=== PATIENT | female | born 1960 | race Caucasian/White ===

== ENCOUNTER 2016-06-18 11:49 | Outpatient (CLI) ==
[2015-09-13 19:44] VITALS: BMI 40.2
[2016-06-18 13:38] LABS: BASOPHILS # (AUTO) 0.1 K/uL (0-0.2); BASOPHILS % (AUTO) 0.7 % (0.0-3.0); EOSINOPHILS # (AUTO) 0.3 K/ul (0.0-0.7); EOSINOPHILS % (AUTO) 2.9 % (0.0-7.0); HEMATOCRIT 47.4 % (37.0-47.0); HEMOGLOBIN 15.3 g/dl (12.0-16.0); IMMATURE GRANULOCYTE % (AUTO) 0.6 % (0.0-5.0); LYMPHOCYTES # (AUTO) 5.2 K/uL (0.60-3.4); LYMPHOCYTES % (AUTO) 48.3 (10.0-50.0); MEAN CORPUSCULAR HEMOGLOBIN 30.5 pg (27.0-31.0); MEAN CORPUSCULAR HGB CONC 32.3 (31.8-35.4); MEAN CORPUSCULAR VOLUME 94.4 fl (81.0-99.0); MONOCYTES # (AUTO) 0.7 K/uL (0.4-2.0); MONOCYTES % (AUTO) 6.3 (0-10); NEUTROPHILS # (AUTO) 4.4 K/ul (2.0-6.9); NEUTROPHILS % (AUTO) 41.2; PLATELET COUNT 190 10^3/uL (140-440); RED BLOOD COUNT 5.02 10^6/ul (4.20-5.40)
[2016-06-18 13:55] LABS: ALBUMIN 3.4 g/dL (3.4-5.0); ANION GAP 15.3; BILIRUBIN,TOTAL 0.5 mg/dL (0.00-1.20); BUN/CREATININE RATIO 31.16; CALCIUM 9.6 mg/dL (8.2-10.2); CHOL/HDL RATIO 2.7 (4.5-5.5); CREATININE 0.77 mg/dL (0.60-1.30); POTASSIUM 3.3 mmol/L (3.5-5.10); TOTAL PROTEIN 6.8 g/dL (6.4-8.2)
== END 2016-06-18 11:50 | disposition home or self-care (01) ==
LOC: LAB 11:49
PROVIDERS: ATTEND General Practice
DX: R30.0 Dysuria (principal); R35.0 Frequency of micturition; E11.8 Type 2 diabetes mellitus with unspecified complications; D64.9 Anemia, unspecified; E03.9 Hypothyroidism, unspecified; I10 Essential (primary) hypertension; J44.9 Chronic obstructive pulmonary disease, unspecified; Z79.899 Other long term (current) drug therapy
CPT/HCPCS: 36415; 80053; 80061; 83036; 85025

== ENCOUNTER 2016-07-10 15:44 | Outpatient (CLI) ==
[2015-09-13 19:44] VITALS: BMI 40.2
[2016-07-11 07:38] LABS: BILIRUBIN,URINE Negative (NEGATIVE); KETONES,URINE Negative (NEGATIVE); LEUKOCYTE ESTERASE ,URINE Negative (NEGATIVE); NITRITE,URINE Negative (NEGATIVE); PROTEIN,URINE Negative (NEGATIVE); URINE, BLOOD Negative (NEGATIVE)
[2016-07-11 07:40] LABS: ADD URINE MICROSCOPIC NO
== END 2016-07-10 15:45 | disposition home or self-care (01) ==
LOC: LAB 15:44
PROVIDERS: ATTEND General Practice
DX: Z79.899 Other long term (current) drug therapy (principal)
CPT/HCPCS: 81001

== ENCOUNTER 2016-08-13 16:20 | Outpatient (CLI) ==
[2015-09-13 19:44] VITALS: BMI 40.2
[2016-08-13 17:20] LABS: ALBUMIN 3.9 g/dL (3.4-5.0); ANION GAP 19.9; BUN/CREATININE RATIO 19.67; CALCIUM 10.2 mg/dL (8.2-10.2); CREATININE 1.22 mg/dL (0.60-1.30); PHOSPHORUS 4.2 mg/dL (2.5-4.9); POTASSIUM 3.9 mmol/L (3.5-5.10)
== END 2016-08-13 16:21 | disposition home or self-care (01) ==
LOC: LAB 16:20
PROVIDERS: ATTEND General Practice
DX: E11.8 Type 2 diabetes mellitus with unspecified complications (principal); I10 Essential (primary) hypertension; E03.9 Hypothyroidism, unspecified; D64.9 Anemia, unspecified; Z79.899 Other long term (current) drug therapy
CPT/HCPCS: 36415; 80069; 83036

== ENCOUNTER 2016-09-04 12:26 | Outpatient (CLI) ==
[2015-09-13 19:44] VITALS: BMI 40.2
--- NOTE | 2016-09-04 13:50 | US ---
EXAM: Thyroid ultrasound HISTORY: Hypothyroidism. COMPARISON: None TECHNIQUE: Sonographic evaluation of the thyroid was performed with limited doppler. FINDINGS: The right thyroid measures 8.5 x 3.7 x 3.1 cm. There is heterogeneous echogenicity and no rmal color Doppler flow. There is a hyperechoic nodule in the right thyroid measuring 0.6 cm in mitch meter with no internal color Doppler flow. The isthmus measures 1.3 cm in thickness and heterogeneity echogenicity. The left thyroid measures 6.4 x 3.8 x 2.3 cm. There is heterogeneous echogenicity and normal color Doppler flow. There is a hypoechoic 1.4 x 1.3 x 1.2 cm nodule with minimal internal echogenicity wi th no internal color Doppler flow. IMPRESSION: Nonspecific heterogeneous echogenicity of the thyroid with hyperechoic nodule on the right less than 1 cm. There is a complex hypoechoic nodule in the left thyroid measuring 1.4 x 1.3 x 1.2 cm. These findings may represent a multinodular goiter, but follow-up ultrasound is recommended. If further e valuation is clinically indicated, nuclear medicine study may be obtained versus soft tissue samplin g.
== END 2016-09-04 12:27 | disposition home or self-care (01) ==
LOC: RAD 12:26
PROVIDERS: ATTEND General Practice
DX: E03.9 Hypothyroidism, unspecified (principal); E11.8 Type 2 diabetes mellitus with unspecified complications

== ENCOUNTER 2016-09-19 15:57 | Outpatient (CLI) ==
[2015-09-13 19:44] VITALS: BMI 40.2
== END 2016-09-19 15:58 | disposition home or self-care (01) ==
LOC: LAB 15:57
PROVIDERS: ATTEND General Practice
DX: E03.9 Hypothyroidism, unspecified (principal); E11.8 Type 2 diabetes mellitus with unspecified complications; I10 Essential (primary) hypertension
CPT/HCPCS: 36415; 84443

== ENCOUNTER 2016-11-11 10:49 | Outpatient (CLI) ==
[2015-09-13 19:44] VITALS: BMI 40.2
[2016-11-11 13:13] LABS: BASOPHILS # (AUTO) 0.1 K/uL (0-0.2); BASOPHILS % (AUTO) 0.6 % (0.0-3.0); EOSINOPHILS # (AUTO) 0.3 K/ul (0.0-0.7); HEMATOCRIT 44.9 % (37.0-47.0); HEMOGLOBIN 15.8 g/dl (12.0-16.0); IMMATURE GRANULOCYTE % (AUTO) 0.2 % (0.0-5.0); LYMPHOCYTES # (AUTO) 2.9 K/uL (0.60-3.4); LYMPHOCYTES % (AUTO) 34.8 (10.0-50.0); MEAN CORPUSCULAR HEMOGLOBIN 32.1 pg (27.0-31.0); MEAN CORPUSCULAR HGB CONC 35.2 (31.8-35.4); MEAN CORPUSCULAR VOLUME 91.3 fl (81.0-99.0); MONOCYTES # (AUTO) 0.8 K/uL (0.4-2.0); MONOCYTES % (AUTO) 9.5 (0-10); NEUTROPHILS # (AUTO) 4.3 K/ul (2.0-6.9); NEUTROPHILS % (AUTO) 51.9; PLATELET COUNT 173 10^3/uL (140-440); RED BLOOD COUNT 4.92 10^6/ul (4.20-5.40); WHITE BLOOD COUNT 8.31 K/ul (4.6-10.2)
[2016-11-11 13:31] LABS: ALBUMIN 3.5 g/dL (3.4-5.0); ALBUMIN/GLOBULIN RATIO 1.03; ANION GAP 13.8; BILIRUBIN,TOTAL 0.64 mg/dL (0.00-1.20); BUN/CREATININE RATIO 16.86; CALCIUM 9.8 mg/dL (8.2-10.2); CHOL/HDL RATIO 4.8 (4.5-5.5); CREATININE 0.83 mg/dL (0.60-1.30); POTASSIUM 3.8 mmol/L (3.5-5.10); TOTAL PROTEIN 6.9 g/dL (6.4-8.2)
== END 2016-11-11 10:50 | disposition home or self-care (01) ==
LOC: LAB 10:49
PROVIDERS: ATTEND General Practice
DX: E11.8 Type 2 diabetes mellitus with unspecified complications (principal); I10 Essential (primary) hypertension; J44.9 Chronic obstructive pulmonary disease, unspecified; E03.9 Hypothyroidism, unspecified; D64.9 Anemia, unspecified; L12.0 Bullous pemphigoid; Z68.43 Body mass index [BMI] 50.0-59.9, adult; Z79.899 Other long term (current) drug therapy
CPT/HCPCS: 36415; 80053; 80061; 83036; 85025

== ENCOUNTER 2016-11-12 16:17 | Outpatient (CLI) ==
[2015-09-13 19:44] VITALS: BMI 40.2
[2016-11-12 16:47] LABS: BILIRUBIN,URINE Negative (NEGATIVE); KETONES,URINE Trace (NEGATIVE); LEUKOCYTE ESTERASE ,URINE Trace (NEGATIVE); NITRITE,URINE Negative (NEGATIVE); PH,URINE 6.5 (5-9); PROTEIN,URINE Negative (NEGATIVE); URINE, BLOOD Negative (NEGATIVE)
[2016-11-12 16:51] LABS: ADD URINE MICROSCOPIC YES
== END 2016-11-12 16:18 | disposition home or self-care (01) ==
LOC: LAB 16:17
PROVIDERS: ATTEND General Practice
DX: E11.8 Type 2 diabetes mellitus with unspecified complications (principal); I10 Essential (primary) hypertension; J44.9 Chronic obstructive pulmonary disease, unspecified; E03.9 Hypothyroidism, unspecified; D64.9 Anemia, unspecified; L12.0 Bullous pemphigoid; Z68.43 Body mass index [BMI] 50.0-59.9, adult; Z79.899 Other long term (current) drug therapy
CPT/HCPCS: 81001

== ENCOUNTER 2016-11-25 16:18 | Outpatient (CLI) ==
[2015-09-13 19:44] VITALS: BMI 40.2
[2016-11-25 16:32] LABS: BASOPHILS % (AUTO) 0.4 % (0.0-3.0); EOSINOPHILS # (AUTO) 0.2 K/ul (0.0-0.7); EOSINOPHILS % (AUTO) 2.1 % (0.0-7.0); HEMATOCRIT 45.5 % (37.0-47.0); IMMATURE GRANULOCYTE % (AUTO) 0.4 % (0.0-5.0); LYMPHOCYTES # (AUTO) 3.1 K/uL (0.60-3.4); LYMPHOCYTES % (AUTO) 34.6 (10.0-50.0); MEAN CORPUSCULAR HGB CONC 35.2 (31.8-35.4); MONOCYTES # (AUTO) 0.7 K/uL (0.4-2.0); MONOCYTES % (AUTO) 7.6 (0-10); NEUTROPHILS % (AUTO) 54.9; PLATELET COUNT 171 10^3/uL (140-440); WHITE BLOOD COUNT 9.08 K/ul (4.6-10.2)
[2016-11-25 16:49] LABS: ALBUMIN 3.5 g/dL (3.4-5.0); ALBUMIN/GLOBULIN RATIO 0.97; ANION GAP 16.6; BILIRUBIN,TOTAL 0.48 mg/dL (0.00-1.20); BUN/CREATININE RATIO 13.86; CALCIUM 9.5 mg/dL (8.2-10.2); CREATININE 1.01 mg/dL (0.60-1.30); POTASSIUM 3.6 mmol/L (3.5-5.10); TOTAL PROTEIN 7.1 g/dL (6.4-8.2)
[2016-11-25 16:50] LABS: BILIRUBIN,URINE Negative (NEGATIVE); KETONES,URINE Trace (NEGATIVE); LEUKOCYTE ESTERASE ,URINE Negative (NEGATIVE); NITRITE,URINE Negative (NEGATIVE); PROTEIN,URINE Negative (NEGATIVE); URINE, BLOOD Negative (NEGATIVE)
[2016-11-25 16:53] LABS: ADD URINE MICROSCOPIC NO
== END 2016-11-25 16:19 | disposition home or self-care (01) ==
LOC: LAB 16:18
PROVIDERS: ATTEND General Practice
DX: E11.8 Type 2 diabetes mellitus with unspecified complications (principal); I10 Essential (primary) hypertension; E03.9 Hypothyroidism, unspecified; Z79.899 Other long term (current) drug therapy
CPT/HCPCS: 36415; 80053; 80061; 81001; 83036; 85025

== ENCOUNTER 2016-11-26 16:13 | Outpatient (CLI) ==
[2015-09-13 19:44] VITALS: BMI 40.2
== END 2016-11-26 16:14 | disposition home or self-care (01) ==
LOC: LAB 16:13
PROVIDERS: ATTEND General Practice
DX: R74.8 Abnormal levels of other serum enzymes (principal)
CPT/HCPCS: 36415; 84075; 84080

== ENCOUNTER 2016-12-30 16:25 | Outpatient (CLI) ==
[2015-09-13 19:44] VITALS: BMI 40.2
== END 2016-12-30 16:26 | disposition home or self-care (01) ==
LOC: LAB 16:25
PROVIDERS: ATTEND General Practice
DX: R74.8 Abnormal levels of other serum enzymes (principal)
CPT/HCPCS: 36415; 84075; 84080

== ENCOUNTER 2017-03-04 12:43 | Outpatient (CLI) ==
[2015-09-13 19:44] VITALS: BMI 40.2
[2017-03-04 13:04] LABS: BASOPHILS # (AUTO) 0.1 K/uL (0-0.2); BASOPHILS % (AUTO) 0.7 % (0.0-3.0); EOSINOPHILS # (AUTO) 0.3 K/ul (0.0-0.7); EOSINOPHILS % (AUTO) 3.7 % (0.0-7.0); HEMATOCRIT 43.8 % (37.0-47.0); HEMOGLOBIN 15.2 g/dl (12.0-16.0); IMMATURE GRANULOCYTE % (AUTO) 0.4 % (0.0-5.0); LYMPHOCYTES # (AUTO) 2.2 K/uL (0.60-3.4); LYMPHOCYTES % (AUTO) 30.9 (10.0-50.0); MEAN CORPUSCULAR HGB CONC 34.7 (31.8-35.4); MEAN CORPUSCULAR VOLUME 89.4 fl (81.0-99.0); MONOCYTES # (AUTO) 0.5 K/uL (0.4-2.0); MONOCYTES % (AUTO) 7.3 (0-10); NEUTROPHILS # (AUTO) 4.1 K/ul (2.0-6.9); PLATELET COUNT 204 10^3/uL (140-440); WHITE BLOOD COUNT 7.22 K/ul (4.6-10.2)
[2017-03-04 13:24] LABS: ALBUMIN/GLOBULIN RATIO 0.73; ANION GAP 13.7; BILIRUBIN,TOTAL 0.38 mg/dL (0.00-1.20); BUN/CREATININE RATIO 27.63; CALCIUM 9.5 mg/dL (8.2-10.2); CHOL/HDL RATIO 6.5 (4.5-5.5); CREATININE 0.76 mg/dL (0.60-1.30); POTASSIUM 3.7 mmol/L (3.5-5.10); TOTAL PROTEIN 7.1 g/dL (6.4-8.2)
[2017-03-05 15:18] LABS: ALKALINE PHOSPHATASE, S 156 IU/L (39-117); INTESTINAL FRAC.: 49 % (0-18)
== END 2017-03-04 12:44 | disposition home or self-care (01) ==
LOC: LAB 12:43
PROVIDERS: ATTEND General Practice
DX: E11.8 Type 2 diabetes mellitus with unspecified complications (principal); R74.8 Abnormal levels of other serum enzymes; I10 Essential (primary) hypertension; Z79.899 Other long term (current) drug therapy
CPT/HCPCS: 36415; 80053; 80061; 83036; 84075; 84080; 85025

== ENCOUNTER 2017-03-24 08:23 | Outpatient (CLI) ==
[2015-09-13 19:44] VITALS: BMI 40.2
--- NOTE | 2017-03-24 09:33 | CT ---
EXAM: CT abdomen pelvis without contrast HISTORY: Abnormal levels of other serum enzymes COMPARISON: None TECHNIQUE: CT abdomen pelvis performed with and without intravenous contrast. Coronal and sagittal reformatted images obtained. FINDINGS: Granulomatous calcification lower chest. No free air. No acute abnormalities of the bone s. Degenerative change in the spine. Heart normal in size. There is enlargement of the caudate lob e of the liver. Patient status post cholecystectomy. Pancreas unremarkable. Granulomatous calcific ation in the spleen. Spleen otherwise unremarkable. Adrenals unremarkable. Kidneys unremarkable. Aorta normal in caliber with mild atherosclerosis. Bladder unremarkable. Patient status post hyster ectomy. Several prominent casper hepatic/portacaval lymph nodes present. No ascites. Small fat-cont aining umbilical hernia. Stomach appears normal. No dilated loops small bowel. Small bowel fecaliza tion, suggesting dysmotility. Appendix not definitively identified. Mild to moderate fecal retention in the colon. IMPRESSION: 1. No acute inflammatory process identified in the abdomen or pelvis. 2. Enlargement of the caudate lobe of the liver, a finding that can be seen in cirrhotic or fibrotic configuration. 3. Several prominent casper hepatic/portacaval lymph nodes, nonspecific, though can be seen in right parenchymal disease. 4. Mild to moderate fecal retention in the colon. Small bowel fecalization, suggesting dysmotility.
== END 2017-03-24 08:24 | disposition home or self-care (01) ==
LOC: RAD 08:23
PROVIDERS: ATTEND General Practice
DX: R74.8 Abnormal levels of other serum enzymes (principal)

== ENCOUNTER 2017-04-30 12:50 | Inpatient (IN) ==
[2017-04-30] MEDS ORDERED: SODIUM CHLORIDE 1,000 ML IV STA (14:07)
[2017-04-30 14:26] LABS: BASOPHILS % (AUTO) 0.2 % (0.0-3.0); HEMATOCRIT 47.4 % (37.0-47.0); HEMOGLOBIN 16.6 g/dl (12.0-16.0); IMMATURE GRANULOCYTE % (AUTO) 0.7 % (0.0-5.0); LYMPHOCYTES # (AUTO) 1.8 K/uL (0.60-3.4); MEAN CORPUSCULAR HEMOGLOBIN 31.7 pg (27.0-31.0); MEAN CORPUSCULAR VOLUME 90.5 fl (81.0-99.0); MONOCYTES # (AUTO) 1.8 K/uL (0.4-2.0); MONOCYTES % (AUTO) 10.1 (0-10); NEUTROPHILS # (AUTO) 14.2 K/ul (2.0-6.9); PLATELET COUNT 185 10^3/uL (140-440); RED BLOOD COUNT 5.24 10^6/ul (4.20-5.40); WHITE BLOOD COUNT 17.98 K/ul (4.6-10.2)
[2017-04-30 15:06] LABS: BILIRUBIN,URINE Negative (NEGATIVE); KETONES,URINE 1+ (NEGATIVE); LEUKOCYTE ESTERASE ,URINE Negative (NEGATIVE); NITRITE,URINE Negative (NEGATIVE); PH,URINE 5.5 (5-9); PROTEIN,URINE Negative (NEGATIVE); URINE, BLOOD 1+ (NEGATIVE)
[2017-04-30 15:10] LABS: ADD URINE MICROSCOPIC YES
--- NOTE | 2017-04-30 15:14 | CT ---
EXAM: CT of the chest without contrast History: Cough. Comparison: Chest radiograph 06/14/2015, chest CT 01/27/2009 Technique: Multiplanar CT images through the thorax were obtained without the administration of IV c ontrast Findings: Heart size is normal. Trace pericardial fluid. No pathologically enlarged thoracic lymph nodes. Thyroid is again diffusely enlarged. Calcified granulomas again seen within the thorax. No consolidated pneumonia. Incidental azygos fissure. No pleural fluid and no pneumothorax. No suspi cious lung masses or lung nodules. Within the visualized upper abdomen, status post cholecystectomy. The liver is probably fatty. No a cute osseous abnormalities. Impression: 1. No acute intrathoracic process. 2. No change in the diffuse thyroid enlargement. 3. Hepatic steatosis
[2017-04-30 15:39] LABS: ALBUMIN 3.1 g/dL (3.4-5.0); ALBUMIN/GLOBULIN RATIO 0.62; BILIRUBIN,TOTAL 1.05 mg/dL (0.00-1.20); BUN/CREATININE RATIO 12.74; CREATININE 1.02 mg/dL (0.60-1.30); TOTAL PROTEIN 8.1 g/dL (6.4-8.2); TROPONIN I 0.052 ng/ml (0.0000-0.4000)
[2017-04-30] MEDS ORDERED: ZOFRAN 4 MG/2 ML IVP STA (16:08)
[2017-04-30] MEDS ORDERED: MORPHINE 10 MG/ML SYRINGE IVP STA (16:08)
--- NOTE | 2017-04-30 16:11 | ED.PDOC ---
General ED Provider: Dr. LOAN GAMBOA Chief Complaint: Nausea/Vomiting Stated Complaint: RASH RIGHT BREAST WITH BREAST PAIN RIGHTSIDED Time Seen by Physician: 13:00 (SEE PHOTOS NURSE PRESENT AT ALL TIMES) Mode of Arrival: Walk-In Information Source: Patient Exam Limitations: No limitations Primary Care Provider[facility] Nursing and Triage Documentation Reviewed and Agree: Yes (SEE PHOTOS) Skin Complaint Exam - Skin/Soft Tissue Complaint/Exam Onset/Duration: 1 DAY BREAST TENDERNESS , FEVER , RIGHT BREAST RASH Symptoms Are: Still present Timing: Constant Initial Severity: Moderate Current Severity: Moderate Location: RIGHT BREAST PHOTOS ATTACHED Character: Reports: Redness, Swelling, Painful. Denies: Raised Aggravating: Reports: Touch Alleviating: Reports: None Associated Signs and Symptoms: Reports: Fever, Tenderness, Red streaks. Denies : Itching, Drainage, Bruising, Joint swelling Related History: Reports: Immunocompromised (D.M.). Denies: Similar episode, Recent trauma, Foreign body, Insect bite/sting, Recent travel Related Surgical History: Reports: None Recent Exposure to Others w/Similar Symptoms: No Skin Findings: Present: Erythema, Other (CELLULITIS ). Absent: Wet ulceration, Dry ulceration, Pustules Joint Tenderness Present: No Differential Diagnoses: Cellulitis Review of Systems - Review Of Systems Constitutional: Reports: No symptoms Eyes: Reports: No symptoms Ears, Nose, Mouth, Throat: Reports: No symptoms Respiratory: Reports: No symptoms Cardiac: Reports: No symptoms GI: Reports: No symptoms : Reports: No symptoms Musculoskeletal: Reports: No symptoms Skin: Reports: Rash (RIGHT BREAST) Neurological: Reports: No symptoms Endocrine: Reports: No symptoms Hematologic/Lymphatic: Reports: No symptoms All Other Systems: Reviewed and Negative Past Medical History - Past Medical History Endocrine: Reports: DM 2, Hypothyroid Cardiovascular: Reports: Hypertension Respiratory: Reports: COPD Hematological: Reports: Anemia Gastrointestinal: Reports: None Genitourinary: Reports: None Neuro/Psych: Reports: None Musculoskeletal: Reports: None Cancer: Reports: None Last Menstrual Period: NA - Surgical History General Surgical History: Reports: Hysterectomy, Cholecystectomy - Family History Family History: Reports: None - Social History Smoking Status: Former smoker Hx Substance Use: No Alcohol Screening: None Physical Exam - Physical Exam Appearance: Well-appearing, No pain distress, Well-nourished Eyes: YURI, EOMI, Conjunctiva clear ENT: Ears normal, Nose normal, Oropharynx normal Respiratory: Airway patent, Breath sounds clear, Breath sounds equal, Respirations nonlabored Cardiovascular: RRR, Pulses normal, No rub, No murmur GI/: Soft, Nontender, No masses, Bowel sounds normal, No Organomegaly Musculoskeletal: Normal strength, ROM intact, No edema, No calf tenderness Skin: Warm, Dry (RIGHT BREAST RASH PAIN SEE PHOTOS) Neurological: Sensation intact, Motor intact, Reflexes intact, Cranial nerves intact, Alert, Oriented Psychiatric: Affect appropriate, Mood appropriate Re-Evaluation - Re-Evaluation Time of Re-Evaluation: 16:14 (ADMITTED) Status: Unchanged Vital Signs Stable: Yes Pain Level: 6 Appearance: NAD Lungs: Clear Skin: Warm and Dry Neuro: Alert and Oriented X3 CV: RRR Physician Notification - Case Discussed Physician Notified: ESPINAL Time of Notification: 16:14 Admit To: Inpatient Critical Care Note - Critical Care Note Total Time (mins): 0 Course - Course Hematology/Chemistry: 04/30/17 14:18 04/30/17 14:18 Orders, Labs, Meds: Lab Review 04/30/17 04/30/17 04/30/17 14:18 14:18 14:18 WBC 17.98 H RBC 5.24 Hgb 16.6 H Hct 47.4 H MCV 90.5 MCH 31.7 H MCHC 35.0 RDW Coeff of Brianne 12.6 Plt Count 185 Immature Gran % (Auto) 0.7 Neut % (Auto) 79.0 Lymph % (Auto) 10.0 [place] % (Auto) 10.1 H Eos % (Auto) 0.0 Baso % (Auto) 0.2 Immature Gran # (Auto) 0.1 Neut # 14.2 H Lymph # 1.8 [place] # 1.8 Eos # 0.0 Baso # 0.0 Sodium 135 L Potassium 4.0 Chloride 98 Carbon Dioxide 23 Anion Gap 18.0 BUN 13 Creatinine 1.02 Estimated GFR (MDRD) 56.00 BUN/Creatinine Ratio 12.74 Glucose 490 H Lactic Acid 31.5 H Calcium 10.0 Total Bilirubin 1.05 AST 14 L ALT 35 Alkaline Phosphatase 115 H Total Creatine Kinase 44 Troponin I 0.0520 Total Protein 8.1 Albumin 3.1 L Globulin 5.0 Albumin/Globulin Ratio 0.62 Procalcitonin Urine Color Urine Clarity Urine pH Ur Specific [place] Urine Protein Urine Glucose (UA) Urine Ketones Urine Blood Urine Nitrite Urine Bilirubin Urine Urobilinogen Ur Leukocyte Esterase Urine Microscopic RBC Ur Squamous Epith Cells Urine Yeast 04/30/17 04/30/17 14:18 14:31 WBC RBC Hgb Hct MCV MCH MCHC RDW Coeff of Brianne Plt Count Immature Gran % (Auto) Neut % (Auto) Lymph % (Auto) [place] % (Auto) Eos % (Auto) Baso % (Auto) Immature Gran # (Auto) Neut # Lymph # [place] # Eos # Baso # Sodium Potassium Chloride Carbon Dioxide Anion Gap BUN Creatinine Estimated GFR (MDRD) BUN/Creatinine Ratio Glucose Lactic Acid Calcium Total Bilirubin AST ALT Alkaline Phosphatase Total Creatine Kinase Troponin I Total Protein Albumin Globulin Albumin/Globulin Ratio Procalcitonin 3.36 Urine Color Yellow Urine Clarity Clear Urine pH 5.5 Ur Specific [place] <=1.005 Urine Protein Negative Urine Glucose (UA) 2+ Urine Ketones 1+ Urine Blood 1+ Urine Nitrite Negative Urine Bilirubin Negative Urine Urobilinogen 0.2 Ur Leukocyte Esterase Negative Urine Microscopic RBC 0-2 Ur Squamous Epith Cells 0-2 Urine Yeast Trace Orders Category Date Time Status EKG-(ED ONLY) Stat CARDIO 04/30/17 14:07 Ordered ED IV/MEDIPORT/POWERPORT .ONCE EMERGENCY 04/30/17 14:07 Active BLOOD CULTURE (ED ONLY) Stat LAB 04/30/17 14:18 Received CBC W/ AUTO DIFF Stat LAB 04/30/17 14:18 Completed COMPREHENSIVE METABOLIC PANEL Stat LAB 04/30/17 14:18 Received CREATINE KINASE Stat LAB 04/30/17 14:18 Received LACTIC ACID Stat LAB 04/30/17 14:18 Completed MOLECULAR GROUP A STREP Stat LAB 04/30/17 14:40 Results PROCALCITONIN Stat LAB 04/30/17 14:18 Completed STREP SCREEN Stat LAB 04/30/17 14:40 Results TROPONIN I Stat LAB 04/30/17 14:18 Received URINALYSIS C & S IF INDICATED Stat LAB 04/30/17 14:31 Completed 0.9 % Sodium Chloride [Saline Flush] MEDS 04/30/17 14:07 Active 1 syr IVF PRN PRN Morphine Sulfate [Morphine 10 mg/ml Syringe] MEDS 04/30/17 16:08 Stat 4 mg IVP ONCE STA Ondansetron HCl/Pf [Zofran 4 mg/2 ml] MEDS 04/30/17 16:08 Stat 4 mg IVP ONCE STA Sodium Chloride 0.9% [Sodium Chloride] 1,000 ml MEDS 04/30/17 14:[address] ABDOMEN/PELVIS WO CONTRAST Stat RADS 04/30/17 15:[address] CHEST W/O CONTRAST Stat RADS 04/30/17 14:08 Completed Medications Generic Name Dose Route Start Last Admin Trade Name Freq PRN Reason Stop Dose Admin Morphine Sulfate 4 mg 04/30/17 16:08 Morphine 10 Mg/Ml Syringe IVP 04/30/17 16:09 ONCE STA Ondansetron HCl 4 mg 04/30/17 16:08 Zofran 4 Mg/2 Ml IVP 04/30/17 16:09 ONCE STA Sodium Chloride 1 syr 04/30/17 14:07 Saline Flush IVF PRN PRN To flush IV Discontinued Medications Generic Name Dose Route Start Last Admin Trade Name Freq PRN Reason Stop Dose Admin Sodium Chloride 1,000 mls @ 1,000 mls/hr 04/30/17 14:07 04/30/17 14:43 Sodium Chloride IV 04/30/17 15:06 1,000 mls/hr BOLUS STA Administration Vital Signs: Temp Pulse Resp BP Pulse Ox 04/30/17 13:04 102.2 F H 118 H 20 134/67 95 Departure - Departure Time of Disposition: 16:13 (ADMITTED AFTER DISCUSSION WITH DOCTOR KYLIE ) Disposition: HOME SELF-CARE Discharge Problem: Nausea, Vomiting, Cellulitis of right breast, Diabetes mellitus type 2 Instructions: Cellulitis (ED) Condition: Good Pt referred to PMD for follow-up: Yes Additional Instructions: Please call your Family Physician as soon as possible to schedule a follow-up appointment. Allergies/Adverse Reactions: Allergies latex Adverse Reaction (Unverified 04/08/17 13:54) Home Medications: Ambulatory Orders Hydrochlorothiazide 12.5 mg PO DAILY 02/15/13 Disposition Discussed With: Patient
[2017-04-30] MEDS ORDERED: MORPHINE 2 MG/ML SYRINGE IM STA (16:15)
[2017-04-30] MEDS ORDERED: ZOFRAN 4 MG/2 ML IVP PRN (16:19)
[2017-04-30] MEDS ORDERED: HUMULIN R SUBCUT STA (16:21)
--- NOTE | 2017-04-30 16:21 | CT ---
EXAM: CT Abdomen without contrast. CT Pelvis without contrast. HISTORY: Right-sided abdominal pain. Nausea and vomiting. Fever. COMPARISON: 03/24/2017. TECHNIQUE: Multiple axial images of the abdomen and pelvis were obtained without intravenous contras t. Images were reformatted in the coronal plane. FINDINGS: Please note that evaluation of the abdominal and pelvic structures is limited due to lack of intravenous contrast. No acute abnormality identified in the lung bases. Degenerative changes present in the spine. The liver is enlarged and demonstrates a nodular surface contour. Port hepatic lymph nodes again not ed. Gallbladder is absent. Pancreas, spleen, adrenal glands demonstrate normal contour. No calcifi ed renal stones or hydronephrosis detected. No ureteral or bladder calculi are seen. Bladder is unr emarkable. Uterus is absent. The bowel is normal in course and caliber without evidence for obstruction or inflammatory process. The appendix is not seen. Fat-containing umbilical hernia noted. No free fluid or free air identifi ed. Atherosclerotic calcifications are present. IMPRESSION: 1. No acute abnormality within the abdomen or pelvis. 2. Cirrhosis.
[2017-04-30] MEDS ORDERED: ROCEPHIN ONE (16:50)
[2017-04-30] MEDS: ROCEPHIN 1 GM in SODIUM CHLORIDE 50 ML IV SCH (16:57)
[2017-04-30] MEDS: SODIUM CHLORIDE 1,000 ML IV SCH (16:57)
[2017-04-30] MEDS ORDERED: VANCOMYCIN 1 GM in SODIUM CHLORIDE 250 ML IV ONE (17:00)
[2017-04-30] MEDS ORDERED: MORPHINE 4 MG/ML VIAL IVP SCH (18:00)
[2017-04-30 18:07] VITALS: BMI 46.7
[2017-04-30] MEDS ORDERED: NON-FORMULARY MEDICATION (Ferrous Sulfate [Ferrous Sulfate] 1 TAB) PO SCH (21:00)
[2017-04-30] MEDS ORDERED: MORPHINE 4 MG/ML VIAL IVP PRN (21:37)
[2017-04-30] MEDS: HUMULIN R SUBCUT PRN (22:26)
[2017-05-01] MEDS: TYLENOL PO PRN ×2 (02:59→12:09)
[2017-05-01 05:40] LABS: BASOPHILS # (AUTO) 0.1 K/uL (0-0.2); BASOPHILS % (AUTO) 0.2 % (0.0-3.0); HEMATOCRIT 39.1 % (37.0-47.0); HEMOGLOBIN 13.5 g/dl (12.0-16.0); IMMATURE GRANULOCYTE % (AUTO) 1.3 % (0.0-5.0); LYMPHOCYTES # (AUTO) 2.6 K/uL (0.60-3.4); LYMPHOCYTES % (AUTO) 12.5 (10.0-50.0); MEAN CORPUSCULAR HEMOGLOBIN 31.8 pg (27.0-31.0); MEAN CORPUSCULAR HGB CONC 34.5 (31.8-35.4); MEAN CORPUSCULAR VOLUME 92.2 fl (81.0-99.0); MONOCYTES # (AUTO) 2.5 K/uL (0.4-2.0); MONOCYTES % (AUTO) 12.3 (0-10); NEUTROPHILS # (AUTO) 15.2 K/ul (2.0-6.9); NEUTROPHILS % (AUTO) 73.7; PLATELET COUNT 162 10^3/uL (140-440); RED BLOOD COUNT 4.24 10^6/ul (4.20-5.40); WHITE BLOOD COUNT 20.59 K/ul (4.6-10.2)
[2017-05-01 05:59] LABS: ALBUMIN 2.3 g/dL (3.4-5.0); ALBUMIN/GLOBULIN RATIO 0.58; ANION GAP 14.6; BILIRUBIN,TOTAL 0.84 mg/dL (0.00-1.20); BUN/CREATININE RATIO 18.82; CALCIUM 8.5 mg/dL (8.2-10.2); CREATININE 0.85 mg/dL (0.60-1.30); POTASSIUM 3.6 mmol/L (3.5-5.10); TOTAL PROTEIN 6.3 g/dL (6.4-8.2)
[2017-05-01] MEDS: HUMULIN R SUBCUT PRN ×4 (06:14→21:16)
[2017-05-01] MEDS ORDERED: SYNTHROID PO SCH (06:30)
[2017-05-01] MEDS ORDERED: NON-FORMULARY MEDICATION (Hydrochlorothiazide [Hydrochlorothiazide] 12.5 MG) PO SCH ×22 (09:00)
[2017-05-01] MEDS ORDERED: ESTRADIOL 1 MG PO SCH ×22 (09:00)
[2017-05-01] MEDS ORDERED: INSULN ASP SQ SCH (09:00)
[2017-05-01] MEDS ORDERED: LEVOTHYROXINE SODIUM PO SCH (09:00)
[2017-05-01] MEDS ORDERED: [UNRECOGNIZED DRUG - OTHER] SQ SCH (09:00)
[2017-05-01] MEDS ORDERED: BENAZEPRIL HCL PO SCH (09:00)
[2017-05-01] MEDS ORDERED: LOVASTATIN PO SCH (09:00)
[2017-05-01] MEDS ORDERED: VANCOMYCIN 750 MG in SODIUM CHLORIDE 250 ML IV SCH (09:00)
[2017-05-01] MEDS ORDERED: INSULIN ASPART PROT SQ SCH (09:00)
[2017-05-01] MEDS: ESTRADIOL PO SCH (09:36)
[2017-05-01] MEDS: MEVACOR PO SCH (09:36)
[2017-05-01] MEDS: SYNTHROID PO SCH (09:36)
[2017-05-01] MEDS: FERROUS SULFATE PO SCH ×2 (09:37→20:33)
[2017-05-01] MEDS: NORVASC PO SCH (09:37)
[2017-05-01] MEDS: LOTENSIN PO SCH (09:37)
[2017-05-01] MEDS: HYDROCHLOROTHIAZIDE PO SCH (09:37)
[2017-05-01] MEDS: SODIUM CHLORIDE 1,000 ML IV SCH (09:41)
--- NOTE | 2017-05-01 11:51 | PCM.PROG ---
Attending Provider: ATTENDING PROVIDER: Dr. ROMA ESPINAL This patient is seen with Temi Nye, Nurse Practitioner. DATE OF SERVICE: 05/01/17 SUBJECTIVE: This 56 year old WHITE/ F was hospitalized 04/30/17. The patient is lying in bed, alert. She states she had fever last night but none this morning , _Pain is slightly better. REVIEW OF SYSTEMS: CONSTITUTIONAL: No night sweats. No fatigue, malaise, lethargy. No fever or chills. HEENT: Eyes: No visual changes. No eye pain. No eye discharge. ENT: No runny nose. No epistaxis. No sinus pain. No odynophagia. No congestion. RESPIRATORY: No cough, no congestion. No hemoptysis. No shortness of breath. CARDIOVASCULAR: No angina symptoms. No CHF symptoms. No atypical chest pain for CAD. No palpitations. No orthopnea.. GASTROINTESTINAL: No abdominal pain. No nausea or vomiting. No diarrhea or constipation. No hematemesis. No hematochezia. GENITOURINARY: No urgency. No frequency. No dysuria. No hematuria. No obstructive symptoms. No discharge. No pain. No significant abnormal bleeding. MUSCULOSKELETAL: Right breast pain and redness. NEUROLOGICAL: Awake, alert, oriented to time, place and person. No headache. No neck pain. No syncope. No seizures. No dizziness. PSYCHIATRIC: Not anxious. No depression. No suicidal thoughts. No homicidal thoughts. SKIN: Redness and erythema right breast. ENDOCRINE: No unexplained weight loss. No weight gain. HEMATOLOGIC/LYMPHATIC: No anemia. No purpura. No petechiae. No prolonged or excessive bleeding. No palpable lymph nodes. PHYSICAL EXAMINATION: GENERAL: The patient is awake, alert and oriented, lying in bed in no distress. VITAL SIGNS: Temperature 98.4 F, Pulse 107, Respiratory Rate 19, BP 103/63, Pulse Ox 92% HEENT: Head normocephalic, atraumatic. Eyes: Extraocular muscles are intact. Pupils are equal, round and reactive to light and accommodation. Ears: No lesions. Nose appeared normal. Throat: No exudate or erythema. NECK: Supple. No JVD, no carotid bruit. No lymphadenopathy or thyromegaly. LUNGS: Clear to auscultation. Percussion note normal. Chest symmetrical. BREASTS: Right breast erythema right and left lower quadrant with slight tenderness right lower quadrant. No nipple discharge. HEART: S1, S2, no S3. No murmurs. No cyanosis or clubbing. No ascites. Pulses: Dorsalis pedis and posterior tibial pulses +1 to +2 both sides. ABDOMEN: Soft. Non-tender. Bowel sounds active. No CVA tenderness. No mass felt. EXTREMITIES: No edema. Full range of motion of all extremities, equal. NEUROLOGIC: No focal deficit. Cranial nerves II through XII are grossly intact. No headache, no double vision or headache. SKIN: Not dry. Intact. Turgor-normal. LYMPHATIC: No palpable lymph nodes/no lymphedema. MUSCULOSKELETAL: Normal joints with no swelling. Muscle tone is normal. LAB REVIEW: 05/01/17 05:37 05/01/17 05:37 05/01/17 05:37: Sodium 134 L, Potassium 3.6, Chloride 102, Carbon Dioxide 21, Anion Gap 14.6, BUN 16, Creatinine 0.85, Estimated GFR (MDRD) 69.00, BUN/ Creatinine Ratio 18.82, Glucose 439 H D, Calcium 8.5, Total Bilirubin 0.84, AST 13 L, ALT 26, Alkaline Phosphatase 92, Total Protein 6.3 L, Albumin 2.3 L, Globulin 4.0, Albumin/Globulin Ratio 0.58 05/01/17 05:37: WBC 20.59 H, RBC 4.24, Hgb 13.5 D, Hct 39.1 D, MCV 92.2, MCH 31.8 H, MCHC 34.5, RDW Coeff of Brianne 12.7, Plt Count 162, Immature Gran % (Auto) 1.3, Neut % (Auto) 73.7, Lymph % (Auto) 12.5, [place] % (Auto) 12.3 H, Eos % (Auto ) 0.0, Baso % (Auto) 0.2, Immature Gran # (Auto) 0.3, Neut # 15.2 H, Lymph # 2.6 , [place] # 2.5 H, Eos # 0.0, Baso # 0.1 04/30/17 21:48: Glucose 568 H* D ASSESSMENT: 1. Right breast cellulitis 2. Uncontrolled Diabetes Mellitus Type 2 3. Obesity PLAN: 1. US breast, right 2. Toradol 30 mg q.8 JODY 3. A1C 4. Thyroid labs 5. CBC, CMP daily 6. Start Lantus 20 units if Basaglar unavailable Plan and coordination of the patient's care discussed in the presence of Pay Station Department Manager and nurse. CONDITION: Stable SCRIBED BY: Romain JASSOist scribed while in presence of service performed by Dr. Espinal/Temi Nye APRN on 05/01/17 ([id number])
[2017-05-01] MEDS: ROCEPHIN 1 GM in SODIUM CHLORIDE 50 ML IV SCH (12:34)
[2017-05-01] MEDS: HUMALOG MIX 75-25 SUBCUT SCH (12:48)
[2017-05-01] MEDS: TORADOL IVP SCH ×2 (14:39→20:34)
[2017-05-01] MEDS ORDERED: MORPHINE 4 MG/ML SYRINGE IVP PRN (16:00)
[2017-05-01] MEDS ORDERED: DECADRON 4 MG/ML SDV IM STA (16:30)
[2017-05-01] MEDS ORDERED: LANTUS SUBCUT SCH (21:00)
[2017-05-01] MEDS: VANCOMYCIN 750 MG in SODIUM CHLORIDE 250 ML IV SCH (22:54)
[2017-05-02] MEDS: SODIUM CHLORIDE 1,000 ML IV SCH (04:30)
[2017-05-02] MEDS: TORADOL IVP SCH ×3 (05:37→20:16)
[2017-05-02] MEDS: SYNTHROID PO SCH (05:38)
[2017-05-02 05:57] LABS: BASOPHILS # (AUTO) 0.1 K/uL (0-0.2); BASOPHILS % (AUTO) 0.3 % (0.0-3.0); HEMATOCRIT 42.6 % (37.0-47.0); HEMOGLOBIN 14.1 g/dl (12.0-16.0); IMMATURE GRANULOCYTE % (AUTO) 1.2 % (0.0-5.0); LYMPHOCYTES # (AUTO) 1.2 K/uL (0.60-3.4); LYMPHOCYTES % (AUTO) 8.3 (10.0-50.0); MEAN CORPUSCULAR HEMOGLOBIN 30.5 pg (27.0-31.0); MEAN CORPUSCULAR HGB CONC 33.1 (31.8-35.4); MEAN CORPUSCULAR VOLUME 92.2 fl (81.0-99.0); MONOCYTES % (AUTO) 6.5 (0-10); NEUTROPHILS # (AUTO) 12.3 K/ul (2.0-6.9); NEUTROPHILS % (AUTO) 83.7; PLATELET COUNT 166 10^3/uL (140-440); RED BLOOD COUNT 4.62 10^6/ul (4.20-5.40); WHITE BLOOD COUNT 14.67 K/ul (4.6-10.2)
[2017-05-02 06:22] LABS: ALBUMIN 2.2 g/dL (3.4-5.0); ALBUMIN/GLOBULIN RATIO 0.48; ANION GAP 12.5; BILIRUBIN,TOTAL 0.38 mg/dL (0.00-1.20); BUN/CREATININE RATIO 24.46; CALCIUM 8.4 mg/dL (8.2-10.2); CREATININE 0.94 mg/dL (0.60-1.30); POTASSIUM 4.5 mmol/L (3.5-5.10); TOTAL PROTEIN 6.8 g/dL (6.4-8.2)
[2017-05-02] MEDS: HUMULIN R SUBCUT PRN ×4 (06:36→20:17)
[2017-05-02] MEDS: HUMALOG MIX 75-25 SUBCUT SCH (08:18)
[2017-05-02] MEDS: ESTRADIOL PO SCH (08:20)
[2017-05-02] MEDS: HYDROCHLOROTHIAZIDE PO SCH (08:20)
[2017-05-02] MEDS: FERROUS SULFATE PO SCH ×2 (08:21→20:16)
[2017-05-02] MEDS: ROCEPHIN 1 GM in SODIUM CHLORIDE 50 ML IV SCH (08:21)
[2017-05-02] MEDS: NORVASC PO SCH (08:30)
[2017-05-02] MEDS: MEVACOR PO SCH (08:32)
[2017-05-02] MEDS ORDERED: SODIUM CHLORIDE 500 ML IV SCH ×2 (09:00)
--- NOTE | 2017-05-02 09:42 | US ---
EXAM: Right breast ultrasound. History: Red and swollen right breast. Technique: Multiple sonographic images through the right breast were obtained. Color duplex Doppler was used to interrogate vascular flow. Findings: Multifocal ill-defined hypoattenuating areas seen within the right breast and diffuse right breast edema with skin thickening. No drainable fluid collections. Impression: Findings in the right breast could be due to mastitis or underlying inflammatory breast cancer. Recommend followup ultrasound in 1-2 weeks after antibiotic treatment. If this does not reso lve, then an diagnostic mammogram will be necessary.
--- NOTE | 2017-05-02 09:42 | PCM.PROG ---
Attending Provider: ATTENDING PROVIDER: Dr. ROMA ESPINAL This patient is seen with Temi Nye, Nurse Practitioner. DATE OF SERVICE: 05/02/17 SUBJECTIVE: This 56 year old WHITE/ F was hospitalized 04/30/17. The patient is sitting up in bed, alert. Redness slightly improved. Fevers have been lower. REVIEW OF SYSTEMS: CONSTITUTIONAL: No night sweats. No fatigue, malaise, lethargy. No fever or chills. HEENT: Eyes: No visual changes. No eye pain. No eye discharge. ENT: No runny nose. No epistaxis. No sinus pain. No odynophagia. No congestion. RESPIRATORY: No cough, no congestion. No hemoptysis. No shortness of breath. BREASTS: Right breast pain and redness. CARDIOVASCULAR: No angina symptoms. No CHF symptoms. No atypical chest pain for CAD. No palpitations. No orthopnea.. GASTROINTESTINAL: No abdominal pain. No nausea or vomiting. No diarrhea or constipation. No hematemesis. No hematochezia. GENITOURINARY: No urgency. No frequency. No dysuria. No hematuria. No obstructive symptoms. No discharge. No pain. No significant abnormal bleeding. MUSCULOSKELETAL: No musculoskeletal pain; no joint swelling. NEUROLOGICAL: Awake, alert, oriented to time, place and person. No headache. No neck pain. No syncope. No seizures. No dizziness. PSYCHIATRIC: Not anxious. No depression. No suicidal thoughts. No homicidal thoughts. SKIN: Redness right breast. ENDOCRINE: No unexplained weight loss. No weight gain. HEMATOLOGIC/LYMPHATIC: No anemia. No purpura. No petechiae. No prolonged or excessive bleeding. No palpable lymph nodes. PHYSICAL EXAMINATION: GENERAL: The patient is awake, alert and oriented, sitting on the side of the bed in no distress. VITAL SIGNS: Temperature 98.0 F, Pulse 79, Respiratory Rate 18, BP 121/71, Pulse Ox 91% HEENT: Head normocephalic, atraumatic. Eyes: Extraocular muscles are intact. Pupils are equal, round and reactive to light and accommodation. Ears: No lesions. Nose appeared normal. Throat: No exudate or erythema. NECK: Supple. No JVD, no carotid bruit. No lymphadenopathy or thyromegaly. LUNGS: Clear to auscultation. Percussion note normal. Chest symmetrical. HEART: S1, S2, no S3. No murmurs. No cyanosis or clubbing. No ascites. Pulses: Dorsalis pedis and posterior tibial pulses +1 to +2 both sides. ABDOMEN: Soft. Non-tender. Bowel sounds active. No CVA tenderness. No mass felt. EXTREMITIES: No edema. Full range of motion of all extremities, equal. NEUROLOGIC: No focal deficit. Cranial nerves II through XII are grossly intact. No headache, no double vision or headache. SKIN: Warm, dry and intact. Turgor-normal. Breast right erythema top of breast improved, still with firmness, tenderness and redness right underside of breast. no nipple discharge. LYMPHATIC: No palpable lymph nodes/no lymphedema. MUSCULOSKELETAL: Normal joints with no swelling. Muscle tone is normal. LAB REVIEW: 05/02/17 05:21 05/02/17 05:21 05/02/17 05:21: Sodium 134 L, Potassium 4.5, Chloride 101, Carbon Dioxide 25, Anion Gap 12.5, BUN 23 H, Creatinine 0.94, Estimated GFR (MDRD) 61.00, BUN/ Creatinine Ratio 24.46, Glucose 517 H* D, Calcium 8.4, Total Bilirubin 0.38, AST 19, ALT 27, Alkaline Phosphatase 108 H, Total Protein 6.8, Albumin 2.2 L, Globulin 4.6, Albumin/Globulin Ratio 0.48 05/02/17 05:21: WBC 14.67 H D, RBC 4.62, Hgb 14.1, Hct 42.6, MCV 92.2, MCH 30.5 , MCHC 33.1, RDW Coeff of Brianne 12.5, Plt Count 166, Immature Gran % (Auto) 1.2, Neut % (Auto) 83.7, Lymph % (Auto) 8.3 L, [place] % (Auto) 6.5, Eos % (Auto) 0.0, Baso % (Auto) 0.3, Immature Gran # (Auto) 0.2, Neut # 12.3 H, Lymph # 1.2, [place] # 1.0, Eos # 0.0, Baso # 0.1 05/01/17 05:15: TSH 1.679, Free T4 0.67 05/01/17 05:15: Hemoglobin A1c 13.1 H ASSESSMENT: 1. Right breast cellulitis 2. Uncontrolled Diabetes Mellitus Type 2 3. Obesity PLAN: 1. Increase Lantus to 30 2. US right breast today Plan and coordination of the patient's care discussed in the presence of Tree [employer] Nut Crops Farmer and nurse. CONDITION: Stable SCRIBED BY: BRI MULLEN [employer] Application Consultant scribed while in presence of service performed by Dr. Espinal/Temi Nye APRN on 05/02/17 ([id number])
[2017-05-02] MEDS: VANCOMYCIN 750 MG in SODIUM CHLORIDE 250 ML IV SCH ×2 (10:02→20:16)
[2017-05-02] MEDS ORDERED: DECADRON 4 MG/ML SDV IM STA (13:56)
[2017-05-02] MEDS: LOTENSIN PO SCH (14:31)
[2017-05-02] MEDS: LANTUS SUBCUT SCH (20:16)
[2017-05-03] MEDS: SODIUM CHLORIDE 1,000 ML IV SCH ×2 (00:19→18:09)
[2017-05-03] MEDS: SYNTHROID PO SCH (05:40)
[2017-05-03] MEDS: TORADOL IVP SCH ×3 (05:40→20:15)
[2017-05-03 06:16] LABS: BASOPHILS % (AUTO) 0.2 % (0.0-3.0); EOSINOPHILS % (AUTO) 0.1 % (0.0-7.0); HEMOGLOBIN 14.3 g/dl (12.0-16.0); IMMATURE GRANULOCYTE % (AUTO) 0.4 % (0.0-5.0); LYMPHOCYTES # (AUTO) 1.4 K/uL (0.60-3.4); LYMPHOCYTES % (AUTO) 12.2 (10.0-50.0); MEAN CORPUSCULAR HEMOGLOBIN 30.4 pg (27.0-31.0); MEAN CORPUSCULAR HGB CONC 33.3 (31.8-35.4); MEAN CORPUSCULAR VOLUME 91.3 fl (81.0-99.0); MONOCYTES # (AUTO) 0.6 K/uL (0.4-2.0); MONOCYTES % (AUTO) 5.3 (0-10); NEUTROPHILS # (AUTO) 9.5 K/ul (2.0-6.9); NEUTROPHILS % (AUTO) 81.8; PLATELET COUNT 211 10^3/uL (140-440); RED BLOOD COUNT 4.71 10^6/ul (4.20-5.40)
[2017-05-03 06:36] LABS: ALBUMIN 2.3 g/dL (3.4-5.0); ALBUMIN/GLOBULIN RATIO 0.52; ANION GAP 12.1; BILIRUBIN,TOTAL 0.32 mg/dL (0.00-1.20); BUN/CREATININE RATIO 29.76; CALCIUM 9.3 mg/dL (8.2-10.2); CREATININE 0.84 mg/dL (0.60-1.30); POTASSIUM 4.1 mmol/L (3.5-5.10); TOTAL PROTEIN 6.7 g/dL (6.4-8.2)
[2017-05-03] MEDS: HUMULIN R SUBCUT PRN ×4 (08:00→20:48)
[2017-05-03] MEDS: ROCEPHIN 1 GM in SODIUM CHLORIDE 50 ML IV SCH (08:23)
[2017-05-03] MEDS: NORVASC PO SCH (08:29)
[2017-05-03] MEDS: MEVACOR PO SCH (08:29)
[2017-05-03] MEDS: ESTRADIOL PO SCH (08:29)
[2017-05-03] MEDS: HYDROCHLOROTHIAZIDE PO SCH (08:30)
[2017-05-03] MEDS: FERROUS SULFATE PO SCH ×2 (08:30→20:15)
[2017-05-03] MEDS: HUMALOG MIX 75-25 SUBCUT SCH (08:44)
[2017-05-03] MEDS: LOTENSIN PO SCH (08:49)
[2017-05-03] MEDS: VANCOMYCIN 750 MG in SODIUM CHLORIDE 250 ML IV SCH (10:20)
[2017-05-03] MEDS: VANCOMYCIN 1 GM in SODIUM CHLORIDE 250 ML IV SCH ×2 (10:54→20:15)
[2017-05-03] MEDS: LANTUS SUBCUT SCH (20:15)
[2017-05-04 05:20] LABS: BASOPHILS # (AUTO) 0.1 K/uL (0-0.2); BASOPHILS % (AUTO) 0.6 % (0.0-3.0); EOSINOPHILS # (AUTO) 0.4 K/ul (0.0-0.7); EOSINOPHILS % (AUTO) 4.1 % (0.0-7.0); HEMATOCRIT 40.3 % (37.0-47.0); HEMOGLOBIN 13.5 g/dl (12.0-16.0); IMMATURE GRANULOCYTE % (AUTO) 1.1 % (0.0-5.0); LYMPHOCYTES # (AUTO) 2.7 K/uL (0.60-3.4); LYMPHOCYTES % (AUTO) 28.8 (10.0-50.0); MEAN CORPUSCULAR HEMOGLOBIN 30.7 pg (27.0-31.0); MEAN CORPUSCULAR HGB CONC 33.5 (31.8-35.4); MEAN CORPUSCULAR VOLUME 91.6 fl (81.0-99.0); MONOCYTES # (AUTO) 0.9 K/uL (0.4-2.0); NEUTROPHILS # (AUTO) 5.3 K/ul (2.0-6.9); NEUTROPHILS % (AUTO) 56.4; PLATELET COUNT 232 10^3/uL (140-440); WHITE BLOOD COUNT 9.42 K/ul (4.6-10.2)
[2017-05-04 05:44] LABS: ALBUMIN/GLOBULIN RATIO 0.54; ANION GAP 11.7; BILIRUBIN,TOTAL 0.28 mg/dL (0.00-1.20); CALCIUM 8.8 mg/dL (8.2-10.2); CREATININE 0.76 mg/dL (0.60-1.30); POTASSIUM 3.7 mmol/L (3.5-5.10); TOTAL PROTEIN 5.7 g/dL (6.4-8.2)
[2017-05-04] MEDS: SYNTHROID PO SCH (05:52)
[2017-05-04] MEDS: SODIUM CHLORIDE 1,000 ML IV SCH ×2 (05:52→09:19)
[2017-05-04] MEDS: TORADOL IVP SCH ×3 (05:53→21:10)
[2017-05-04] MEDS: HUMULIN R SUBCUT PRN ×4 (06:38→20:52)
[2017-05-04] MEDS: HUMALOG MIX 75-25 SUBCUT SCH (08:24)
[2017-05-04] MEDS: LOTENSIN PO SCH (08:30)
[2017-05-04] MEDS: HYDROCHLOROTHIAZIDE PO SCH (08:32)
[2017-05-04] MEDS: FERROUS SULFATE PO SCH ×2 (08:33→21:10)
[2017-05-04] MEDS: ESTRADIOL PO SCH (08:33)
[2017-05-04] MEDS: MEVACOR PO SCH (08:34)
[2017-05-04] MEDS: NORVASC PO SCH (08:34)
[2017-05-04] MEDS: ROCEPHIN 1 GM in SODIUM CHLORIDE 50 ML IV SCH (08:35)
[2017-05-04] MEDS: VANCOMYCIN 1 GM in SODIUM CHLORIDE 250 ML IV SCH ×2 (09:25→21:10)
[2017-05-04] MEDS: LANTUS SUBCUT SCH (20:52)
[2017-05-04] MEDS: TYLENOL PO PRN (21:31)
[2017-05-05] MEDS: SODIUM CHLORIDE 1,000 ML IV SCH ×3 (04:25→20:01)
[2017-05-05] MEDS: TORADOL IVP SCH ×3 (04:26→20:02)
[2017-05-05] MEDS: SYNTHROID PO SCH (06:33)
[2017-05-05] MEDS: HUMULIN R SUBCUT PRN ×4 (06:33→20:02)
[2017-05-05] MEDS: HUMALOG MIX 75-25 SUBCUT SCH (08:06)
[2017-05-05] MEDS: NORVASC PO SCH (08:37)
[2017-05-05] MEDS: MEVACOR PO SCH (08:37)
[2017-05-05] MEDS: ESTRADIOL PO SCH (08:37)
[2017-05-05] MEDS: LOTENSIN PO SCH (08:37)
[2017-05-05] MEDS: HYDROCHLOROTHIAZIDE PO SCH (08:38)
[2017-05-05] MEDS: FERROUS SULFATE PO SCH ×2 (08:38→20:02)
--- NOTE | 2017-05-05 08:39 | PN ---
DATE OF SERVICE: 05/01/17 SUBJECTIVE: 56 year old white female hospitalized with cellulitis of the right breast. The patient's WBC count is 20,000. She is on double antibiotics. Ultrasound has been ordered. PHYSICAL EXAMINATION: HEENT: Head normocephalic, atraumatic. Eyes: Extraocular muscles are intact. Pupils are equal, round and reactive to light and accommodation. Ears: No lesions. Nose appeared normal. Throat: No exudate or erythema. NECK: Supple. No JVD, no carotid bruit. No lymphadenopathy or thyromegaly. LUNGS: Clear to auscultation. Percussion note normal. Chest symmetrical. HEART: S1, S2, no S3. No murmurs. No cyanosis or clubbing. No ascites. Pulses: Dorsalis pedis and posterior tibial pulses +1 to +2 both sides. ABDOMEN: Soft. Nontender. Bowel sounds active. No CVA tenderness. No mass felt. EXTREMITIES: No edema. Full range of motion of all extremities, equal. BREAST: Right breast has redness with induration. Ultrasound will be done. NEUROLOGIC: No focal deficit. Cranial nerves II through XII are grossly intact. No headache, no double vision or headache. SKIN: Not dry. Intact. Turgor - normal. LYMPHATIC: No palpable lymph nodes/no lymphedema. MUSCULOSKELETAL: Normal joints with no swelling. Muscle tone is normal. PLAN: 1. Blood sugar is out of control, will be followed with sliding scale. The patient was seen and examined with Nurse Practitioner. TIME SPENT: More than 30 minutes. Plan and coordination of the patient's care discussed in the presence of nurse. HOLDEN
[2017-05-05] MEDS: ROCEPHIN 1 GM in SODIUM CHLORIDE 50 ML IV SCH (08:40)
--- NOTE | 2017-05-05 08:47 | PN ---
/DATE OF SERVICE: 04/30/17 ADMIT NOTE SUBJECTIVE: 56 year old white female seen in the emergency room on 04/30/17. Dr. Burns was commission auditor. I checked out the patient and the patient had cellulitis of the right breast. We discussed the medications. The patient will be put on Rocephin and Vancomycin. The patient has diabetes mellitus which will be controlled with sliding scale. The patient was explained about the diagnosis. The patient condition is stable. The patient will be given Toradol 30mg Q 8 hours with pain medications. CONDITION: Stable. TIME SPENT: More than 30 minutes. Plan and coordination of the patient's care discussed in the presence of nurse. HOLDEN
--- NOTE | 2017-05-05 09:15 | PCM.PROG ---
Attending Provider: ATTENDING PROVIDER: Dr. ROMA ESPINAL This patient is seen with Temi Nye, Nurse Practitioner. DATE OF SERVICE: 05/05/17 SUBJECTIVE: This 56 year old WHITE/ F was hospitalized 04/30/17. The patient is sitting on the side of the bed. The patient's tenderness is better, redness is better although fever of 101 last night. REVIEW OF SYSTEMS: CONSTITUTIONAL: No night sweats. No fatigue, malaise, lethargy. No fever or chills. HEENT: Eyes: No visual changes. No eye pain. No eye discharge. ENT: No runny nose. No epistaxis. No sinus pain. No odynophagia. No congestion. RESPIRATORY: No cough, no congestion. No hemoptysis. No shortness of breath. BREASTS: Right breast pain and improved redness. CARDIOVASCULAR: No angina symptoms. No CHF symptoms. No atypical chest pain for CAD. No palpitations. No orthopnea.. GASTROINTESTINAL: No abdominal pain. No nausea or vomiting. No diarrhea or constipation. No hematemesis. No hematochezia. GENITOURINARY: No urgency. No frequency. No dysuria. No hematuria. No obstructive symptoms. No discharge. No pain. No significant abnormal bleeding. MUSCULOSKELETAL: No musculoskeletal pain; no joint swelling. NEUROLOGICAL: Awake, alert, oriented to time, place and person. No headache. No neck pain. No syncope. No seizures. No dizziness. PSYCHIATRIC: Not anxious. No depression. No suicidal thoughts. No homicidal thoughts. SKIN: [place] erythema of the right breast. ENDOCRINE: No unexplained weight loss. No weight gain. HEMATOLOGIC/LYMPHATIC: No anemia. No purpura. No petechiae. No prolonged or excessive bleeding. No palpable lymph nodes. PHYSICAL EXAMINATION: GENERAL: The patient is awake, alert and oriented, sitting on side of bed in no distress. VITAL SIGNS: Temperature 98.6 F, Pulse 77, Respiratory Rate 20, BP 135/81, Pulse Ox 94% HEENT: Head normocephalic, atraumatic. Eyes: Extraocular muscles are intact. Pupils are equal, round and reactive to light and accommodation. Ears: No lesions. Nose appeared normal. Throat: No exudate or erythema. NECK: Supple. No JVD, no carotid bruit. No lymphadenopathy or thyromegaly. LUNGS: Clear to auscultation. Percussion note normal. Chest symmetrical. HEART: S1, S2, no S3. No murmurs. No cyanosis or clubbing. No ascites. Pulses: Dorsalis pedis and posterior tibial pulses +1 to +2 both sides. ABDOMEN: Soft. Non-tender. Bowel sounds active. No CVA tenderness. No mass felt. EXTREMITIES: No edema. Full range of motion of all extremities, equal. NEUROLOGIC: No focal deficit. Cranial nerves II through XII are grossly intact. No headache, no double vision or headache. SKIN: Warm, dry and intact. Turgor-normal. Pale pink erythema of right breast , lower half with tenderness right lower quadrant right breast. LYMPHATIC: No palpable lymph nodes/no lymphedema. MUSCULOSKELETAL: Normal joints with no swelling. Muscle tone is normal. LAB REVIEW: 05/04/17 04:30 05/04/17 04:30 ASSESSMENT: 1. Right breast cellulitis 2. Uncontrolled Diabetes Mellitus Type 2 3. Obesity PLAN: 1. Continue IV antibiotics 2. Cool compress to right breast Plan and coordination of the patient's care discussed in the presence of Physical Instructor and nurse. CONDITION: Stable SCRIBED BY: BRI MULLEN Health It Specialist scribed while in presence of service performed by Dr. Espinal/Temi Nye APRN on 05/05/17 ([id number])
[2017-05-05] MEDS: CLEOCIN PO SCH ×3 (09:43→20:02)
--- NOTE | 2017-05-05 10:32 | PN ---
DATE OF SERVICE: 05/02/17 SUBJECTIVE: The patient is hospitalized with right mastitits. The patient's condition seems to have improved. The redness is less, less induration. Ultrasound shows inflammation. i don't think the patient has infiltrating cancer. The patient had fever off and on coming down with it. She is feeling somewhat better. Condition improving. The patient was seen and examined with nurse practitioner. TIME SPENT: More than 30 minutes. Plan and coordination of the patient's care discussed in the presence of nurse. HOLDEN
[2017-05-05] MEDS: VANCOMYCIN 1 GM in SODIUM CHLORIDE 250 ML IV SCH ×2 (12:50→20:01)
[2017-05-05] MEDS: LANTUS SUBCUT SCH (20:01)
[2017-05-06 05:02] LABS: HEMATOCRIT 39.4 % (37.0-47.0); HEMOGLOBIN 13.4 g/dl (12.0-16.0); MEAN CORPUSCULAR VOLUME 91.2 fl (81.0-99.0); PLATELET COUNT 239 10^3/uL (140-440); RED BLOOD COUNT 4.32 10^6/ul (4.20-5.40); WHITE BLOOD COUNT 8.38 K/ul (4.6-10.2)
[2017-05-06 05:22] LABS: ALBUMIN 2.1 g/dL (3.4-5.0); ALBUMIN/GLOBULIN RATIO 0.58; ANION GAP 10.4; BILIRUBIN,TOTAL 0.35 mg/dL (0.00-1.20); BUN/CREATININE RATIO 10.14; CALCIUM 8.8 mg/dL (8.2-10.2); CREATININE 0.69 mg/dL (0.60-1.30); POTASSIUM 3.4 mmol/L (3.5-5.10); TOTAL PROTEIN 5.7 g/dL (6.4-8.2)
[2017-05-06 05:41] LABS: ANISOCYTOSIS NOT PRESENT (NOT PRESENT)
[2017-05-06] MEDS: CLEOCIN PO SCH ×2 (06:06→13:06)
[2017-05-06] MEDS: SYNTHROID PO SCH (06:07)
[2017-05-06] MEDS: TORADOL IVP SCH ×3 (06:17→20:26)
[2017-05-06] MEDS: HUMULIN R SUBCUT PRN ×4 (06:17→21:29)
[2017-05-06] MEDS: HUMALOG MIX 75-25 SUBCUT SCH (07:42)
[2017-05-06] MEDS: ROCEPHIN 1 GM in SODIUM CHLORIDE 50 ML IV SCH (08:24)
[2017-05-06] MEDS: ESTRADIOL PO SCH (08:25)
[2017-05-06] MEDS: MEVACOR PO SCH (08:25)
[2017-05-06] MEDS: FERROUS SULFATE PO SCH ×2 (08:25→20:26)
[2017-05-06] MEDS: NORVASC PO SCH (08:25)
[2017-05-06] MEDS: HYDROCHLOROTHIAZIDE PO SCH (08:25)
[2017-05-06] MEDS: LOTENSIN PO SCH (08:26)
[2017-05-06] MEDS: VANCOMYCIN 1 GM in SODIUM CHLORIDE 250 ML IV SCH (10:04)
--- NOTE | 2017-05-06 10:23 | PN ---
DATE OF SERVICE: 05/03/17 SUBJECTIVE: 56 year old white female hospitalized with cellulitis of the right breast. The patient's condition has improved. She has been afebrile for past 24 hours. Her WBC was to 11,000 and she is feeling better. The soreness is much less. REVIEW OF SYSTEMS: CONSTITUTIONAL: No night sweats. No fatigue, malaise, lethargy. No fever or chills. is in the room. HEENT: Eyes: No visual changes. No eye pain. No eye discharge. ENT: No runny nose. No epistaxis. No sinus pain. No sore throat. No odynophagia. No congestion. RESPIRATORY: No cough, no congestion. No hemoptysis. No shortness of breath. CARDIOVASCULAR: No angina symptoms. No CHF symptoms. No atypical chest pain for CAD. No palpitations. No orthopnea. GASTROINTESTINAL: No abdominal pain. No nausea or vomiting. No diarrhea or constipation. No hematemesis. No hematochezia. Appetite has improved. She says that she is feeling better. GENITOURINARY: No urgency. No frequency. No dysuria. No hematuria. No obstructive symptoms. No discharge. No pain. No significant abnormal bleeding. MUSCULOSKELETAL: No musculoskeletal pain; no joint swelling. Sore right breast which is much less than before. NEUROLOGICAL: No headache. No neck pain. No syncope. No seizures. No dizziness. PSYCHIATRIC: Not anxious. No depression. No suicidal thoughts. No homicidal thoughts. SKIN: No rash. No lesions. No wounds. ENDOCRINE: No unexplained weight loss. No weight gain. HEMATOLOGIC/LYMPHATIC: No anemia. No purpura. No petechiae. No prolonged or excessive bleeding. No palpable lymph nodes. PHYSICAL EXAMINATION: GENERAL: The patient is VITAL SIGNS: Temperature 97.6, pulse 60, respiratory rate 18, blood pressure 127/68 and pulse ox 92%. HEENT: Head normocephalic, atraumatic. Eyes: Extraocular muscles are intact. Pupils are equal, round and reactive to light and accommodation. Ears: No lesions. Nose appeared normal. Throat: No exudate or erythema. NECK: Supple. No JVD, no carotid bruit. No lymphadenopathy or thyromegaly. LUNGS: Decreased breath sounds but clear to auscultation. Percussion note normal. Chest symmetrical. HEART: S1, S2, no S3. No murmurs. No cyanosis or clubbing. No ascites. Pulses: Dorsalis pedis and posterior tibial pulses +1 to +2 both sides. ABDOMEN: Soft. Nontender. Bowel sounds active. No CVA tenderness. No mass felt. EXTREMITIES: No edema. Full range of motion of all extremities, equal. NEUROLOGIC: No focal deficit. Cranial nerves II through XII are grossly intact. No headache, no double vision or headache. SKIN: Not dry. Intact. Turgor - normal. LYMPHATIC: No palpable lymph nodes/no lymphedema. MUSCULOSKELETAL: Normal joints with no swelling. Muscle tone is normal. LABS: Hgb 14, hct 43, WBC 11,600 normal differential, creatinine 0.8, BUN 25, potassium 4.1 ASSESSMENT: 1. Acute mastitis which seems to be resolving PLAN: 1. Continue antibiotics Rocephin and Vancomycin CONDITION: Stable TIME SPENT: More than 30 minutes. Plan and coordination of the patient's care discussed in the presence of nurse. HOLDEN
--- NOTE | 2017-05-06 11:08 | PCM.PROG ---
Attending Provider: ATTENDING PROVIDER: Dr. ROMA HUGHES This patient is seen with Temi Nye, Nurse Practitioner. DATE OF SERVICE: 05/06/17 SUBJECTIVE: This 56 year old WHITE/ F was hospitalized 04/30/17. The patient is lying in bed, alert. No fever the past 24 hours. Redness has significantly improved of breast however tenderness has not. REVIEW OF SYSTEMS: CONSTITUTIONAL: No night sweats. No fatigue, malaise, lethargy. No fever or chills. HEENT: Eyes: No visual changes. No eye pain. No eye discharge. ENT: No runny nose. No epistaxis. No sinus pain. No odynophagia. No congestion. RESPIRATORY: No cough, no congestion. No hemoptysis. No shortness of breath. CARDIOVASCULAR: No angina symptoms. No CHF symptoms. No atypical chest pain for CAD. No palpitations. No orthopnea.. GASTROINTESTINAL: No abdominal pain. No nausea or vomiting. No diarrhea or constipation. No hematemesis. No hematochezia. GENITOURINARY: No urgency. No frequency. No dysuria. No hematuria. No obstructive symptoms. No discharge. No pain. No significant abnormal bleeding. MUSCULOSKELETAL: Right breast pain. NEUROLOGICAL: Awake, alert, oriented to time, place and person. No headache. No neck pain. No syncope. No seizures. No dizziness. PSYCHIATRIC: Not anxious. No depression. No suicidal thoughts. No homicidal thoughts. SKIN: No rash. No lesions. No wounds. ENDOCRINE: No unexplained weight loss. No weight gain. HEMATOLOGIC/LYMPHATIC: No anemia. No purpura. No petechiae. No prolonged or excessive bleeding. No palpable lymph nodes. PHYSICAL EXAMINATION: GENERAL: The patient is awake, alert and oriented, lying in bed in no distress. VITAL SIGNS: Temperature 97.5 F, Pulse 61, Respiratory Rate 20, BP 122/72, Pulse Ox 98% HEENT: Head normocephalic, atraumatic. Eyes: Extraocular muscles are intact. Pupils are equal, round and reactive to light and accommodation. Ears: No lesions. Nose appeared normal. Throat: No exudate or erythema. NECK: Supple. No JVD, no carotid bruit. No lymphadenopathy or thyromegaly. LUNGS: Clear to auscultation. Percussion note normal. Chest symmetrical. BREASTS: Right breast with entire right lower quadrant induration approximately 2" x 3"; tender with minimal erythema that has improved. HEART: S1, S2, no S3. No murmurs. No cyanosis or clubbing. No ascites. Pulses: Dorsalis pedis and posterior tibial pulses +1 to +2 both sides. ABDOMEN: Soft. Non-tender. Bowel sounds active. No CVA tenderness. No mass felt. EXTREMITIES: No edema. Full range of motion of all extremities, equal. NEUROLOGIC: No focal deficit. Cranial nerves II through XII are grossly intact. No headache, no double vision or headache. SKIN: Not dry. Intact. Turgor-normal. LYMPHATIC: No palpable lymph nodes/no lymphedema. MUSCULOSKELETAL: Normal joints with no swelling. Muscle tone is normal. LAB REVIEW: 05/06/17 04:30 05/06/17 04:30 05/06/17 04:30: Sodium 141, Potassium 3.4 L, Chloride 103, Carbon Dioxide 31, Anion Gap 10.4, BUN 7, Creatinine 0.69, Estimated GFR (MDRD) 87.00, BUN/ Creatinine Ratio 10.14, Glucose 244 H, Calcium 8.8, Total Bilirubin 0.35, AST 25 , ALT 26, Alkaline Phosphatase 109 H, Total Protein 5.7 L, Albumin 2.1 L, Globulin 3.6, Albumin/Globulin Ratio 0.58 05/06/17 04:30: WBC 8.38, RBC 4.32, Hgb 13.4, Hct 39.4, MCV 91.2, MCH 31.0, MCHC 34.0, RDW Coeff of Brianne 12.6, Plt Count 239, Neutrophils % (Manual) 50.0, Band Neutrophils % 6.0 H, Lymphocytes % (Manual) 29.0, Monocytes % (Manual) 10.0 , Eosinophils % (Manual) 2.0, Basophils % (Manual) 2.0 H, Metamyelocytes % 1.0, Anisocytosis Not present 05/05/17 08:00: Vancomycin Trough 11.08 ASSESSMENT: 1. Right breast cellulitis with worsening induration 2. Uncontrolled Diabetes Mellitus Type 2 3. Obesity PLAN: 1. Dr. Ramires to see and consult 2. Warm compresses to right breast q.i.d. 3. Repeat ultrasound of breast Plan and coordination of the patient's care discussed in the presence of Stationary Engineer and nurse. CONDITION: Stable SCRIBED BY: BRI MULLEN In Flight Refueling Manager scribed while in presence of service performed by Dr. Hughes/Temi Nye APRN on 05/06/17 ([id number])
[2017-05-06] MEDS: SODIUM CHLORIDE 1,000 ML IV SCH ×2 (12:15→13:50)
--- NOTE | 2017-05-06 14:36 | PN ---
DATE OF SERVICE: 05/04/17 SUBJECTIVE: 56 year old white female hospitalized with acute mastitis. The patient's condition it improved and she feeling a lot better. The soreness on the right breast is much less. REVIEW OF SYSTEMS: CONSTITUTIONAL: No night sweats. No fatigue, malaise, lethargy. No fever or chills. HEENT: Eyes: No visual changes. No eye pain. No eye discharge. ENT: No runny nose. No epistaxis. No sinus pain. No sore throat. No odynophagia. No congestion. RESPIRATORY: No cough, no congestion. No hemoptysis. No shortness of breath. CARDIOVASCULAR: No angina symptoms. No CHF symptoms. No atypical chest pain for CAD. No palpitations. No orthopnea. No PND. GASTROINTESTINAL: No abdominal pain. No nausea or vomiting. No diarrhea or constipation. No hematemesis. No hematochezia. GENITOURINARY: No urgency. No frequency. No dysuria. No hematuria. No obstructive symptoms. No discharge. No pain. No significant abnormal bleeding. MUSCULOSKELETAL: No musculoskeletal pain; no joint swelling. Soreness of the right breast much less. NEUROLOGICAL: No headache. No neck pain. No syncope. No seizures. No dizziness. PSYCHIATRIC: Not anxious. No depression. No suicidal thoughts. No homicidal thoughts. SKIN: No rash. No lesions. No wounds. ENDOCRINE: No unexplained weight loss. No weight gain. HEMATOLOGIC/LYMPHATIC: No anemia. No purpura. No petechiae. No prolonged or excessive bleeding. No palpable lymph nodes. PHYSICAL EXAMINATION: GENERAL: The patient is oriented to time, place and person. VITAL SIGNS: Temperature 97.7, pulse 70, respiratory rate 18, blood pressure 133/70 and pulse ox 95%. HEENT: Head normocephalic, atraumatic. Eyes: Extraocular muscles are intact. Pupils are equal, round and reactive to light and accommodation. Ears: No lesions. Nose appeared normal. Throat: No exudate or erythema. NECK: Supple. No JVD, no carotid bruit. No lymphadenopathy or thyromegaly. LUNGS: Clear to auscultation. Percussion note normal. Chest symmetrical. HEART: S1, S2, no S3. No murmurs. No cyanosis or clubbing. No ascites. Pulses: Dorsalis pedis and posterior tibial pulses +1 to +2 both sides. ABDOMEN: Soft. Nontender. Bowel sounds active. No CVA tenderness. No mass felt. EXTREMITIES: No edema. Full range of motion of all extremities, equal. BREAST: Right breast seems to be practically free of redness except for the lower part out of quadrant small area which is somewhat indurated fluctuant mass noted. No puckering of the skin noted. NEUROLOGIC: No focal deficit. Cranial nerves II through XII are grossly intact. No headache, no double vision or headache. SKIN: Not dry. Intact. Turgor - normal. LYMPHATIC: No palpable lymph nodes/no lymphedema. MUSCULOSKELETAL: Normal joints with no swelling. Muscle tone is normal. LABS: Hgb 13.5, hct 40,WBC 9,400 normal differential, creatinine 0.7, BUN 19, glucose 249 ASSESSMENT: 1. Acute mastitis, seems to be resolving very well 2. Diabetes mellitus 3. Obesity, morbid 4. Hypertension 5. Dyslipidemia PLAN: 1. Discussed weight loss diet 2. A1c goal 6-7 discussed. 3. Complication of diabetes with retinal retinopathy and nephropathy discussed with the patient. 4. Continue IV antibiotic 5. The patient may eventually need mammogram following this 6. The patient has no evidence of inflammatory breast cancer TIME SPENT: More than 30 minutes. Plan and coordination of the patient's care discussed in the presence of nurse. HOLDEN
[2017-05-06] MEDS: SODIUM CHLORIDE IV SCH (20:01)
[2017-05-06] MEDS: GENTAMICIN SULFATE IV SCH (20:01)
[2017-05-06] MEDS ORDERED: VANCOMYCIN 1,000 MG in SODIUM CHLORIDE 200 ML IV SCH (21:00)
[2017-05-06] MEDS: ZYVOX 600 MG in PREMIX 300 ML WATER 1 BAG IV SCH (21:29)
[2017-05-06] MEDS: LANTUS SUBCUT SCH (21:31)
[2017-05-07] MEDS: TORADOL IVP SCH ×2 (04:12→12:52)
[2017-05-07] MEDS: GENTAMICIN SULFATE IV SCH ×2 (04:12→12:53)
[2017-05-07] MEDS: SODIUM CHLORIDE IV SCH ×2 (04:12→12:53)
[2017-05-07 05:13] LABS: HEMATOCRIT 39.1 % (37.0-47.0); HEMOGLOBIN 13.1 g/dl (12.0-16.0); MEAN CORPUSCULAR HEMOGLOBIN 30.6 pg (27.0-31.0); MEAN CORPUSCULAR HGB CONC 33.5 (31.8-35.4); MEAN CORPUSCULAR VOLUME 91.4 fl (81.0-99.0); PLATELET COUNT 276 10^3/uL (140-440); RED BLOOD COUNT 4.28 10^6/ul (4.20-5.40); WHITE BLOOD COUNT 9.09 K/ul (4.6-10.2)
[2017-05-07] MEDS: SODIUM CHLORIDE 1,000 ML IV SCH ×2 (05:27→12:53)
[2017-05-07] MEDS: HUMULIN R SUBCUT PRN ×4 (05:28→20:40)
[2017-05-07] MEDS: SYNTHROID PO SCH (05:29)
[2017-05-07 05:38] LABS: ALBUMIN 2.2 g/dL (3.4-5.0); ALBUMIN/GLOBULIN RATIO 0.59; ANION GAP 12.3; BILIRUBIN,TOTAL 0.35 mg/dL (0.00-1.20); CALCIUM 8.9 mg/dL (8.2-10.2); CREATININE 0.7 mg/dL (0.60-1.30); POTASSIUM 3.3 mmol/L (3.5-5.10); TOTAL PROTEIN 5.9 g/dL (6.4-8.2)
[2017-05-07 05:39] LABS: BUN/CREATININE RATIO 11.42
[2017-05-07 05:40] LABS: ANISOCYTOSIS NOT PRESENT (NOT PRESENT)
--- NOTE | 2017-05-07 08:32 | PN ---
DATE OF SERVICE: 05/05/17 SUBJECTIVE: 56 year old white female hospitalized with cellulitis right breast which seems to be improving to some extent, now it is stand still. She was running fever yesterday. The patient has indurated right lower part of the breast. The patient was seen and examined with the Nurse Practitioner. The patient is going to be referred to Dr. Ramires. PLAN: 1. Continue Antibiotics Rocephin and Vancomycin 2. May need an IND TIME SPENT: More than 30 minutes. Plan and coordination of the patient's care discussed in the presence of nurse. HOLDEN
[2017-05-07] MEDS: LEVEMIR SUBCUT SCH ×2 (08:58→20:41)
[2017-05-07] MEDS: ZYVOX 600 MG in PREMIX 300 ML WATER 1 BAG IV SCH ×2 (08:58→21:20)
[2017-05-07] MEDS: NORVASC PO SCH (08:59)
[2017-05-07] MEDS: LOTENSIN PO SCH (08:59)
[2017-05-07] MEDS: ESTRADIOL PO SCH (09:00)
[2017-05-07] MEDS: K-DUR PO SCH ×2 (09:00→17:12)
[2017-05-07] MEDS: HYDROCHLOROTHIAZIDE PO SCH (09:00)
[2017-05-07] MEDS: MEVACOR PO SCH (09:01)
[2017-05-07] MEDS: FERROUS SULFATE PO SCH ×2 (09:01→20:40)
--- NOTE | 2017-05-07 10:20 | PCM.PROG ---
Attending Provider: ATTENDING PROVIDER: Dr. ROMA ESPINAL DATE OF SERVICE: 05/07/17 SUBJECTIVE: This 56 year old WHITE/ F was hospitalized 04/30/17. The patient was admitted with right mastitis. The patient externally on PE has a lot of improvement with redness. Induration of the lower quadrant right breast persists. The patient was seen by Dr. Ramires and he changed the antibiotics to Linezolid and Gentamicin Sulfate. The patient this morning is afebrile. REVIEW OF SYSTEMS: CONSTITUTIONAL: No night sweats. No fatigue, malaise, lethargy. No fever or chills. HEENT: Eyes: No visual changes. No eye pain. No eye discharge. ENT: No runny nose. No epistaxis. No sinus pain. No odynophagia. No congestion. RESPIRATORY: No cough, no congestion. No hemoptysis. No shortness of breath. BREASTS: Right breast has induration of the lower quadrant. Redness is improved. CARDIOVASCULAR: No angina symptoms. No CHF symptoms. No atypical chest pain for CAD. No palpitations. No orthopnea.. GASTROINTESTINAL: No abdominal pain. No nausea or vomiting. No diarrhea or constipation. No hematemesis. No hematochezia. GENITOURINARY: No urgency. No frequency. No dysuria. No hematuria. No obstructive symptoms. No discharge. No pain. No significant abnormal bleeding. MUSCULOSKELETAL: No musculoskeletal pain; no joint swelling. NEUROLOGICAL: Awake, alert, oriented to time, place and person. No headache. No neck pain. No syncope. No seizures. No dizziness. PSYCHIATRIC: Not anxious. No depression. No suicidal thoughts. No homicidal thoughts. SKIN: No rash. No lesions. No wounds. ENDOCRINE: No unexplained weight loss. No weight gain. HEMATOLOGIC/LYMPHATIC: No anemia. No purpura. No petechiae. No prolonged or excessive bleeding. No palpable lymph nodes. PHYSICAL EXAMINATION: GENERAL: The patient is awake, alert and oriented, lying in bed in no distress. VITAL SIGNS: Temperature 97.7 F, Pulse 72, Respiratory Rate 16, BP 137/67, Pulse Ox 97% HEENT: Head normocephalic, atraumatic. Eyes: Extraocular muscles are intact. Pupils are equal, round and reactive to light and accommodation. Ears: No lesions. Nose appeared normal. Throat: No exudate or erythema. NECK: Supple. No JVD, no carotid bruit. No lymphadenopathy or thyromegaly. LUNGS: Clear to auscultation. Percussion note normal. Chest symmetrical. BREASTS: Induration of right breast as described above. HEART: S1, S2, no S3. No murmurs. No cyanosis or clubbing. No ascites. Pulses: Dorsalis pedis and posterior tibial pulses +1 to +2 both sides. ABDOMEN: Soft. Non-tender. Bowel sounds active. No CVA tenderness. No mass felt. EXTREMITIES: No edema. Full range of motion of all extremities, equal. NEUROLOGIC: No focal deficit. Cranial nerves II through XII are grossly intact. No headache, no double vision or headache. SKIN: Not dry. Intact. Turgor-normal. LYMPHATIC: No palpable lymph nodes/no lymphedema. MUSCULOSKELETAL: Normal joints with no swelling. Muscle tone is normal. LAB REVIEW: 05/07/17 04:30 05/07/17 04:30 05/07/17 04:30: Sodium 140, Potassium 3.3 L, Chloride 102, Carbon Dioxide 29, Anion Gap 12.3, BUN 8, Creatinine 0.70, Estimated GFR (MDRD) 86.00, BUN/ Creatinine Ratio 11.42, Glucose 273 H, Calcium 8.9, Total Bilirubin 0.35, AST 20 , ALT 26, Alkaline Phosphatase 102 H, Total Protein 5.9 L, Albumin 2.2 L, Globulin 3.7, Albumin/Globulin Ratio 0.59 05/07/17 04:30: WBC 9.09, RBC 4.28, Hgb 13.1, Hct 39.1, MCV 91.4, MCH 30.6, MCHC 33.5, RDW Coeff of Brianne 12.6, Plt Count 276, Neutrophils % (Manual) 45.0, Lymphocytes % (Manual) 36.0, Monocytes % (Manual) 10.0, Eosinophils % (Manual) 3.0, Basophils % (Manual) 2.0 H, Metamyelocytes % 4.0 H, Anisocytosis Not present ASSESSMENT: 1. RIGHT BREAST INDURATION; REDNESS HAS IMPROVED. 2. UNCONTROLLED DIABETES MELLITUS TYPE 2 3. OBESITY PLAN: 1. Sliding scale with coverage continued 2. D/C Humalog 3. Levemir 30 mg twice a day and sliding scale Plan and coordination of the patient's care discussed in the presence of Investment Executive and nurse. CONDITION: Stable SCRIBED BY: BRI MULLEN Street Sweeper Operator scribed while in presence of service performed by Dr. ROMA ESPINAL on 05/07/17 ([id number])
[2017-05-07] MEDS: HUMALOG MIX 75-25 SUBCUT SCH (12:37)
[2017-05-07] MEDS: GENTAMICIN SULFATE 70 MG in SODIUM CHLORIDE 50 ML IV SCH (20:40)
[2017-05-07] MEDS ORDERED: TORADOL IVP ONE (21:00)
[2017-05-08] MEDS: GENTAMICIN SULFATE 70 MG in SODIUM CHLORIDE 50 ML IV SCH ×2 (04:09→12:50)
[2017-05-08 04:54] LABS: BASOPHILS # (AUTO) 0.1 K/uL (0-0.2); BASOPHILS % (AUTO) 1.4 % (0.0-3.0); EOSINOPHILS # (AUTO) 0.5 K/ul (0.0-0.7); EOSINOPHILS % (AUTO) 5.5 % (0.0-7.0); HEMATOCRIT 39.7 % (37.0-47.0); HEMOGLOBIN 13.6 g/dl (12.0-16.0); IMMATURE GRANULOCYTE % (AUTO) 6.9 % (0.0-5.0); MEAN CORPUSCULAR HEMOGLOBIN 31.3 pg (27.0-31.0); MEAN CORPUSCULAR HGB CONC 34.3 (31.8-35.4); MEAN CORPUSCULAR VOLUME 91.3 fl (81.0-99.0); MONOCYTES % (AUTO) 11.3 (0-10); NEUTROPHILS # (AUTO) 3.6 K/ul (2.0-6.9); NEUTROPHILS % (AUTO) 40.9; PLATELET COUNT 253 10^3/uL (140-440); RED BLOOD COUNT 4.35 10^6/ul (4.20-5.40); WHITE BLOOD COUNT 8.68 K/ul (4.6-10.2)
[2017-05-08 05:13] LABS: ALBUMIN 2.3 g/dL (3.4-5.0); ALBUMIN/GLOBULIN RATIO 0.59; ANION GAP 14.1; BILIRUBIN,TOTAL 0.34 mg/dL (0.00-1.20); BUN/CREATININE RATIO 13.51; CALCIUM 9.3 mg/dL (8.2-10.2); CREATININE 0.74 mg/dL (0.60-1.30); POTASSIUM 4.1 mmol/L (3.5-5.10); TOTAL PROTEIN 6.2 g/dL (6.4-8.2)
[2017-05-08] MEDS: SYNTHROID PO SCH (05:32)
[2017-05-08] MEDS: HUMULIN R SUBCUT PRN ×3 (05:32→21:13)
[2017-05-08] MEDS ORDERED: DIFLUCAN PO STA (08:29)
[2017-05-08] MEDS: TORADOL IVP SCH ×3 (08:33→21:15)
[2017-05-08] MEDS: ZYVOX 600 MG in PREMIX 300 ML WATER 1 BAG IV SCH ×2 (08:34→22:35)
--- NOTE | 2017-05-08 10:27 | PCM.PROG ---
Attending Provider: ATTENDING PROVIDER: Dr. ROMA HUGHES This patient is seen with Temi Nye, Nurse Practitioner. DATE OF SERVICE: 05/08/17 SUBJECTIVE: This 56 year old WHITE/ F was hospitalized 04/30/17. The patient is alert, lying in bed. The patient was seen by Dr. Ramires yesterday. Antibiotics were changed to Gentamicin and Zyvox. The patient is still afebrile. REVIEW OF SYSTEMS: CONSTITUTIONAL: No night sweats. No fatigue, malaise, lethargy. No fever or chills. HEENT: Eyes: No visual changes. No eye pain. No eye discharge. ENT: No runny nose. No epistaxis. No sinus pain. No odynophagia. No congestion. RESPIRATORY: No cough, no congestion. No hemoptysis. No shortness of breath. BREASTS: Right breast pain and swelling. CARDIOVASCULAR: No angina symptoms. No CHF symptoms. No atypical chest pain for CAD. No palpitations. No orthopnea.. GASTROINTESTINAL: No abdominal pain. No nausea or vomiting. No diarrhea or constipation. No hematemesis. No hematochezia. GENITOURINARY: No urgency. No frequency. No dysuria. No hematuria. No obstructive symptoms. No discharge. No pain. No significant abnormal bleeding. MUSCULOSKELETAL: No musculoskeletal pain; no joint swelling. NEUROLOGICAL: Awake, alert, oriented to time, place and person. No headache. No neck pain. No syncope. No seizures. No dizziness. PSYCHIATRIC: Not anxious. No depression. No suicidal thoughts. No homicidal thoughts. SKIN: No lesions. No wounds. Erythematous area of right breast. ENDOCRINE: No unexplained weight loss. No weight gain. HEMATOLOGIC/LYMPHATIC: No anemia. No purpura. No petechiae. No prolonged or excessive bleeding. No palpable lymph nodes. PHYSICAL EXAMINATION: GENERAL: The patient is awake, alert and oriented, lying/sitting in bed in no distress. VITAL SIGNS: Temperature 97.9 F, Pulse 75, Respiratory Rate 16, BP 149/72, Pulse Ox 97% HEENT: Head normocephalic, atraumatic. Eyes: Extraocular muscles are intact. Pupils are equal, round and reactive to light and accommodation. Ears: No lesions. Nose appeared normal. Throat: No exudate or erythema. NECK: Supple. No JVD, no carotid bruit. No lymphadenopathy or thyromegaly. LUNGS: Clear to auscultation. Percussion note normal. Chest symmetrical. HEART: S1, S2, no S3. No murmurs. No cyanosis or clubbing. No ascites. Pulses: Dorsalis pedis and posterior tibial pulses +1 to +2 both sides. ABDOMEN: Soft. Non-tender. Bowel sounds active. No CVA tenderness. No mass felt. EXTREMITIES: No edema. Full range of motion of all extremities, equal. NEUROLOGIC: No focal deficit. Cranial nerves II through XII are grossly intact. No headache, no double vision or headache. SKIN: Right breast has pale erythema with area of inudration approximately the size of a baseball extending to past nipple line, tender and firm. LYMPHATIC: No palpable lymph nodes/no lymphedema. MUSCULOSKELETAL: Normal joints with no swelling. Muscle tone is normal. LAB REVIEW: 05/08/17 04:45 05/08/17 04:45 05/08/17 04:45: Sodium 140, Potassium 4.1, Chloride 104, Carbon Dioxide 26, Anion Gap 14.1, BUN 10, Creatinine 0.74, Estimated GFR (MDRD) 81.00, BUN/ Creatinine Ratio 13.51, Glucose 239 H, Calcium 9.3, Total Bilirubin 0.34, AST 21 , ALT 27, Alkaline Phosphatase 129 H D, Total Protein 6.2 L, Albumin 2.3 L, Globulin 3.9, Albumin/Globulin Ratio 0.59 05/08/17 04:45: WBC 8.68, RBC 4.35, Hgb 13.6, Hct 39.7, MCV 91.3, MCH 31.3 H, MCHC 34.3, RDW Coeff of Brianne 12.6, Plt Count 253, Immature Gran % (Auto) 6.9 H, Neut % (Auto) 40.9, Lymph % (Auto) 34.0, [place] % (Auto) 11.3 H, Eos % (Auto) 5.5 , Baso % (Auto) 1.4, Immature Gran # (Auto) 0.6, Neut # 3.6, Lymph # 3.0, [place] # 1.0, Eos # 0.5, Baso # 0.1 05/07/17 18:25: Procalcitonin 0.18 ASSESSMENT: 1. RIGHT BREAST INDURATION; REDNESS HAS IMPROVED. 2. UNCONTROLLED DIABETES MELLITUS TYPE 2 3. OBESITY PLAN: 1. Toradol 30 [address] q[address]hr 2. CT scan right breast with contrast 3. Increase Levemir 35 twice a day 4. Continue warm compresses to right breast Plan and coordination of the patient's care discussed in the presence of Engagement Executive and nurse. CONDITION: Stable SCRIBED BY: BRI MULLEN Car Customizer scribed while in presence of service performed by Dr. Hughes/Temi Nye APRN on 05/08/17 ([id number])
[2017-05-08] MEDS: ESTRADIOL PO SCH (11:27)
[2017-05-08] MEDS: LOTENSIN PO SCH (11:27)
[2017-05-08] MEDS: MEVACOR PO SCH (11:28)
[2017-05-08] MEDS: FERROUS SULFATE PO SCH ×2 (11:28→21:17)
[2017-05-08] MEDS: NORVASC PO SCH (11:28)
[2017-05-08] MEDS: K-DUR PO SCH ×2 (11:29→16:35)
[2017-05-08] MEDS: HYDROCHLOROTHIAZIDE PO SCH (11:29)
[2017-05-08] MEDS: LEVEMIR SUBCUT SCH ×3 (11:29→21:13)
--- NOTE | 2017-05-08 11:29 | CT ---
EXAM: CT chest with contrast HISTORY: Right breast cellulitis which has been painful for 1 week COMPARISON: CT chest 04/30/2017 and ultrasound 05/02/2017 TECHNIQUE: Serial axial images of the chest were obtained after 75 ml of Omnipaque IV contrast was a dministered. These were obtained from the lung apices to the upper abdomen. FINDINGS: The thyroid is unchanged. Visualized vessels are unremarkable. There is no dissection, a neurysm or stenosis. Trace pericardial fluid is unchanged. The heart is normal in size without perica rdial effusion. There are nonpathologically enlarged mediastinal and hilar lymph nodes. There is no pneumothorax or pleural effusion. Benign right azygos lobe is present. There is no acut e consolidation or mass. There is calcified granuloma in the left lower lobe. There is no abnormal ground-glass. The airways are patent. Soft tissues in the upper abdomen demonstrate prior cholecystectomy. Spleen is unremarkable. Right breast demonstrates skin thickening with no significant change and underlying parenchyma. Ther e is no focal fluid collection identified. IMPRESSION: 1. Mild skin thickening of the right breast with no underlying fluid collection. Findings may repres ent cellulitis versus underlying inflammatory breast cancer. No focal fluid collection is identified . Diagnostic mammogram is recommended. 2. No additional abnormality is identified with changes of prior cholecystectomy.
[2017-05-08] MEDS: SODIUM CHLORIDE IV SCH (21:17)
[2017-05-08] MEDS: GENTAMICIN SULFATE IV SCH (21:17)
[2017-05-09 05:02] LABS: BASOPHILS # (AUTO) 0.1 K/uL (0-0.2); BASOPHILS % (AUTO) 1.2 % (0.0-3.0); EOSINOPHILS # (AUTO) 0.5 K/ul (0.0-0.7); EOSINOPHILS % (AUTO) 5.3 % (0.0-7.0); HEMATOCRIT 41.6 % (37.0-47.0); IMMATURE GRANULOCYTE % (AUTO) 5.7 % (0.0-5.0); LYMPHOCYTES # (AUTO) 2.8 K/uL (0.60-3.4); LYMPHOCYTES % (AUTO) 31.3 (10.0-50.0); MEAN CORPUSCULAR HEMOGLOBIN 30.7 pg (27.0-31.0); MEAN CORPUSCULAR HGB CONC 33.7 (31.8-35.4); MEAN CORPUSCULAR VOLUME 91.2 fl (81.0-99.0); MONOCYTES % (AUTO) 10.7 (0-10); NEUTROPHILS # (AUTO) 4.1 K/ul (2.0-6.9); NEUTROPHILS % (AUTO) 45.8; PLATELET COUNT 286 10^3/uL (140-440); RED BLOOD COUNT 4.56 10^6/ul (4.20-5.40); WHITE BLOOD COUNT 9.05 K/ul (4.6-10.2)
[2017-05-09 05:20] LABS: ALBUMIN 2.3 g/dL (3.4-5.0); ALBUMIN/GLOBULIN RATIO 0.53; ANION GAP 12.1; BILIRUBIN,TOTAL 0.38 mg/dL (0.00-1.20); BUN/CREATININE RATIO 14.86; CALCIUM 9.5 mg/dL (8.2-10.2); CREATININE 0.74 mg/dL (0.60-1.30); POTASSIUM 4.1 mmol/L (3.5-5.10); TOTAL PROTEIN 6.6 g/dL (6.4-8.2)
[2017-05-09] MEDS: SYNTHROID PO SCH (05:51)
[2017-05-09] MEDS: TORADOL IVP SCH ×2 (05:52→14:08)
[2017-05-09] MEDS: HUMULIN R SUBCUT PRN ×2 (05:52→11:10)
[2017-05-09] MEDS: LEVEMIR SUBCUT SCH (08:31)
[2017-05-09] MEDS: K-DUR PO SCH (08:32)
[2017-05-09] MEDS: MEVACOR PO SCH (08:32)
[2017-05-09] MEDS: ESTRADIOL PO SCH (08:32)
[2017-05-09] MEDS: HYDROCHLOROTHIAZIDE PO SCH (08:32)
[2017-05-09] MEDS: LOTENSIN PO SCH (08:32)
[2017-05-09] MEDS: NORVASC PO SCH (08:33)
[2017-05-09] MEDS: ZYVOX 600 MG in PREMIX 300 ML WATER 1 BAG IV SCH (08:33)
[2017-05-09] MEDS: FERROUS SULFATE PO SCH (08:33)
--- NOTE | 2017-05-09 10:53 | PCM.PROG ---
Attending Provider: ATTENDING PROVIDER: Dr. ROMA HUGHES This patient is seen with Temi Nye, Nurse Practitioner. DATE OF SERVICE: 05/09/17 SUBJECTIVE: This 56 year old WHITE/ F was hospitalized 04/30/17. The patient is lying in bed, alert. Discussed results of CT scan with the patient. There doesn 't appear to be any abscess. She still has firmness and induration approximately the side of a baseball right breast which is tender. No nipple discharge. Red petechial type rash right breast. Discussed possibility of transferring today to Dr. Kendrick. REVIEW OF SYSTEMS: CONSTITUTIONAL: No night sweats. No fatigue, malaise, lethargy. No fever or chills. HEENT: Eyes: No visual changes. No eye pain. No eye discharge. ENT: No runny nose. No epistaxis. No sinus pain. No odynophagia. No congestion. RESPIRATORY: No cough, no congestion. No hemoptysis. No shortness of breath. BREASTS: Right breast pain and swelling. CARDIOVASCULAR: No angina symptoms. No CHF symptoms. No atypical chest pain for CAD. No palpitations. No orthopnea.. GASTROINTESTINAL: No abdominal pain. No nausea or vomiting. No diarrhea or constipation. No hematemesis. No hematochezia. GENITOURINARY: No urgency. No frequency. No dysuria. No hematuria. No obstructive symptoms. No discharge. No pain. No significant abnormal bleeding. MUSCULOSKELETAL: No musculoskeletal pain; no joint swelling. NEUROLOGICAL: Awake, alert, oriented to time, place and person. No headache. No neck pain. No syncope. No seizures. No dizziness. PSYCHIATRIC: Not anxious. No depression. No suicidal thoughts. No homicidal thoughts. SKIN: Red petechial type rash right breast. No lesions. No wounds. ENDOCRINE: No unexplained weight loss. No weight gain. HEMATOLOGIC/LYMPHATIC: No anemia. No purpura. No petechiae. No prolonged or excessive bleeding. No palpable lymph nodes. PHYSICAL EXAMINATION: GENERAL: The patient is awake, alert and oriented, lying in bed in no distress. VITAL SIGNS: Temperature 98.1 F, Pulse 71, Respiratory Rate 18, BP 129/77, Pulse Ox 96% HEENT: Head normocephalic, atraumatic. Eyes: Extraocular muscles are intact. Pupils are equal, round and reactive to light and accommodation. Ears: No lesions. Nose appeared normal. Throat: No exudate or erythema. NECK: Supple. No JVD, no carotid bruit. No lymphadenopathy or thyromegaly. LUNGS: Clear to auscultation. Percussion note normal. Chest symmetrical. HEART: S1, S2, no S3. No murmurs. No cyanosis or clubbing. No ascites. Pulses: Dorsalis pedis and posterior tibial pulses +1 to +2 both sides. ABDOMEN: Soft. Non-tender. Bowel sounds active. No CVA tenderness. No mass felt. EXTREMITIES: No edema. Full range of motion of all extremities, equal. NEUROLOGIC: No focal deficit. Cranial nerves II through XII are grossly intact. No headache, no double vision or headache. SKIN: Right breast swelling, baseball size area of induration extending upper nipple line, flat red rash right upper breast, tender and firm. Right breast pain. LYMPHATIC: No palpable lymph nodes/no lymphedema. MUSCULOSKELETAL: Normal joints with no swelling. Muscle tone is normal. LAB REVIEW: 05/09/17 04:50 05/09/17 04:50 05/09/17 04:50: Sodium 140, Potassium 4.1, Chloride 103, Carbon Dioxide 29, Anion Gap 12.1, BUN 11, Creatinine 0.74, Estimated GFR (MDRD) 81.00, BUN/ Creatinine Ratio 14.86, Glucose 187 H, Calcium 9.5, Total Bilirubin 0.38, AST 23 , ALT 29, Alkaline Phosphatase 108 H, Total Protein 6.6, Albumin 2.3 L, Globulin 4.3, Albumin/Globulin Ratio 0.53 05/09/17 04:50: WBC 9.05, RBC 4.56, Hgb 14.0, Hct 41.6, MCV 91.2, MCH 30.7, MCHC 33.7, RDW Coeff of Brianne 12.6, Plt Count 286, Immature Gran % (Auto) 5.7 H, Neut % (Auto) 45.8, Lymph % (Auto) 31.3, Walker % (Auto) 10.7 H, Eos % (Auto) 5.3 , Baso % (Auto) 1.2, Immature Gran # (Auto) 0.5, Neut # 4.1, Lymph # 2.8, Walker # 1.0, Eos # 0.5, Baso # 0.1 05/07/17 20:30: Gentamicin Trough 0.8 05/07/17 14:00: Gentamicin Peak 3.3 L ASSESSMENT: 1. RIGHT BREAST INDURATION; REDNESS HAS IMPROVED. 2. CT SCAN - CELLULITIS VS UNDERLYING INFLAMMATORY BREAST CANCER 3. UNCONTROLLED DIABETES MELLITUS TYPE 2 4. OBESITY PLAN: 1. Arrange for possible transfer and consult with Dr. Kendrick at [facility] for surgical consult 2. [id number] Plan and coordination of the patient's care discussed in the presence of Brake Tester and nurse. CONDITION: Stable SCRIBED BY: Hu JASSO scribed while in presence of service performed by Dr. Hughes/Temi Nye APRN on 05/09/17 ([id number])
[2017-05-09 11:04] VITALS: BP 140/80; TEMP 97.3
[2017-05-09] MEDS: SODIUM CHLORIDE IV SCH (11:07)
[2017-05-09] MEDS: GENTAMICIN SULFATE IV SCH (11:07)
--- NOTE | 2017-05-09 14:09 | PN ---
DATE OF SERVICE: 05/06/17 SUBJECTIVE: 56 year old white female hospitalized with possible abscess right breast. The patient is seen by Dr. Ramires, senior solutions consultant. Going to change antibiotics to Gentamicin. Vancomycin is another level so Linezolid will be used. The patient was afebrile today with respiratory rate 20 and blood pressure 122/72. CONDITION: Stable The patient was seen and examined with Nurse Practitioner. TIME SPENT: More than 30 minutes. Plan and coordination of the patient's care discussed in the presence of nurse. HOLDEN
--- NOTE | 2017-05-09 14:13 | CM.DICTOOL ---
ADMISSION: 04/30/17 16:14 DISCHARGE: 05/09/17 DATE OF SERVICE: 05/09/17 FINAL DIAGNOSIS CELLULITIS/MASTITIS RIGHT BREAST DM, TYPE 2 HYPOKALEMIA, RESOLVED HYPOTHYROIDISM UMBILICAL HERNIA HYPERTENSION DYSLIPIDEMIA COPD ANEMIA HYSTERECTOMY CHOLECYSTECTOMY FORMER SMOKER LAST VITALS Temp Pulse Resp BP Pulse Ox 97.3 F L 82 16 140/80 96 05/09/17 10:00 05/09/17 10:00 05/09/17 10:00 05/09/17 10:00 05/09/17 10:00 ACTIVE HOME MEDICATIONS Amlodipine Besylate (Norvasc) 5 mg PO DAILY [facility] Last Admin: 05/09/17 08:33 Dose: 5 mg Benazepril HCl (Lotensin) 80 mg PO DAILY [facility] Last Admin: 05/09/17 08:32 Dose: 80 mg Estradiol (Estradiol) 1 mg PO DAILY [facility] Last Admin: 05/09/17 08:32 Dose: 1 mg Ferrous Sulfate (Ferrous Sulfate) 324 mg PO BID [facility] Last Admin: 05/09/17 08:33 Dose: 324 mg Hydrochlorothiazide (Hydrochlorothiazide) 12.5 mg PO DAILY [facility] Last Admin: 05/09/17 08:32 Dose: 12.5 mg Levothyroxine Sodium (Synthroid) 200 mcg PO QDAC [facility] Last Admin: 05/09/17 05:51 Dose: 200 mcg Lovastatin (Mevacor) 40 mg PO DAILY [facility] Last Admin: 05/09/17 08:32 Dose: 40 mg ALLERGIES latex Adverse Reaction (Unverified 04/08/17 13:54) NEW PRESCRIPTIONS: DO NOT TAKE YOUR NOVOLOG MIX 70-30 INSULIN DO NOT TAKE YOUR GLARGINE (LANTUS) INSULIN NEW PRESCRIPTIONS LEVAQUIN 750 MG, TAKE ONE TABLET BY MOUTH DAILY FOR 3 DAYS LEVEMIR 35 UNITS SUBCUT TWICE DAILY NORCO 7.5-325 MG, TAKE ONE TABLET BY MOUTH EVERY 6-8 HOURS IF NEEDED (PRN) FOR PAIN DIFLUCAN 100 MG, TAKE ONE TABLET BY MOUTH DAILY FOR 3 DAYS SMOKING: FORMER SMOKER DISEASE SPECIFIC EDUCATION: MASTITIS HOME MEDICATIONS NEW PRESCRIPTIONS FOLLOW UP REFERRALS LAB REVIEW: 05/09/17 04:50 05/09/17 04:50 05/09/17 04:50: Sodium 140, Potassium 4.1, Chloride 103, Carbon Dioxide 29, Anion Gap 12.1, BUN 11, Creatinine 0.74, Estimated GFR (MDRD) 81.00, BUN/ Creatinine Ratio 14.86, Glucose 187 H, Calcium 9.5, Total Bilirubin 0.38, AST 23 , ALT 29, Alkaline Phosphatase 108 H, Total Protein 6.6, Albumin 2.3 L, Globulin 4.3, Albumin/Globulin Ratio 0.53 05/09/17 04:50: WBC 9.05, RBC 4.56, Hgb 14.0, Hct 41.6, MCV 91.2, MCH 30.7, MCHC 33.7, RDW Coeff of Brianne 12.6, Plt Count 286, Immature Gran % (Auto) 5.7 H, Neut % (Auto) 45.8, Lymph % (Auto) 31.3, [place] % (Auto) 10.7 H, Eos % (Auto) 5.3 , Baso % (Auto) 1.2, Immature Gran # (Auto) 0.5, Neut # 4.1, Lymph # 2.8, [place] # 1.0, Eos # 0.5, Baso # 0.1 05/07/17 20:30: Gentamicin Trough 0.8 PLAN: DISCHARGE HOME TODAY RETURN TO SEE DR. CULVER AT THE [facility] ON 05/15/17 AT 9:30 A.M. KEEP YOUR SCHEDULED APPOINTMENT WITH [facility] [address] [address] [place] [address]# [phone] 05/12/17 AT 10:45 RETURN TO [facility] OUTPATIENT REGISTRATION FOR LABS (CMP) ON 05/11/17 RESUME YOUR HOME MEDICATIONS PER LIST PROVIDED BY THE NURSING STAFF DO NOT TAKE YOUR NOVOLOG MIX 70-30 INSULIN DO NOT TAKE YOUR GLARGINE (LANTUS) INSULIN NEW PRESCRIPTIONS LEVAQUIN 750 MG, TAKE ONE TABLET BY MOUTH DAILY FOR 3 DAYS LEVEMIR 35 UNITS SUBCUT TWICE DAILY NORCO 7.5-325 MG, TAKE ONE TABLET BY MOUTH EVERY 6-8 HOURS IF NEEDED (PRN) FOR PAIN DIFLUCAN 100 MG, TAKE ONE TABLET BY MOUTH DAILY FOR 3 DAYS ACTIVITY NO WORK UNTIL RELEASED BY YOUR PRIMARY CARE PHYSICIAN CONTINUE TO MONITOR YOUR BLOOD SUGARS GET PLENTY OF REST AT HOME. GRADUALLY INCREASE YOUR ACTIVITY LEVEL ACCORDING TO YOUR TOLERATION DIET CONSISTENT CARBS EAT YOGURT SUMMARY THE PATIENT IS ALERT AND ORIENTED X3. SHE CURRENTLY RESIDES AT HOME WITH HER SPOUSE. SHE HAS BEEN INDEPENDENT WITH ADL'S AND HAS REQUIRED NO DME OR HOME SERVICES. SHE DESIRES TO RETURN HOME AT DISCHARGE. HER RIGHT BREAST CONTINUES TO BE INDURATED AND PINK AT THE RIGHT AND LOWER QUADRANTS OF HER BREAST. THE AREA CONTINUES TO BE VERY PAINFUL TO TOUCH. THE PATIENT SAYS SINCE ADMISSION THE AREA IS PERHAPS SLIGHTLY LESS FIRM AND TENDER. HER FEVER HAS SUBSIDED. WHITE COUNTS HAVE RETURNED TO NORMAL. MS. SOUZA IS AGREEABLE FOR THE REFERRAL TO DR. LEA SANCHEZ AND IS AGREEABLE TO FOLLOW UP WITH DR. CULVER. THE HYDRATION AND NUTRITIONAL STATUS IS GOOD. OTHER THAN THE RIGHT BREAST AREA , THE SKIN TURGOR IS INTACT AND WITHOUT DECUBITUS ULCERS. THE PATIENT IS AWARE AND AGREEABLE FOR DISCHARGE HOME TODAY. CURRENT CODE STATUS FULL CODE FRAN MILLER APRN ROMA ESPINAL M.D.
--- NOTE | 2017-05-09 14:49 | PN ---
DATE OF SERVICE: 05/09/17 SUBJECTIVE: Susan Villarreal was admitted with cellulitis of the right breast. The patient has localized induration with some fluid buildup with some evidence of cellulitis. She is afebrile. The patient is going to be referred to Dr. Kendrick as an outpatient. She will be discharged home with medications. She is going to follow up with Dr. Ramires who is her primary care M.D. The patient has already been seen by Dr. Ramires on consultation. The patient was seen and examined with nurse practitioner. TIME SPENT: More than 30 minutes. Plan and coordination of the patient's care discussed in the presence of nurse. HOLDEN
--- NOTE | 2017-05-09 14:58 | PN ---
DATE OF SERVICE: 05/08/17 SUBJECTIVE: 56-year-old white female hospitalized with cellulitis of right breast still indurated area. Will do CT scan. The patient is afebrile. The patient is on Zyvox and Garamycin. Kidney functions are stable. The patient is being followed by surgical consult, Dr. Ramires. The patient is seen and examined with nurse practitioner. CONDITION: Stable. TIME SPENT: More than 30 minutes. Plan and coordination of the patient's care discussed in the presence of nurse. HOLDEN
--- NOTE | 2017-05-12 14:22 | DS ---
DATE OF SERVICE: 05/09/17 FINAL DIAGNOSIS: 1. CELLULITIS/MASTITIS RIGHT BREAST 2. DIABETES MELLITUS TYPE 2 3. HYPOKALEMIA, RESOLVED 4. HYPOTHYROIDISM 5. UMBILICAL HERNIA 6. HYPERTENSION 7. DYSLIPIDEMIA 8. COPD 9. ANEMIA 10. HYSTERECTOMY 11. CHOLECYSTECTOMY 12. FORMER SMOKER DISCHARGE INSTRUCTIONS: Followup appointment: Return to see Dr. Ramires at the [facility] on 05/15/17 at 9:30 a.m. [facility] [address], [address] [place] [address]. #[phone] 05/12/17 at 10:45. Return to [facility] outpatient registration for labs ([facility]) on 05/11/17. MEDICATIONS AT DISCHARGE: Norvasc 5 mg p.o. daily JODY Lotensin 80 mg p.o. daily JODY Estradiol 1 mg p.o. daily JODY Ferrous Sulfate 324 mg p.o. b.i.d. JODY Hydrochlorothiazide 12.5 mg p.o. daily JODY Synthroid 200 mcg p.o. q.d a.c. JODY Mevacor 40 mg p.o. daily JODY DO NOT TAKE NOVOLOG MIX 70-30 INSULIN DO NOT TAKE GLARGINE (LANTUS) INSULIN NEW PRESCRIPTIONS: Levaquin 750 mg take one tablet by mouth daily for 3 days Levemir 35 units subcut twice daily [place] 7.5-325 mg take one tablet by mouth every 6-8 hours if needed (p.r.n.) for pain Diflucan 100 mg take one tablet by mouth daily for 3 days DIET INSTRUCTIONS: Consistent carbs; eat yogurt ACTIVITY: No work until released by your primary care physician Continue to monitor your blood sugars Get plenty of rest at home. Gradually increase your activity level according to your toleration. SMOKING: Former smoker DISEASE SPECIFIC EDUCATION: Mastitis Home medications New prescriptions Follow up Referrals HOSPITAL COURSE: Susan Villarreal was hospitalized with cellulitis of the right breast. The patient has been treated with Vancomycin and Rocephin. Later on, switched to Garamycin and Linezolid. The patient's condition has improved. She has indurated area in the dependent part of the right breast, some swelling, no redness noted. The patient is tender to touch. CT scan showed inflammation also suggested to rule out inflammatory cancer which I don't think the patient has as the patient has been febrile several days before getting this under control. The patient was discharged on Levaquin. The patient is going to be followed by the primary care doctor, Dr. Ramires and also by Dr. Mary Cardoza. The patient is instructed to come back to the emergency room in case of fever and chills. CONDITION AT TIME OF DISCHARGE: Stable TIME SPENT: More than 60 minutes. HANKD
--- NOTE | 2017-05-12 14:23 | PN ---
CODING FOR BILLING 04/30/17 LEVEL 5 05/01/17 INTERMEDIATE 05/02/17 INTERMEDIATE 05/03/17 INTERMEDIATE 05/04/17 INTERMEDIATE 05/05/17 INTERMEDIATE 05/06/17 INTERMEDIATE 05/07/17 INTERMEDIATE 05/08/17 BRIEF 05/09/17 DISCHARGE MTDD
== END 2017-05-09 15:25 | disposition home or self-care (01) | DRG 601 ==
LOC: ED 12:50 → MEDSURG B 16:14
PROVIDERS: ADMIT Internal Medicine; ATTEND Internal Medicine
DX: N61.0 Mastitis without abscess (principal); E11.65 Type 2 diabetes mellitus with hyperglycemia; E87.6 Hypokalemia; E03.9 Hypothyroidism, unspecified; K42.9 Umbilical hernia without obstruction or gangrene; I10 Essential (primary) hypertension; E78.5 Hyperlipidemia, unspecified; J44.9 Chronic obstructive pulmonary disease, unspecified; D64.9 Anemia, unspecified; E66.9 Obesity, unspecified; N64.51 Induration of breast; Z79.4 Long term (current) use of insulin; Z79.899 Other long term (current) drug therapy; Z90.710 Acquired absence of both cervix and uterus; Z90.49 Acquired absence of other specified parts of digestive tract; Z87.891 Personal history of nicotine dependence
CPT/HCPCS: 36415; 80053; 80170; 80202; 81001; 82550; 82947; 82962; 83036; 83605; 84145; 84439; 84443; 84484; 85007; 85025; 86300; 87040; 87651; 87880; 93005; 93010; 96365; 96375; 97802; 99284

== ENCOUNTER 2017-05-11 10:14 | Outpatient (CLI) ==
[2017-05-11 10:48] LABS: ALBUMIN 2.8 g/dL (3.4-5.0); ALBUMIN/GLOBULIN RATIO 0.61; ANION GAP 13.3; BILIRUBIN,TOTAL 0.33 mg/dL (0.00-1.20); BUN/CREATININE RATIO 21.51; CALCIUM 9.7 mg/dL (8.2-10.2); CREATININE 0.79 mg/dL (0.60-1.30); POTASSIUM 4.3 mmol/L (3.5-5.10); TOTAL PROTEIN 7.4 g/dL (6.4-8.2)
== END 2017-05-11 10:15 | disposition home or self-care (01) ==
LOC: LAB 10:14
PROVIDERS: ATTEND General Practice
DX: N61.1 Abscess of the breast and nipple (principal); Z79.2 Long term (current) use of antibiotics
CPT/HCPCS: 36415; 80053

== ENCOUNTER 2017-06-04 07:46 | Outpatient (CLI) | END 2017-06-04 07:47 | disposition home or self-care (01) | LOC: LAB 07:46 | PROVIDERS: ATTEND General Practice | DX: R74.8 Abnormal levels of other serum enzymes (principal); E11.8 Type 2 diabetes mellitus with unspecified complications; I10 Essential (primary) hypertension; J44.9 Chronic obstructive pulmonary disease, unspecified; E03.9 Hypothyroidism, unspecified; D64.9 Anemia, unspecified; K74.60 Unspecified cirrhosis of liver; Z79.899 Other long term (current) drug therapy | CPT/HCPCS: 36415; 80053; 80061; 81001; 83036; 85025 ==

== ENCOUNTER 2017-08-19 12:32 | Outpatient (CLI) | END 2017-08-19 12:33 | disposition home or self-care (01) | LOC: FCC-LAB 12:32 | PROVIDERS: ATTEND General Practice | DX: E11.8 Type 2 diabetes mellitus with unspecified complications (principal); R74.8 Abnormal levels of other serum enzymes; K74.60 Unspecified cirrhosis of liver | CPT/HCPCS: 36415; 80076; 82947; 83036 ==

== ENCOUNTER 2017-08-20 15:34 | Outpatient (CLI) | END 2017-08-20 15:35 | disposition home or self-care (01) | LOC: FCC-LAB 15:34 | PROVIDERS: ATTEND General Practice | DX: E11.8 Type 2 diabetes mellitus with unspecified complications (principal) | CPT/HCPCS: 36415; 83525; 84681 ==

== ENCOUNTER 2017-08-21 12:49 | Emergency (ER) ==
[2017-08-21 12:54] VITALS: BP 130/84; TEMP 98.6; BMI 43.9
--- NOTE | 2017-08-21 13:41 | ED.PDOC ---
General ED Provider: Dr. GLADYS TAMAYO Chief Complaint: Nausea/Vomiting Stated Complaint: Nausea and Vomiting. Onset yesterday afternoon after her visit to her PCP for evaluation of diabetes and adjustment of insulin. State has had multiple episode and could not sleep last night. State she has experienced lt shoulder pain with aching into lt upper chest radiating into mid substernal region. Denies associate diarrhea, dyspnea or diaphoresis. Also complains of cramps in hands, feet and legs. Time Seen by Physician: 13:30 Mode of Arrival: Walk-In Information Source: Patient Exam Limitations: No limitations [facility] and T[facility] Documentation Reviewed and Agree: Yes Reviewed sepsis parameters & appropriate labs ordered?: Yes System Inflammatory Response Syndrome: Not Applicable Sepsis Protocol: For patient's 13 years and over: Temp is 96.8 and below OR 101 and greater Pulse >90 BPM Resp >20/minute Acutely Altered Mental Status Are patient's symptoms suggestive of a new infection, such as: -Pneumonia -Skin, Soft Tissue -Endocarditis -UTI -Bone, Joint Infection -Implantable Device -Acute Abdominal Infection -Wound Infection -Meningitis -Blood Stream Catheter Infection -Unknown System Inflammatory Response Syndrome: Not Applicable GI Complaint Exam - Vomiting/Diarrhea Complaint/Exam Symptoms Are: Still present Initial Severity: Moderate Current Severity: Mild Character of Vomiting: Reports: Bilious Aggravating: Reports: None Alleviating: Reports: None Associated Signs and Symptoms: Reports: Dizziness. Denies: Light-headedness, Hematemesis, Fever, Abdominal pain Related History: Denies: Similar episode Non-GI Risk Factors: Reports: None Surgical Obstruction Risk Factors: Reports: None Related Surgical History: Reports: None Abdominal Findings: Present: None Rectal Exam: Absent: Normal Findings Kussmaul Respirations Present: No Differential Diagnoses: Viral Gastroenteritis, UTI Review of Systems - Review Of Systems Constitutional: Reports: Weakness Eyes: Reports: No symptoms Ears, Nose, Mouth, Throat: Reports: No symptoms Respiratory: Reports: No symptoms Cardiac: Reports: No symptoms GI: Reports: Nausea, Poor appetite, Poor fluid intake, Vomiting : Reports: No symptoms Musculoskeletal: Reports: Joint pain (lt shoulder and upper lt ant chest wall region ), Other Skin: Reports: No symptoms Neurological: Reports: No symptoms Endocrine: Reports: No symptoms, Other (positive for diabetes) Hematologic/Lymphatic: Reports: No symptoms All Other Systems: Reviewed and Negative Past Medical History - Past Medical History Endocrine: Reports: DM 2, Hypothyroid Cardiovascular: Reports: Hypertension Respiratory: Reports: COPD Hematological: Reports: Anemia Gastrointestinal: Reports: None Genitourinary: Reports: None Neuro/Psych: Reports: None Musculoskeletal: Reports: None Cancer: Reports: None Last Menstrual Period: n/a - Surgical History General Surgical History: Reports: Hysterectomy, Cholecystectomy - Family History Family History: Reports: None - Social History Smoking Status: Former smoker Hx Substance Use: No Alcohol Screening: None Physical Exam - Physical Exam Appearance: Ill-appearing Ill-appearing: Moderate Pain Distress: Mild Eyes: YURI, EOMI, Conjunctiva clear, Right pupil size ENT: Ears normal, Nose normal Neck: Supple Respiratory: Airway patent, Breath sounds clear, Breath sounds equal Cardiovascular: RRR, Pulses normal GI/: Soft, No masses, Tender, Bowel sounds hyperactive Musculoskeletal: Normal strength, ROM intact, No edema Skin: Warm, Dry Neurological: Sensation intact, Motor intact, Reflexes intact, Cranial nerves intact, Alert, Oriented Re-Evaluation - Re-Evaluation Time of Re-Evaluation: 16:30 Status: Improved Vital Signs Stable: Yes Pain Level: 0 Appearance: NAD Lungs: Clear Skin: Warm and Dry Neuro: Alert and Oriented X3 CV: RRR Additional Comments: Is currently improved and anxious for discharge Critical Care Note - Critical Care Note Total Time (mins): 0 Course - Course Hematology/Chemistry: 08/21/17 14:14 08/21/17 14:14 Orders, Labs, Meds: Lab Review 08/21/17 08/21/17 08/21/17 14:14 14:14 15:22 WBC 7.71 RBC 5.29 Hgb 16.1 H Hct 45.2 MCV 85.4 MCH 30.4 MCHC 35.6 H RDW Coeff of Brianne 12.7 Plt Count 187 Immature Gran % (Auto) 0.3 Neut % (Auto) 56.3 Lymph % (Auto) 35.0 [place] % (Auto) 6.6 Eos % (Auto) 1.4 Baso % (Auto) 0.4 Immature Gran # (Auto) 0.0 Neut # (Auto) 4.3 Lymph # (Auto) 2.7 [place] # (Auto) 0.5 Eos # (Auto) 0.1 Baso # (Auto) 0.0 Sodium 134 L Potassium 3.6 Chloride 100 Carbon Dioxide 26 Anion Gap 11.6 BUN 10 Creatinine 0.78 Estimated GFR (MDRD) 76.00 BUN/Creatinine Ratio 12.82 Glucose 311 H Calcium 9.5 Magnesium 1.9 Total Bilirubin 0.5 AST 35 ALT 45 Alkaline Phosphatase 102 H D Total Creatine Kinase 76 Troponin I < 0.0100 Total Protein 7.3 Albumin 3.1 L Globulin 4.2 Albumin/Globulin Ratio 0.74 Urine Color Urine Clarity Urine pH Ur Specific [place] Urine Protein Urine Glucose (UA) Urine Ketones Urine Blood Urine Nitrite Urine Bilirubin Urine Urobilinogen Ur Leukocyte Esterase Influ A Molecular Assay Negative by naat Influ B Molecular Assay Negative by naat 08/21/17 16:00 WBC RBC Hgb Hct MCV MCH MCHC RDW Coeff of Brianne Plt Count Immature Gran % (Auto) Neut % (Auto) Lymph % (Auto) [place] % (Auto) Eos % (Auto) Baso % (Auto) Immature Gran # (Auto) Neut # (Auto) Lymph # (Auto) [place] # (Auto) Eos # (Auto) Baso # (Auto) Sodium Potassium Chloride Carbon Dioxide Anion Gap BUN Creatinine Estimated GFR (MDRD) BUN/Creatinine Ratio Glucose Calcium Magnesium Total Bilirubin AST ALT Alkaline Phosphatase Total Creatine Kinase Troponin I Total Protein Albumin Globulin Albumin/Globulin Ratio Urine Color Yellow Urine Clarity Clear Urine pH 5.5 Ur Specific [place] <=1.005 Urine Protein Negative Urine Glucose (UA) 2+ Urine Ketones Negative Urine Blood Negative Urine Nitrite Negative Urine Bilirubin Negative Urine Urobilinogen 0.2 Ur Leukocyte Esterase Negative Influ A Molecular Assay Influ B Molecular Assay Orders Category Date Time Status EKG-(ED ONLY) Stat CARDIO 08/21/17 13:36 Completed CBC W/ AUTO DIFF Stat LAB 08/21/17 14:14 Completed CMP [COMPREHENSIVE METABOLIC PANEL] Stat LAB 08/21/17 14:14 Completed CPK [CREATINE KINASE] Stat LAB 08/21/17 14:14 Completed FLU A & B MOLECULAR [FLU A/B MOLECULAR] Stat LAB 08/21/17 15:22 Completed MAGNESIUM Stat LAB 08/21/17 14:14 Completed TROPONIN I Stat LAB 08/21/17 14:14 Completed UA [URINALYSIS C & S IF INDICATED] Stat LAB 08/21/17 16:00 Completed Ondansetron HCl/Pf [Zofran 4 mg/2 ml] MEDS 08/21/17 13:49 Discontinued 4 mg IVP ONCE STA Sodium Chloride 0.9% [Sodium Chloride] 1,000 ml MEDS 08/21/17 13:48 Discontinued IV BOLUS ABDOMEN, SERIES FLAT & UPRIGHT Stat RADS 08/21/17 13:46 Completed CHEST, 2 VIEWS PA & LAT Stat RADS 08/21/17 13:46 Completed Medications Discontinued Medications Generic Name Dose Route Start Last Admin Trade Name Freq PRN Reason Stop Dose Admin Sodium Chloride 1,000 mls @ 500 mls/hr 08/21/17 13:48 08/21/17 14:05 Sodium Chloride IV 08/21/17 15:47 500 mls/hr BOLUS STA Administration Ondansetron HCl 4 mg 08/21/17 13:49 08/21/17 14:05 Zofran 4 Mg/2 Ml IVP 08/21/17 13:50 4 mg ONCE STA Administration Vital Signs: Temp Pulse Resp BP Pulse Ox 08/21/17 12:50 98.6 F 89 20 130/84 97 Departure - Departure Time of Disposition: 17:00 Disposition: HOME SELF-CARE Discharge Problem: Gastroenteritis Instructions: Gastroenteritis (ED) Condition: Good Pt referred to PMD for follow-up: Yes IPMP verified?: No Prescriptions: Ondansetron [Zofran Odt] 4 mg PO Q8H PRN #10 tab.rapdis PRN Reason: Nausea and vomiting Allergies/Adverse Reactions: Allergies latex Adverse Reaction (Verified 08/21/17 12:55) Home Medications: Ambulatory Orders Hydrochlorothiazide 12.5 mg PO DAILY 02/15/13 Dulaglutide [Trulicity] 0.75 mg SQ WEEKLY 08/21/17 Metformin HCl 250 mg PO BID 08/21/17 Ondansetron [Zofran Odt] 4 mg PO Q8H PRN #10 tab.rapdis 08/21/17 Ondansetron [Zofran Odt] 4 mg PO Q8H PRN #7 tab.rapdis 08/21/17
[2017-08-21] MEDS ORDERED: SODIUM CHLORIDE 1,000 ML IV STA (13:48)
[2017-08-21] MEDS ORDERED: ZOFRAN 4 MG/2 ML IVP STA (13:49)
--- NOTE | 2017-08-21 14:15 | DI ---
EXAM: Two-view chest. HISTORY: Chest pain. COMPARISON: 09/13/2015 FINDINGS: PA and lateral views of the chest. LUNGS: The lung volumes are normal. There is no lobar consolidation or effusion. The pulmonary inte rstitium is normal. There are no suspicious nodules. MEDIASTINUM: The heart size and pulmonary vasculature are within normal limits. The aorta is tortu ous and calcified. OSSEOUS STRUCTURES: The osseous structures show mild degenerative changes consistent with age. The so ft tissues are unremarkable. There are clips in the right upper quadrant. IMPRESSION: No acute pulmonary disease.
--- NOTE | 2017-08-21 14:20 | DI ---
EXAM: Acute abdomen. HISTORY: Nausea vomiting. COMPARISON: CT dated 04/30/2017. FINDINGS: Supine and upright views of the abdomen pelvis on four images. The lung bases are clear. There are clips in the upper quadrant from prior cholecystectomy. There is a large amount of stool in the ascending colon. There are are no dilated loops of bowel to suggest small bowel obstruction. There are degenerative changes spine. IMPRESSION: Nonobstructive bowel gas pattern. Post cholecystectomy. Atherosclerotic disease of the aorta.
== END 2017-08-21 17:50 | disposition home or self-care (01) ==
LOC: ED 12:49
DX: K52.9 Noninfective gastroenteritis and colitis, unspecified (principal); M25.512 Pain in left shoulder; R07.89 Other chest pain; E11.9 Type 2 diabetes mellitus without complications; R42 Dizziness and giddiness; R53.1 Weakness; E03.9 Hypothyroidism, unspecified; I10 Essential (primary) hypertension; D64.9 Anemia, unspecified
CPT/HCPCS: 36415; 80053; 81001; 82550; 83735; 84484; 85025; 87502; 93005; 93010; 96361; 96374; 99283

== ENCOUNTER 2017-09-03 15:44 | Outpatient (CLI) | payer OTHER ==
--- NOTE | 2017-09-03 15:59 | DI ---
EXAM: Left clavicle two views HISTORY: Pain after fall FINDINGS: No fracture is identified. AC joint is intact without separation. No notable arthropathy . IMPRESSION: Within normal limits.
== END 2017-09-03 15:45 | disposition home or self-care (01) ==
LOC: RAD 15:44
PROVIDERS: ATTEND General Practice
DX: M25.512 Pain in left shoulder (principal); W19.XXXA Unspecified fall, initial encounter

== ENCOUNTER 2017-09-11 07:32 | Outpatient (CLI) | END 2017-09-11 07:33 | disposition home or self-care (01) | LOC: LAB 07:32 | PROVIDERS: ATTEND General Practice | DX: E11.8 Type 2 diabetes mellitus with unspecified complications (principal) | CPT/HCPCS: 36415; 82947; 83036 ==

== ENCOUNTER 2017-10-07 12:48 | Outpatient (CLI) | END 2017-10-07 12:49 | disposition home or self-care (01) | LOC: FCC-LAB 12:48 | PROVIDERS: ATTEND General Practice | DX: E11.8 Type 2 diabetes mellitus with unspecified complications (principal) | CPT/HCPCS: 36415; 80053; 83036 ==

== ENCOUNTER 2017-10-14 15:08 | Outpatient (CLI) | payer OTHER | END 2017-10-14 15:09 | disposition home or self-care (01) | LOC: FCC-LAB 15:08 | PROVIDERS: ATTEND General Practice | DX: E11.8 Type 2 diabetes mellitus with unspecified complications (principal); R63.1 Polydipsia | CPT/HCPCS: 36415; 80053; 85025 ==

== ENCOUNTER 2017-10-14 15:45 | Observation (INO) | payer OTHER ==
[2017-10-14 16:26] VITALS: BMI 43.1
[2017-10-14] MEDS ORDERED: NORVASC PO SCH (17:30)
[2017-10-14] MEDS ORDERED: FERROUS SULFATE PO SCH (17:30)
[2017-10-14] MEDS ORDERED: LOTENSIN PO SCH (17:30)
[2017-10-14] MEDS: MEVACOR PO SCH ×2 (17:56→21:43)
[2017-10-14] MEDS: LOVENOX SUBCUT SCH (18:11)
[2017-10-14] MEDS: JARDIANCE PO SCH (18:15)
[2017-10-15] MEDS ORDERED: SYNTHROID PO SCH (06:30)
[2017-10-15] MEDS: JARDIANCE PO SCH (08:54)
[2017-10-15] MEDS: LOVENOX SUBCUT SCH (08:57)
[2017-10-15] MEDS ORDERED: LOTENSIN PO SCH (09:00)
[2017-10-15] MEDS ORDERED: NORVASC PO SCH (09:00)
[2017-10-15 13:43] VITALS: BP 90/58; TEMP 98.2
--- NOTE | 2017-10-21 09:59 | SSS ---
DATE OF SERVICE: ADMISSION: 10/14/17 DISCHARGE: 10/15/17 CHIEF COMPLAINT: Polyuria, polydipsia and fatigue. SOURCE OF HISTORY: Patient. HISTORY OF PRESENT ILLNESS: The patient is known to have diabetes mellitus. Compliance with medication had been difficult on account drug availability. The patient was given a trial of Trulicity beginning with 0.75 mg and increased to 1.5. The patient noted that her blood sugar at home was high and that her glucometer had not been functional, so she could not determine, but she now is complaining of excessive thirst and frequent urination and some fatigue. The patient's blood sugar was 438. The patient was then advised admission to observation to see if the blood sugar could be monitored and maybe brought down to acceptable levels with an added medication. The patient denied any chest pain or any abdominal pain. The patient wa agreeable to the idea of being admitted to the hospital under observation admission. PAST PERSONAL HISTORY: The patient was a former smoker and was diagnosed to have COPD in 2006. She had a history of pneumonia, previous cholecystectomy in 1996, total abdominal hysterectomy and also had stress incontinence, hypothyroidism, hepatitis B 30 years ago, history of anemia, history of cardiac catheterization 2004 and negative or no remarkable coronary artery disease. I, Para I. FAMILY HISTORY: Brother had heart disease, all of the brothers had back pain. Father had lung carcinoma and from the disease. Mother had heart disease, as well as diabetes. SOCIAL HISTORY: The patient is and resides with her and works with [employer]. She stopped smoking several years ago. MEDICATIONS: Prior to this admission. Hydrochlorothiazide 12.5 mg daily Amlodipine 5 mg daily Lovastatin 40 mg daily Estradiol 1 mg daily Levothyroxine 200 mcg daily Trulicity 1.5 mg weekly Ferrous Sulfate 325 mg twice a day Benazepril 20 mg twice a day ALLERGIES: The patient is allergic to Latex. REVIEW OF SYSTEMS: CONSTITUTIONAL: The patient has no fever and no chills, somewhat fatigued because of frequent urination. 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 No syncopal episodes and no loss of consciousness. VISUAL: Denies any double vision or loss or vision. No blurred vision. AUDITORY: Hearing is adequate. Denies any pain or drainage in both ears. RESPIRATORY: Denies any cough or any shortness of breath with usual exertion. CARDIOVASCULAR: Denies any chest pain or chest tightness. GASTROINTESTINAL: Denies any dysphagia, abdominal pain, diarrhea. GENITOURINARY: The patient has frequency of urination. She is thirsty and drinking a whole lot of water. No pain on urination. ENDOCRINE: History of diabetes mellitus. This patient now has polyuria and polydipsia. INTEGUMENT: No rash or pruritus. HEMATOLOGIC: No history of prolonged bleeding. PSYCHIATRIC: Affect is normal. PHYSICAL EXAMINATION: GENERAL: We have a 56 year old female admitted to the hospital because of polyuria, polydipsia and markedly elevated blood sugar of 438 mg percent. VITAL SIGNS: Temperature 98.6, pulse 100, blood pressure left 111/73, right 126/ 81, respiratory rate 20, oxygen saturation 94 at room air. She is 5'2", 236 pounds, BMI 43.2. HEAD: Unremarkable. FACE: Symmetrical and equal with no facial weakness and no redness. There is no remarkable tenderness to palpation under pressure in the frontal or maxillary sinus areas. EYES: Pupils equal/reactive to light about 3 mm in size. Conjunctivae not pale. Sclerae not icteric. MOUTH: Unremarkable. THROAT: No inflammation, tumors or exudate. NECK: No masses. No bruit. No tenderness. No rigidity. CHEST: Essentially symmetrical and equal with good expansion. No remarkable tenderness in the chest wall to percussion. LUNGS: Breath sounds are heard in both sides. No rales or wheezing. The breath sounds are somewhat diminished. HEART: Audible and regular with good tones. No murmurs. ABDOMEN: Protuberant, soft with no remarkable tenderness. No guarding. Bowel sounds are active. No masses palpable. EXTERNAL GENITALIA: Not examined. PELVIC AND RECTAL: Not done. LOWER EXTREMITIES: Essentially symmetrical and equal with some ankle and leg edema. The anterior tibials are palpable. UPPER EXTREMITIES: Symmetrical and equal. ASSESSMENT: 1. DIABETES MELLITUS, UNCONTROLLED, PROBABLY TYPE II 2. HYPERTENSION CONTROLLED 3. MARKEDLY ELEVATED BMI 4. HYPOTHYROIDISM REPLACED 5. DYSLIPIDEMIA HOSPITAL COURSE: The patient had her last dose of Trulicity last and will not be due until this coming . The patient was given Jardiance 25 mg p.o. and will be done every day. The patient's accucheck was 364. The patient's appetite had been good. Eating 100% of her snacks. She also had 100 % of dinner. The patient still had frequency of urination and did void six times on 10/15/17. The accuchecks had been decreasing and her last accucheck prior to discharge was 197. The patient's lab on 10/15/17 showed essentially normal electrolytes. CO2 is 26 and iron gap 18.7. BUN 15, creatinine 0.89, E GFR 65, blood sugar 295, plasma insulin level 14.2, plasma C-Peptide is 6, calcium 10.1, serum transferrin 213 with normal 200-370. Serum Ferritin 1232.74 , TSH 0.761. Urinalysis with 2+ sugar and the rest are negative. Blood sugar of 10/14/2017 was 438. The patient claimed to be feeling better and the patient at discharge was alert , ambulatory with no chest pain or abdominal pain and no significant headaches. LUNGS: Clear to auscultation in both sides. HEART: Audible and regular with good tones. VITAL SIGNS: At 1:42 p.m. showed a temperature of 98.2, pulse 90, blood pressure 90/58, respiratory rate 20, oxygen saturation 95 at room air. The patient was instructed to reduce the Benazepril to 10 mg instead of 20 mg and Amlodipine to 2.5 mg instead of 5 mg. She was given samples of Jardiance from the office, 25 mg daily to be taken daily and also samples of Trulicity 1.5 mg times two doses. Continue the rest of the medications at the same doses. She is to see me in one week and before if there is any concerns. She is also given a note to stay off work on 10/16/17 and 10/17/17 respectively. The patient also was instructed to check her blood sugar before breakfast, before lunch and before supper for one week. FINAL DIAGNOSIS: 1. DIABETES MELLITUS, PROBABLY TYPE II, UNCONTROLLED, IMPROVED 2. HYPOTHYROIDISM, REPLACED 3. HYPERTENSION, CONTROLLED 4. MARKEDLY ELEVATED BMI 5. HISTORY OF HEPATITIS B MTDD
== END 2017-10-15 17:20 | disposition home or self-care (01) ==
LOC: INTOOBSV 15:45 → MEDSURG B 15:45
PROVIDERS: ADMIT General Practice; ATTEND General Practice
DX: E11.65 Type 2 diabetes mellitus with hyperglycemia (principal); I10 Essential (primary) hypertension; E66.9 Obesity, unspecified; E03.9 Hypothyroidism, unspecified; E78.5 Hyperlipidemia, unspecified; Z68.41 Body mass index [BMI] 40.0-44.9, adult; Z86.19 Personal history of other infectious and parasitic diseases; Z79.899 Other long term (current) drug therapy
CPT/HCPCS: 36415; 80048; 81001; 82728; 82962; 83519; 83525; 84443; 84466; 84681

== ENCOUNTER 2017-11-06 07:30 | Outpatient (CLI) | payer OTHER | END 2017-11-06 07:31 | disposition home or self-care (01) | LOC: LAB 07:30 | PROVIDERS: ATTEND General Practice | DX: E11.8 Type 2 diabetes mellitus with unspecified complications (principal) | CPT/HCPCS: 36415; 80061; 80069; 83036 ==

== ENCOUNTER 2018-01-08 07:27 | Outpatient (CLI) | END 2018-01-08 07:28 | LOC: LAB 07:27 | PROVIDERS: ATTEND General Practice | DX: E11.8 Type 2 diabetes mellitus with unspecified complications (principal) | CPT/HCPCS: 36415; 82947; 83036 ==

== ENCOUNTER 2018-02-18 07:36 | Outpatient (CLI) ==
[2018-02-02 18:56] VITALS: BMI 41.5
== END 2018-02-18 07:37 | disposition home or self-care (01) ==
LOC: LAB 07:36
PROVIDERS: ATTEND General Practice
DX: E11.8 Type 2 diabetes mellitus with unspecified complications (principal); D64.9 Anemia, unspecified; E78.5 Hyperlipidemia, unspecified
CPT/HCPCS: 36415; 80053; 80061; 81001; 83036; 85025

== ENCOUNTER 2018-08-05 09:25 | Outpatient (CLI) ==
[2018-04-28 18:21] VITALS: BMI 45.1
== END 2018-08-05 09:26 | disposition home or self-care (01) ==
LOC: LAB 09:25
PROVIDERS: ATTEND Internal Medicine Endocrinology, Diabetes & Metabolism
DX: E78.89 Other lipoprotein metabolism disorders (principal)
CPT/HCPCS: 36415; 80061

== ENCOUNTER 2018-10-12 14:30 | Emergency (ER) ==
[2018-10-12 14:33] VITALS: BP 164/91; TEMP 101.1; BMI 48.6
--- NOTE | 2018-10-12 18:17 | CT ---
EXAM: CT scan of the abdomen and pelvis without contrast HISTORY: Vomiting, fever, diarrhea TECHNIQUE: Helical imaging of the abdomen pelvis was performed without contrast. 3 mm thin axial im ages and coronal and sagittal reconstructions were provided for interpretation. Comparison CT scan of the abdomen pelvis dated 04/30/2017. FINDINGS: The patient has had previous cholecystectomy. Diffuse low density changes are seen throug hout the parenchyma of the liver. The small and large bowel loops are normal caliber. There is no f ree air. No retroperitoneal abnormalities are seen. The appendix was not seen. No definite inflamm atory changes are seen in the right lower quadrant. The helical images obtained through the pelvis demonstrate a normal appearance of the rectum, urinary bladder. There has been previous hysterectomy. Lung bases are clear. No lytic or blastic lesions are seen within the osseous structures. IMPRESSION: There is no bowel obstruction or acute inflammatory change seen within the abdomen and p jeffery. There is no ureteral obstruction. Previous cholecystectomy. Fatty infiltration of the liver.
--- NOTE | 2018-10-12 18:18 | CT ---
Exam: CT chest without intravenous contrast. Comparison: Chest x-ray performed 04/28/2018. Reason for exam: Cough. FINDINGS: The thyroid gland appears mildly prominent in size. Scarring. Parenchymal thickening in the right upper lobe measuring approximately 8 mm on axial image number 14. Old granulomas disease is seen within the lung parenchyma. Micronodules are seen in the lung bases m easuring 3 mm or less as seen on axial image number 28, 30, and 39. Operative changes are seen after gallbladder removal. The partially imaged upper abdomen appears grossly unremarkable. The aorta appears normal in course and caliber. The heart is not enlarged. Impression: 1. No pneumothorax, pleural effusion, or focal airspace consolidation. 2. 8 mm parenchymal thickening/scarring changes in the right upper lobe on axial image number 14. R ecommend 3-6-month follow-up imaging to document stability. 3. Micronodules are seen in the lung bases measuring 3 mm or less. Recommend attention in these loc ations on follow up images. 4. Mild prominence of the thyroid. If clinical concern exists, ultrasound of the thyroid could be p erformed for further characterization.
--- NOTE | 2018-10-12 18:32 | ED.PDOC ---
General ED Provider: Dr. LOAN GAMBOA Chief Complaint: Nausea/Vomiting Stated Complaint: n/v/d and abdominal pain Time Seen by Physician: 14:30 ( seen with denzel from resp) Mode of Arrival: Walk-In Information Source: Patient Exam Limitations: No limitations Primary Care Provider: VERONICA CULVER-[facility] Nursing and Triage Documentation Reviewed and Agree: Yes Does patient meet sepsis criteria?: No If yes, has appropriate treatment been initiated?: No System Inflammatory Response Syndrome: Not Applicable Sepsis Protocol: For patient's 13 years and over: Temp is 96.8 and below OR 101 and greater Pulse >90 BPM Resp >20/minute Acutely Altered Mental Status Are patient's symptoms suggestive of a new infection, such as: -Pneumonia -Skin, Soft Tissue -Endocarditis -UTI -Bone, Joint Infection -Implantable Device -Acute Abdominal Infection -Wound Infection -Meningitis -Blood Stream Catheter Infection -Unknown GI Complaint Exam - Abdominal Pain Complaint/Exam Onset: Gradual Duration: 1day Symptoms Are: Resolved Timing: Intermittent Initial Severity: Moderate Current Severity: None Location of Pain: Diffuse Radiates To: Denies: Chest, Back, Flank, LLQ, RLQ, Inguinal Character: Reports: Aching Aggravating: Reports: None Alleviating: Reports: None Associated Signs and Symptoms: Reports: Cough. Denies: Diaphoresis, Fever, Chest pain, Dizziness, Back pain, Constipation, Blood in stool, Dysuria, Urinary frequency, Decreased urine output, Decreased appetite, Vaginal bleeding , Vaginal discharge, Nausea, Vomiting, Diarrhea, Sore throat, Decreased activity Related History: Reports: Similar episode AAA Risk Factors: Reports: None Cardiac Risk Factors: Reports: None Ectopic Risk Factors: Reports: None Ovarian Torsion Risk Factors: Reports: None Surgical Obstruction Risk Factors: Reports: None Related Surgical History: Reports: None Patient Rh Status: Unknown Abdominal Findings: Present: None Review of Systems - Review Of Systems Constitutional: Reports: No symptoms Eyes: Reports: No symptoms Ears, Nose, Mouth, Throat: Reports: No symptoms Respiratory: Reports: No symptoms Cardiac: Reports: No symptoms GI: Reports: No symptoms : Reports: No symptoms Musculoskeletal: Reports: No symptoms Skin: Reports: No symptoms Neurological: Reports: No symptoms Endocrine: Reports: No symptoms Hematologic/Lymphatic: Reports: No symptoms All Other Systems: Reviewed and Negative Past Medical History - Past Medical History Previously Healthy: No Endocrine: Reports: DM 2, Hypothyroid Cardiovascular: Reports: Hypertension, Other (previous neg cardiac eval and heart cath) Respiratory: Reports: COPD Hematological: Reports: Anemia Gastrointestinal: Reports: None Genitourinary: Reports: None Neuro/Psych: Reports: None Musculoskeletal: Reports: None Cancer: Reports: None Last Menstrual Period: na - Surgical History General Surgical History: Reports: Hysterectomy, Cholecystectomy - Family History Family History: Reports: None - Social History Smoking Status: Former smoker Hx Substance Use: No Alcohol Screening: None - Immunizations Tetanus Shot up to Date: Yes Physical Exam - Physical Exam Appearance: Well-appearing, No pain distress, Well-nourished Eyes: YURI, EOMI, Conjunctiva clear ENT: Ears normal, Nose normal, Oropharynx normal Respiratory: Airway patent, Breath sounds clear, Breath sounds equal, Respirations nonlabored Cardiovascular: RRR, Pulses normal, No rub, No murmur GI/: Soft, Nontender, No masses, Bowel sounds normal, No Organomegaly Musculoskeletal: Normal strength, ROM intact, No edema, No calf tenderness Skin: Warm, Dry, Normal color Neurological: Sensation intact, Motor intact, Reflexes intact, Cranial nerves intact, Alert, Oriented Psychiatric: Affect appropriate, Mood appropriate Critical Care Note - Critical Care Note Total Time (mins): 0 Course - Course Hematology/Chemistry: 10/12/18 17:52 10/12/18 17:52 Orders, Labs, Meds: Lab Review 10/12/18 10/12/18 10/12/18 17:52 17:52 18:05 WBC 6.51 RBC 5.48 H Hgb 16.5 H Hct 48.9 H MCV 89.2 MCH 30.1 MCHC 33.7 RDW Coeff of Brianne 12.8 Plt Count 220 Immature Gran % (Auto) 0.2 Neut % (Auto) 56.2 Lymph % (Auto) 26.6 [place] % (Auto) 16.3 H Eos % (Auto) 0.2 Baso % (Auto) 0.5 Immature Gran # (Auto) 0.0 Neut # (Auto) 3.7 Lymph # (Auto) 1.7 [place] # (Auto) 1.1 Eos # (Auto) 0.0 Baso # (Auto) 0.0 Sodium 135.8 Potassium 3.56 Chloride 97.4 L Carbon Dioxide 27.9 Anion Gap 14.06 BUN 18.9 H Creatinine 0.76 Estimated GFR (MDRD) 78.00 BUN/Creatinine Ratio 24.86 Glucose 451.2 H Calcium 8.85 Total Bilirubin 0.69 AST 49.6 H ALT 53.7 H Alkaline Phosphatase 140.0 Total Protein 7.27 Albumin 4.20 Globulin 3.07 Albumin/Globulin Ratio 1.36 Amylase 36.8 Lipase 70.7 Urine Color Yellow Urine Clarity Clear Urine pH 5.5 Ur Specific [place] 1.020 Urine Protein Trace Urine Glucose (UA) 2+ Urine Ketones Negative Urine Blood Negative Urine Nitrite Positive Urine Bilirubin Negative Urine Urobilinogen 0.2 Ur Leukocyte Esterase Negative Urine Microscopic WBC 0-2 Ur Squamous Epith Cells 5-10 Urine Bacteria 1+ Hyaline Casts 0-2 Orders Category Date Time Status AMYLASE Stat LAB 10/12/18 17:52 Completed CBC W/ AUTO DIFF Stat LAB 10/12/18 17:52 Completed COMPREHENSIVE METABOLIC PANEL Stat LAB 10/12/18 17:52 Completed LIPASE Stat LAB 10/12/18 17:52 Completed URINALYSIS C & S IF INDICATED Stat LAB 10/12/18 18:05 Completed URINE CULTURE Stat LAB 10/12/18 18:[address] ABDOMEN/PELVIS WO CONTRAST Stat RADS 10/12/18 17:[address] CHEST W/O CONTRAST Stat RADS 10/12/18 17:44 Completed Vital Signs: Temp Pulse Resp BP Pulse Ox 10/12/18 14:30 101.1 F H 123 H 18 164/91 H 94 L Departure - Departure Time of Disposition: 18:34 Disposition: HOME SELF-CARE Discharge Problem: Nausea, Vomiting, Fatty liver, Acute gastroenteritis Instructions: Non-Alcoholic Fatty Liver Disease (ED), Gastroenteritis (ED) Condition: Good Pt referred to PMD for follow-up: Yes IPMP verified?: No Additional Instructions: Please call your Family Physician as soon as possible to schedule a follow-up appointment. Prescriptions: Diphenoxylate HCl/Atropine [Lomotil] 1 tab PO BID #7 tablet Ondansetron HCl [Zofran] 4 mg PO BID #7 tablet Allergies/Adverse Reactions: Allergies latex Adverse Reaction (Verified 10/12/18 17:30) Home Medications: Ambulatory Orders Levothyroxine Sodium 25 mcg PO DIRECTED 04/28/18 Glyburide 5 mg PO TID 05/07/18 NPH, Human Insulin Isophane [Novolin N Insulin] 16 unit SQ BID vial 05/07/18 Diphenoxylate HCl/Atropine [Lomotil] 1 tab PO BID #7 tablet 10/12/18 Insulin Regular, Human [Humulin R] 12 units SUBCUT DAILY vial 10/12/18 Insulin Regular, Human [Humulin R] 18 unit SQ INSULIN EVENING 10/12/18 Ondansetron HCl [Zofran] 4 mg PO BID #7 tablet 10/12/18
[2018-10-12] MEDS: ZOFRAN 4 MG/2 ML IM STA (18:52)
== END 2018-10-12 19:11 | disposition home or self-care (01) ==
LOC: ED 14:30
DX: K52.9 Noninfective gastroenteritis and colitis, unspecified (principal); K76.0 Fatty (change of) liver, not elsewhere classified; R05 Cough; E11.9 Type 2 diabetes mellitus without complications; E03.9 Hypothyroidism, unspecified; I10 Essential (primary) hypertension; Z79.4 Long term (current) use of insulin; Z79.899 Other long term (current) drug therapy
CPT/HCPCS: 36415; 80053; 81001; 82150; 83690; 85025; 87086; 87186; 96372; 99283

== ENCOUNTER 2018-10-20 06:28 | Outpatient (CLI) | END 2018-10-20 06:29 | disposition home or self-care (01) | LOC: LAB 06:28 | PROVIDERS: ATTEND Internal Medicine Endocrinology, Diabetes & Metabolism | DX: E03.9 Hypothyroidism, unspecified (principal); E11.8 Type 2 diabetes mellitus with unspecified complications; J44.9 Chronic obstructive pulmonary disease, unspecified; Z79.899 Other long term (current) drug therapy | CPT/HCPCS: 36415; 80053; 80061; 81001; 82043; 83036; 84443; 85025; 87086 ==

== ENCOUNTER 2019-01-06 14:23 | Inpatient (IN) ==
[2019-01-06] MEDS ORDERED: ASPIRIN CHEWABLE PO STA (14:35)
--- NOTE | 2019-01-06 15:23 | DI ---
EXAM: Single view of the chest. History: Chest pain. Comparison: Chest radiograph 04/28/2018, chest CT 10/12/2018 Findings: Heart is borderline enlarged. No focal consolidation. No appreciable pleural fluid and n o pneumothorax. No acute osseous abnormalities. Atherosclerotic vascular calcifications. Coronary calcifications. Impression: Borderline cardiomegaly without acute disease in the chest. Coronary artery disease
--- NOTE | 2019-01-06 16:34 | CT ---
EXAM: CTA of the chest. History: Chest pain and elevated D-dimer. Comparison: Chest radiograph 01/06/2019, chest CT 10/12/2018 Technique: Multiplanar CT images through the thorax were obtained following administration of IV con trast Findings: Diffuse thyroid enlargement with possible thyroid nodules. Heart is enlarged. No pericar dial effusion. Great vessels are unremarkable. No pulmonary arterial filling defects. No pathologi candelario enlarged thoracic lymph nodes. No pulmonary edema. No consolidated pneumonia. No pleural flu id and no pneumothorax. No suspicious lung masses or lung nodules. The incidental azygos fissure. Calcified granuloma is seen within the left lower lobe. Within the visualized upper abdomen, status post cholecystectomy. The liver is fatty. No acute osse ous abnormalities. Impression: 1. No pulmonary embolism and no evidence for pneumonia. 2. Cardiomegaly with no pulmonary edema. 3. Hepatic steatosis. 4. Diffuse thyroid enlargement with possible thyroid nodules.
--- NOTE | 2019-01-06 16:59 | ED.PDOC ---
General ED Provider: Dr. LOAN GAMBOA Chief Complaint: Chest Pain Stated Complaint: chest pain at 1 pm while watching tv Time Seen by Physician: 14:27 (seen with her nurse at all times ) Mode of Arrival: Walk-In Information Source: Patient Exam Limitations: No limitations Primary Care Provider: VERONICA [facility]X [facility] Nursing and Triage Documentation Reviewed and Agree: Yes Does patient meet sepsis criteria?: No System Inflammatory Response Syndrome: Not Applicable Sepsis Protocol: For patient's 13 years and over: Temp is 96.8 and below OR 101 and greater Pulse >90 BPM Resp >20/minute Acutely Altered Mental Status Are patient's symptoms suggestive of a new infection, such as: -Pneumonia -Skin, Soft Tissue -Endocarditis -UTI -Bone, Joint Infection -Implantable Device -Acute Abdominal Infection -Wound Infection -Meningitis -Blood Stream Catheter Infection -Unknown Cardiovascular Complaint Exam - Chest Pain Complaint/Exam Onset: Gradual Duration: 3 hours no asprin taken Symptoms Are: Still present Length of Chest Pain Episodes: 3 hours Initial Severity: Mild Current Severity: None Location: Reports: Midsternal Pain Radiates: Reports: Back Character: Reports: Dull Aggravating: Reports: None Alleviating: Reports: None Associated Signs and Symptoms: Denies: Diaphoresis, Nausea, Vomiting, Fever, Palpitations, Cough, Hemoptysis, Back pain, Abdominal pain, Dizziness, Short of air, Calf pain, Calf swelling Related History: Reports: Similar episode Related Surgical History: Reports: None History of Healthcare-Acquired Pneumonia: Reports: No AMI/ACS Risk Factors: Reports: None, Diabetes, Obesity, Hypertension TAD Risk Factors: Reports: Hypertension Pulmonary Embolism Risk Factors: Reports: None Prior Care for this Complaint: No Recent Stress Test: Yes (3 months ago pt reports it was negative) Recent Echo/LV Function: No JVD Present: No Subcutaneous Emphysema Present: No Diminshed Breath Sounds: No Reproducible Chest Wall Pain: No Bilateral Pulses Present: Yes Unequal Pulses Noted: No If Risk Factors for AMI/ACS Consider: EKG, Cardiac Enzymes Differential Diagnoses: ACS, GI Diseasae, Lower Resp. Infection Quality Indicators For Acute CO or Cardiac Chest Pain: EKG in 10min. Review of Systems - Review Of Systems Constitutional: Reports: Malaise Eyes: Reports: No symptoms Ears, Nose, Mouth, Throat: Reports: No symptoms Respiratory: Reports: Cough Cardiac: Reports: Chest pain GI: Reports: No symptoms : Reports: No symptoms Musculoskeletal: Reports: No symptoms Skin: Reports: No symptoms Neurological: Reports: No symptoms Endocrine: Reports: No symptoms Hematologic/Lymphatic: Reports: No symptoms All Other Systems: Reviewed and Negative Past Medical History - Past Medical History Previously Healthy: No Endocrine: Reports: DM 2, Hypothyroid Cardiovascular: Reports: Hypertension, Other (previous neg cardiac eval and heart cath) Respiratory: Reports: COPD Hematological: Reports: Anemia Gastrointestinal: Reports: None Genitourinary: Reports: None Neuro/Psych: Reports: None Musculoskeletal: Reports: None Cancer: Reports: None Last Menstrual Period: none - Surgical History General Surgical History: Reports: Hysterectomy, Cholecystectomy - Family History Family History: Reports: None - Social History Smoking Status: Former smoker Hx Substance Use: No Alcohol Screening: None Physical Exam - Physical Exam Appearance: Well-appearing, No pain distress, Well-nourished Eyes: YURI, EOMI, Conjunctiva clear ENT: Ears normal, Nose normal, Oropharynx normal Respiratory: Airway patent, Breath sounds clear, Breath sounds equal, Respirations nonlabored Cardiovascular: RRR, Pulses normal, No rub, No murmur GI/: Soft, Nontender, No masses, Bowel sounds normal, No Organomegaly Musculoskeletal: Normal strength, ROM intact, No edema, No calf tenderness Skin: Warm, Dry, Normal color Neurological: Sensation intact, Motor intact, Reflexes intact, Cranial nerves intact, Alert, Oriented Psychiatric: Affect appropriate, Mood appropriate Interpretation - Radiology Interpretation Radiology Interpretation By: Radiologist Radiology Results: Positive (thyroid nodule negative p.e.) Physician Notification - Case Discussed Physician Notified: pee GOLDMAN Time of Notification: 17:12 (ADMITT FULL ADMITT) Admit/Transition Orders Entered by ED Provider: Yes Admit To: Inpatient Critical Care Note - Critical Care Note Total Time (mins): 0 Course - Course Hematology/Chemistry: 01/06/19 14:30 01/06/19 14:30 Orders, Labs, Meds: Lab Review 01/06/19 01/06/19 01/06/19 14:30 14:30 14:30 WBC 7.25 RBC 4.98 Hgb 15.3 Hct 44.4 MCV 89.2 MCH 30.7 MCHC 34.5 RDW Coeff of Brianne 12.7 Plt Count 196 Immature Gran % (Auto) 0.3 Neut % (Auto) 48.9 Lymph % (Auto) 36.8 [place] % (Auto) 9.7 Eos % (Auto) 3.6 Baso % (Auto) 0.7 Immature Gran # (Auto) 0.0 Neut # (Auto) 3.6 Lymph # (Auto) 2.7 [place] # (Auto) 0.7 Eos # (Auto) 0.3 Baso # (Auto) 0.1 PT 9.1 L INR 0.91 APTT 23.1 L D-Dimer (Manual) Sodium 138.5 Potassium 3.77 Chloride 102.4 Carbon Dioxide 27.6 Anion Gap 12.27 BUN 12.6 Creatinine 0.66 Estimated GFR (MDRD) 91.00 BUN/Creatinine Ratio 19.09 Glucose 301.3 H Calcium 8.98 Total Bilirubin 0.43 AST 48.1 H ALT 53.8 H Alkaline Phosphatase 182.7 H Total Creatine Kinase 102.8 Troponin I < 0.012 Total Protein 7.27 Albumin 3.85 Globulin 3.42 Albumin/Globulin Ratio 1.12 01/06/19 14:30 WBC RBC Hgb Hct MCV MCH MCHC RDW Coeff of Brianne Plt Count Immature Gran % (Auto) Neut % (Auto) Lymph % (Auto) [place] % (Auto) Eos % (Auto) Baso % (Auto) Immature Gran # (Auto) Neut # (Auto) Lymph # (Auto) [place] # (Auto) Eos # (Auto) Baso # (Auto) PT INR APTT D-Dimer (Manual) 2437.66 Sodium Potassium Chloride Carbon Dioxide Anion Gap BUN Creatinine Estimated GFR (MDRD) BUN/Creatinine Ratio Glucose Calcium Total Bilirubin AST ALT Alkaline Phosphatase Total Creatine Kinase Troponin I Total Protein Albumin Globulin Albumin/Globulin Ratio Orders Category Date Time Status EKG-(ED ONLY) Stat CARDIO 01/06/19 14:32 Completed NPO REMINDER: IMAGING ONCE CARE 01/06/19 15:37 Active ED IV/MEDIPORT/POWERPORT .ONCE EMERGENCY 01/06/19 14:32 Active CBC W/ AUTO DIFF Stat LAB 01/06/19 14:30 Completed COMPREHENSIVE METABOLIC PANEL Stat LAB 01/06/19 14:30 Completed CREATINE KINASE Stat LAB 01/06/19 14:30 Completed D-DIMER Stat LAB 01/06/19 14:30 Completed PARTIAL THROMBOPLASTIN TIME Stat LAB 01/06/19 14:30 Completed PT WITH INR Stat LAB 01/06/19 14:30 Completed TROPONIN I Stat LAB 01/06/19 14:30 Completed 0.9 % Sodium Chloride [Saline Flush] MEDS 01/06/19 14:32 Active 1 syr IVF PRN PRN Aspirin [Aspirin Chewable] MEDS 01/06/19 14:35 Discontinued 324 mg PO ONCE STA CHEST, 1V AP ONLY Stat RADS 01/06/19 14:[address] CHEST PE PROTOCOL Stat RADS 01/06/19 15:37 Completed Medications Generic Name Dose Route Start Last Admin Trade Name Freq PRN Reason Stop Dose Admin Sodium Chloride 1 syr 01/06/19 14:32 Saline Flush IVF PRN PRN To flush IV Discontinued Medications Generic Name Dose Route Start Last Admin Trade Name Freq PRN Reason Stop Dose Admin Aspirin 324 mg 01/06/19 14:35 01/06/19 14:52 Aspirin Chewable PO 01/06/19 14:36 324 mg ONCE STA Administration Vital Signs: Temp Pulse Resp BP Pulse Ox 01/06/19 14:24 98.4 F 84 20 167/92 H 96 FOSTER Risk Score FOSTER Risk Score: Risk Score Odds of by 30D 0 0.1 (0.1-0.2) 1 0.3 (0.2-0.3) 2 0.4 (0.3-0.5) 3 0.7 (0.6-0.9) 4 1.2 (1.0-1.5) 5 2.2 (1.9-2.6) 6 3.0 (2.5-3.6) 7 4.8 (3.8-6.1) Departure - Departure Time of Disposition: 17:12 (admitted ) Disposition: ADMITTED INPATIENT Discharge Problem: Chest pain Condition: Good Pt referred to PMD for follow-up: Yes IPMP verified?: No Allergies/Adverse Reactions: Allergies latex Adverse Reaction (Verified 01/06/19 14:28) Home Medications: Ambulatory Orders Levothyroxine Sodium 25 mcg PO DAILY 04/28/18 Glyburide 5 mg PO BID 05/07/18 NPH, Human Insulin Isophane [Novolin N Insulin] 20 unit SQ BID vial 05/07/18 Insulin Regular, Human [Humulin R] 16 units SUBCUT BID vial 10/12/18 Insulin Regular, Human [Humulin R] 22 unit SQ INSULIN EVENING 10/12/18 Glyburide 10 mg PO 1700 01/06/19 Disposition Discussed With: Patient, Family
[2019-01-06 18:26] VITALS: BMI 50.5
[2019-01-06] MEDS: SODIUM CHLORIDE 1,000 ML IV SCH (18:29)
[2019-01-06] MEDS ORDERED: HUMULIN N SUBCUT SCH (21:00)
[2019-01-06] MEDS ORDERED: HUMULIN R SUBCUT SCH (21:00)
[2019-01-06] MEDS ORDERED: COREG PO SCH (21:00)
[2019-01-06] MEDS ORDERED: TORADOL IVP STA (21:01)
[2019-01-06] MEDS ORDERED: DECADRON 4 MG/ML SDV IM STA ×2 (21:02)
[2019-01-07] MEDS: SYNTHROID PO SCH ×2 (05:59)
[2019-01-07] MEDS ORDERED: DIABETA PO SCH ×2 (08:00)
[2019-01-07] MEDS ORDERED: HUMULIN R SUBCUT SCH (08:00)
[2019-01-07] MEDS: NORVASC PO SCH (08:42)
[2019-01-07] MEDS: HYDROCHLOROTHIAZIDE PO SCH (08:43)
[2019-01-07] MEDS: LOTENSIN PO SCH (08:44)
[2019-01-07] MEDS: COREG PO SCH ×2 (08:44→16:49)
[2019-01-07] MEDS: DIABETA PO SCH ×3 (08:44→16:49)
[2019-01-07] MEDS: ESTRADIOL PO SCH (08:45)
[2019-01-07] MEDS: HUMULIN R SUBCUT SCH ×3 (08:47→16:50)
[2019-01-07] MEDS: HUMULIN N SUBCUT SCH ×2 (08:49→20:19)
[2019-01-07] MEDS: SODIUM CHLORIDE 1,000 ML IV SCH (08:52)
--- NOTE | 2019-01-07 09:36 | PCM.PROG ---
Attending Provider: ATTENDING [facility] DATE OF SERVICE: 01/07/19 SUBJECTIVE: This 58 year old WHITE/ F was hospitalized 01/06/19 with chest pain. The patient has multiple risk factors for coronary artery disease. The patient still has chest pain which is fairly consistent, center of the chest and not related to exertion. REVIEW OF SYSTEMS: CONSTITUTIONAL: No night sweats. No fatigue, malaise, lethargy. No fever or chills. HEENT: Eyes: No visual changes. No eye pain. No eye discharge. ENT: No runny nose. No epistaxis. No sinus pain. No odynophagia. No congestion. RESPIRATORY: No cough, no congestion. No hemoptysis. No shortness of breath. CARDIOVASCULAR: No angina symptoms. No CHF symptoms. No atypical chest pain for CAD. No palpitations. No orthopnea.. GASTROINTESTINAL: No abdominal pain. No nausea or vomiting. No diarrhea or constipation. No hematemesis. No hematochezia. GENITOURINARY: No urgency. No frequency. No dysuria. No hematuria. No obstructive symptoms. No discharge. No pain. No significant abnormal bleeding. MUSCULOSKELETAL: No musculoskeletal pain; no joint swelling. NEUROLOGICAL: Awake, alert, oriented to time, place and person. No headache. No neck pain. No syncope. No seizures. No dizziness. PSYCHIATRIC: Not anxious. No depression. No suicidal thoughts. No homicidal thoughts. SKIN: No rash. No lesions. No wounds. ENDOCRINE: No unexplained weight loss. No weight gain. HEMATOLOGIC/LYMPHATIC: No anemia. No purpura. No petechiae. No prolonged or excessive bleeding. No palpable lymph nodes. PHYSICAL EXAMINATION: GENERAL: The patient is awake, alert and oriented, lying in bed in no distress. VITAL SIGNS: Temperature 97.6 F, Pulse 103, Respiratory Rate 22, BP 141/75, Pulse Ox 94% HEENT: Head normocephalic, atraumatic. Eyes: Extraocular muscles are intact. Pupils are equal, round and reactive to light and accommodation. Ears: No lesions. Nose appeared normal. Throat: No exudate or erythema. NECK: Supple. No JVD, no carotid bruit. No lymphadenopathy or thyromegaly. LUNGS: Clear to auscultation. Percussion note normal. Chest symmetrical. HEART: S1, S2, no S3. No murmurs. No cyanosis or clubbing. No ascites. Pulses: Dorsalis pedis and posterior tibial pulses +1 to +2 both sides. EKG sinus rhythm. Cardiac markers are negative. ABDOMEN: Soft. Non-tender. Bowel sounds active. No CVA tenderness. No mass felt. EXTREMITIES: No edema. Full range of motion of all extremities, equal. NEUROLOGIC: No focal deficit. Cranial nerves II through XII are grossly intact. No headache, no double vision or headache. SKIN: Warm and dry. Intact. Turgor-normal. LYMPHATIC: No palpable lymph nodes/no lymphedema. MUSCULOSKELETAL: Normal joints with no swelling. Muscle tone is normal. LAB REVIEW: 01/07/19 07:14 01/07/19 07:14 01/07/19 07:14: Sodium 137.5, Potassium 4.21, Chloride 102.5, Carbon Dioxide 25.7, Anion Gap 13.51, BUN 14.4, Creatinine 0.55 L, Estimated GFR (MDRD) 113.00 , BUN/Creatinine Ratio 26.18, Glucose 428.5 H D, Calcium 8.75, Total Bilirubin 0.61, AST 44.7 H, ALT 52.9 H, Alkaline Phosphatase 168.9 H, Total Creatine Kinase 99.7, Troponin I < 0.012, Total Protein 7.11, Albumin 3.74, Globulin 3.37 , Albumin/Globulin Ratio 1.10 01/07/19 07:14: WBC 7.19, RBC 5.10, Hgb 15.6, Hct 45.1, MCV 88.4, MCH 30.6, MCHC 34.6, RDW Coeff of Brianne 12.8, Plt Count 185, Immature Gran % (Auto) 0.4, Neut % (Auto) 76.2, Lymph % (Auto) 20.6, [place] % (Auto) 2.4, Eos % (Auto) 0.1, Baso % (Auto) 0.3, Immature Gran # (Auto) 0.0, Neut # (Auto) 5.5, Lymph # (Auto ) 1.5, [place] # (Auto) 0.2 L, Eos # (Auto) 0.0, Baso # (Auto) 0.0 01/06/19 23:21: Total Creatine Kinase 90.7, Troponin I < 0.012 01/06/19 14:30: D-Dimer (Manual) 2437.66 01/06/19 14:30: Sodium 138.5, Potassium 3.77, Chloride 102.4, Carbon Dioxide 27.6, Anion Gap 12.27, BUN 12.6, Creatinine 0.66, Estimated GFR (MDRD) 91.00, BUN/Creatinine Ratio 19.09, Glucose 301.3 H, Calcium 8.98, Total Bilirubin 0.43 , AST 48.1 H, ALT 53.8 H, Alkaline Phosphatase 182.7 H, Total Creatine Kinase 102.8, Troponin I < 0.012, Total Protein 7.27, Albumin 3.85, Globulin 3.42, Albumin/Globulin Ratio 1.12 01/06/19 14:30: PT 9.1 L, INR 0.91, APTT 23.1 L 01/06/19 14:30: WBC 7.25, RBC 4.98, Hgb 15.3, Hct 44.4, MCV 89.2, MCH 30.7, MCHC 34.5, RDW Coeff of Brianne 12.7, Plt Count 196, Immature Gran % (Auto) 0.3, Neut % (Auto) 48.9, Lymph % (Auto) 36.8, [place] % (Auto) 9.7, Eos % (Auto) 3.6, Baso % (Auto) 0.7, Immature Gran # (Auto) 0.0, Neut # (Auto) 3.6, Lymph # (Auto ) 2.7, [place] # (Auto) 0.7, Eos # (Auto) 0.3, Baso # (Auto) 0.1 ASSESSMENT: Please see below. 1. Chest pain, multiple risk factors for coronary artery disease PLAN: 1. Stress echo sestamibi 2. Education carried out about Coronary artery disease and risk factors and how to modify them. Plan and coordination of the patient's care discussed in the presence of Ed Case Manager and nurse. SCRIBED BY: WANDA GOLD, [employer] Management Intern[employer] scribed while in presence of [facility] 01/07/[facility] (0800)
--- NOTE | 2019-01-07 10:45 | US ---
EXAM: Thyroid ultrasound History: Follow-up thyroid nodules. Technique: Multiple sonographic images through the thyroid gland were obtained. Color duplex Dopple r was used to interrogate vascular flow. Findings: The right lobe of the thyroid measures 9.3 cm x 3.2 cm and demonstrates heterogeneous echotexture wit h a few solid nodules in the inferior pole and the largest measuring 2.4 cm. The thyroid isthmus measures 1.2 cm in thickness. The left lobe of the thyroid measures 8.9 cm x 3.2 cm x 2.4 cm demonstrates heterogeneous echotexture without discrete nodule identified. No extrathyroidal masses identified. The thyroid gland is slightly hypervascular. Impression: 1. Enlarged hypervascular thyroid gland. Correlate for thyroiditis or Graves disease. 2. Dominant 2.4 cm solid nodule within the inferior pole of the right thyroid lobe was not clearly s een on the prior study. Tissue sampling could be considered.
--- NOTE | 2019-01-07 11:55 | HP ---
DATE OF SERVICE: 01/06/19 REASON FOR HOSPITALIZATION: Chest pain. HISTORY OF PRESENT ILLNESS: 58-year-old white female hospitalized with chest pain which is in the center of the chest going through to the back, duration several hours prior to coming to the emergency room. The patient's pain was steady, questionable shortness of breath along with it. The patient has multiple risk factors for coronary artery disease like morbid obesity, hypertension, dyslipidemia, diabetes mellitus. The patient's is in the room. The patient recently had stress echo done in September which was negative for ischemia. PAST MEDICAL/SURGICAL HISTORY: Morbid obesity Hypertension Hypothyroidism Diabetes mellitus Dyslipidemia REVIEW OF SYSTEMS: CONSTITUTIONAL: No night sweats. No fatigue, malaise, lethargy. No fever or chills. HEENT: Eyes: No visual changes. No eye pain. No eye discharge. ENT: No runny nose. No epistaxis. No sinus pain. No sore throat. No odynophagia. No ear pain. No congestion. RESPIRATORY: No cough, no congestion. No hemoptysis. No shortness of breath. CARDIOVASCULAR: Chest pain in the center of the chest going through to the back at times with mild shortness of breath.. No angina symptoms. No CHF symptoms. No palpitations. No PND. No orthopnea. GASTROINTESTINAL: No abdominal pain. No nausea or vomiting. No diarrhea or constipation. No hematemesis. No hematochezia. GENITOURINARY: No urgency. No frequency. No dysuria. No hematuria. No obstructive symptoms. No discharge. No pain. No significant abnormal bleeding. MUSCULOSKELETAL: No musculoskeletal pain. No joint swelling. No arthritis. NEUROLOGICAL: No headache. No neck pain. No syncope. No seizures. No dizziness. PSYCHIATRIC: Not anxious. No depression. No suicidal thoughts. No homicidal thoughts. SKIN: No rash. No lesions. No wounds. ENDOCRINE: No unexplained weight loss. No weight gain. HEMATOLOGIC/LYMPHATIC: No anemia. No purpura. No petechiae. No prolonged or excessive bleeding. No palpable lymph nodes. PERSONAL/FAMILY/SOCIAL HISTORY: The patient is , lives with the , nonsmoker. No alcohol abuse. She works 40 hours, does all activity of daily living. No history of drug abuse. MEDICATIONS: Amlodipine Hydrochlorothiazide Levothyroxine Lovastatin NPH Carvedilol Estradiol Benazepril Insulin Glyburide ALLERGIES: LATEX PHYSICAL EXAMINATION: GENERAL: The patient is oriented to time, place and person. VITAL SIGNS: Temperature 97.7, pulse 72, respiratory rate 16, blood pressure 160/92, pulse ox 96%. HEENT: Head normocephalic, atraumatic. Eyes: Extraocular muscles are intact. Pupils are equal, round and reactive to light and accommodation. Ears: No lesions. Nose appeared normal. Throat: No exudate or erythema. NECK: Supple. No JVD, no carotid bruit. No lymphadenopathy or thyromegaly. LUNGS: Decreased breath sounds but clear to auscultation. Good air entry. No wheezing. Percussion note normal. Chest symmetrical. HEART: S1, S2, no S3. No murmurs. No cyanosis or clubbing. No ascites. Pulses: Dorsalis pedis and posterior tibial pulses +1 bilaterally. ABDOMEN: Soft. Nontender. Protuberant. No ascites. Bowel sounds active. No CVA tenderness. No mass felt. EXTREMITIES: Trace edema. Full range of motion of all extremities, equal. NEUROLOGIC: No focal deficit. Cranial nerves II through XII are grossly intact. No headache, no double vision or headache. GERIATRIC CASE MANAGER: Normal with normal deep tendon reflexes. Motor and sensory normal. SKIN: Not dry. Intact. Turgor - normal. LYMPHATIC: No palpable lymph nodes/no lymphedema. MUSCULOSKELETAL: Normal joints with no swelling. Muscle tone is normal. EKG sinus rhythm. No acute changes. Cardiac markers negative for acute myocardial event. D. dimer [id number] but CTA was negative for pulmonary embolism. Glucose 301. Mildly elevated liver enzymes consistent with fatty liver. Creatinine 0.6, BUN 12. Hemoglobin 15, hematocrit 44, WBC 7,000, normal differential. ASSESSMENT: 1. Chest pain, etiology unknown. The patient has multiple risk factors for coronary artery disease like morbid obesity, sedentary lifestyle, hypertension, diabetes mellitus, dyslipidemia. PLAN: 1. Hospitalize the patient. 2. Again review all the patient's previous records pertaining to her cardiac workup. At this time we may end up doing Stress Echo Sestamibi. We may repeat the echocardiogram depending upon EKG findings, telemetry findings and cardiac markers. CAD risk factors discussed with the patient. 3. Also counseling for weight loss done. CONDITION: Stable. TIME SPENT: More than 70 minutes. [facility]
[2019-01-07] MEDS ORDERED: MEVACOR PO SCH (17:00)
[2019-01-08] MEDS: SYNTHROID PO SCH ×2 (05:45)
[2019-01-08] MEDS ORDERED: TORADOL IVP STA (08:24)
[2019-01-08] MEDS ORDERED: DECADRON 4 MG/ML SDV IVP STA (08:24)
[2019-01-08] MEDS: LOTENSIN PO SCH (10:02)
[2019-01-08] MEDS: COREG PO SCH ×2 (10:05→16:44)
[2019-01-08] MEDS: HYDROCHLOROTHIAZIDE PO SCH (10:06)
[2019-01-08] MEDS: ESTRADIOL PO SCH (10:10)
[2019-01-08] MEDS: DIABETA PO SCH ×3 (10:12→16:43)
[2019-01-08] MEDS: NORVASC PO SCH (10:13)
[2019-01-08] MEDS: HUMULIN R SUBCUT SCH ×3 (10:18→16:45)
[2019-01-08] MEDS: HUMULIN N SUBCUT SCH ×2 (10:20→20:41)
[2019-01-08] MEDS: K-DUR PO SCH ×2 (10:23→16:44)
--- NOTE | 2019-01-08 11:11 | NM ---
Exam: Myocardial perfusion study. Date: 01/08/2019. Comparison: None. HISTORY: Chest pain. TECHNIQUE: The patient was exercised using the Diaz protocol. The patient exercised for 6 minutes and 3 seconds and achieved 4.0 mets. The patient achieved 78% of predicted maximum heart rate. The test was stopped due to left knee pain and shortness of breath. With the patient in maximum tolerate d treadmill stress, 32.1 mCi of technetium 99m sestamibi was injected and SPECT myocardial perfusion imaging begun within 60 minutes. For comparison, resting study was performed following injection of 3.5 mCi of thallium 201. FINDINGS: On the stress images in the apical anterior wall and apical inferolateral wall, there is d ecreased perfusion with reperfusion on delayed imaging. There is mild hypokinesis of the inferolater al wall. The LVEF is estimated at 54%. Impression: Submaximal exercise treadmill test; the patient only achieved 76% of predicted maximum h eart rate. The degree of ischemia may be the under reported as a consequence. Stress induced ischem ia involving the apical portions of the anteroseptal and inferolateral cornejo with mild hypokinesis of the inferolateral wall. The LVEF is estimated at 54%.
[2019-01-08] MEDS ORDERED: DIFLUCAN PO STA (14:06)
--- NOTE | 2019-01-08 14:14 | STECHOSEST ---
Date of Test: 01/08/2019 Ordering Physician: VERONICA UCLVER MD Occupation: BAIL BONDING AGENT Reason for Exam: HYPERTENSION, DYSLIPIDEMIA, CHEST PAIN Smoking History: NONE Height: 62" Weight: 276 Current Medications: LEVOTHYROXINE, AMLODIPINE, HYDROCHLOROTHIAZIDE, LOVASTATIN , GLYBURIDE, NOVOLIN N, SYNTHROID, ESTRADIOL, COREG, BENAZEPRIL HCL, HUMULIN R, Resting EKG: SINUS RHYTHM/ NO ACUTE CHANGES Target Heart Rate: 136 MAX: 160 S-T SEGMENT STAGE MPH/GRADE HEART RATE BPM BLOOD PRESSURE mmhg RHYTHM +/- ELEVATION DEPRESSION SYMPTOMS At Rest 70 138/62 SR X NONE 1 1.7/10% 106 168/70 SR X NONE 2 2.5/12% 122 162/68 SR X NONE 3 3.4/14% 4 4.2/16% 5 5.0/18% Immediately after 125 SR X L KNEE PAIN/SOB Minutes Post Exercise 5 80 142/70 SR X L KNEE PAIN/SOB Minutes Post Exercise Total Time: 6:03 Maximum Heart Rate Reached: 125 Reason for Termination: L KNEE PAIN/ SHORT OF BREATH 93% Oxygen saturation on room air with exercise Mets 4.0 INTERPRETATION 1. NO EVIDENCE OF ISCHEMIA BY ST-T WAVE FROM HEART RATE RESTING 70 BPM TO 125 BPM WITH EXERCISE 2. NO CHEST PAIN OR CHEST DISCOMFORT 3. NO ARRHYTHMIAS 4. BLOOD PRESSURE RESPONSE NORMAL NORMAL LEFT VENTRICULAR CONTRACTILITY RESTING/ POST EXERCISE. SESTAMIBI TO FOLLOW MTDD
--- NOTE | 2019-01-08 14:18 | ECHOSTRESS ---
Date of Exam: 01/08/2019 Ordering Physician: VERONICA CULVER MD Reason for Echo: HYPERTENSION, DYSLIPIDEMIA, CHEST PAIN, STRESS TEST-NO ISCHEMIA M-Mode Normal Adult Results LV Dimensions Normal Adult Results AoV Opening excursions >1.6 LVEDD-base- 3.5-5.8 Ao root dimensions 2.0-3.7 LVESD-base- 3.1-4.6 L. Atrium dimensions 1.9-3.8 Post. Wall thickness 0.8-1.1 IV septum (thickness) 0.7-1.2 Post. Wall excursion 0.72-1.3 Septal motion Systolic motion R. Ventricular cavity 1.5-2.0 LVEF 60% Paradoxical septal wall motion 2-D: NORMAL LEFT VENTRICULAR CONTRACTILITY RESTING/ POST EXERCISE M-MODE: MV: AV: TV: PV: CHAMBER SIZE: WALL MOTION: NORMAL LEFT VENTRICULAR CONTRACTILITY RESTING/ POST EXERCISE PERICARDIUM: INTERPRETATION: 1. NORMAL LEFT VENTRICULAR CONTRACTILITY RESTING/ POST EXERCISE MTDD
--- NOTE | 2019-01-08 14:28 | ECHO2D ---
Date of Exam: 01/08/2019 Ordering Physician: VERONICA CULVER MD Room #: 119 Reason for Echo: CHEST PAIN, HYPERTENSION, DYSLIPIDEMIA M-Mode Normal Adult Results LV Dimensions Normal Adult Results AoV Opening excursions >1.6 >1.6 LVEDD-base- 3.5-5.8 5.1 Ao root dimensions 2.0-3.7 2.9 LVESD-base- 3.1-4.6 L. Atrium dimensions 1.9-3.8 4.4 Post. Wall thickness 0.8-1.1 1.3 IV septum (thickness) 0.7-1.2 1.3 Post. Wall excursion 0.72-1.3 NORMAL Septal motion NORMAL Systolic motion R. Ventricular cavity 1.5-2.0 NORMAL LVEF 60% 48% Paradoxical septal wall motion NORMAL 2-D : ENLARGED LEFT ATRIAL SIZE. 2-D M Mode Echocardiogram was performed using apical four chamber and left parasternal long and short axis views. Mitral, tricuspid and aortic valves appear to be normal. Contractility of the left ventricle seems to be normal, so is the cavity size. Left atrial cavity size and aortic root appear to be normal. There is no pericardial effusion. There is no thrombus noted in the left ventricular or left aortic cavity. No mitral valve prolapse noted. M-MODE: MV: NORMAL AV: NORMAL TV: NORMAL PV: NORMAL CHAMBER SIZE: ENLARGED LEFT ATRIAL SIZE WALL MOTION: NORMAL PERICARDIUM: NORMAL INTERPRETATION: 1. LEFT VENTRICULAR HYPERTROPHY WITH ENLARGED LEFT ATRIAL CAVITY 2. NORMAL VALVES 3. NORMAL LEFT VENTRICULAR CONTRACTILITY SESTAMIBI TO FOLLOW MTDD
[2019-01-08] MEDS: ASPIRIN EC PO SCH (14:47)
[2019-01-08] MEDS ORDERED: TYLENOL PO STA (16:48)
[2019-01-08] MEDS: CRESTOR PO SCH (20:40)
[2019-01-08] MEDS ORDERED: LIPITOR PO SCH (21:00)
[2019-01-09] MEDS: SYNTHROID PO SCH ×2 (05:44→05:45)
[2019-01-09] MEDS: NORVASC PO SCH (08:31)
[2019-01-09] MEDS: LOTENSIN PO SCH (08:31)
[2019-01-09] MEDS: ASPIRIN EC PO SCH (08:31)
[2019-01-09] MEDS: DIABETA PO SCH ×3 (08:31→17:06)
[2019-01-09] MEDS: K-DUR PO SCH ×2 (08:32→17:07)
[2019-01-09] MEDS: COREG PO SCH ×2 (08:32→17:06)
[2019-01-09] MEDS: ESTRADIOL PO SCH (08:32)
[2019-01-09] MEDS: HYDROCHLOROTHIAZIDE PO SCH (08:32)
[2019-01-09] MEDS: HUMULIN R SUBCUT SCH ×3 (08:33→17:07)
[2019-01-09] MEDS: HUMULIN N SUBCUT SCH ×2 (08:34→20:25)
[2019-01-09] MEDS: CRESTOR PO SCH (20:23)
[2019-01-09] MEDS: TORADOL IVP PRN (21:26)
[2019-01-10] MEDS: SYNTHROID PO SCH ×2 (06:11)
[2019-01-10] MEDS: LOTENSIN PO SCH (08:24)
[2019-01-10] MEDS: DIABETA PO SCH ×3 (08:24→17:40)
[2019-01-10] MEDS: ASPIRIN EC PO SCH (08:24)
[2019-01-10] MEDS: NORVASC PO SCH (08:24)
[2019-01-10] MEDS: HUMULIN R SUBCUT SCH ×3 (08:25→17:27)
[2019-01-10] MEDS: K-DUR PO SCH ×2 (08:25→17:26)
[2019-01-10] MEDS: COREG PO SCH ×2 (08:25→17:27)
[2019-01-10] MEDS: HYDROCHLOROTHIAZIDE PO SCH (08:25)
[2019-01-10] MEDS: HUMULIN N SUBCUT SCH ×2 (08:31→20:51)
[2019-01-10] MEDS: ESTRADIOL PO SCH (08:32)
[2019-01-10] MEDS: TORADOL IVP PRN (11:12)
[2019-01-10] MEDS: CRESTOR PO SCH (20:50)
[2019-01-11 05:00] VITALS: BP 139/79; TEMP 98.1
[2019-01-11] MEDS: SYNTHROID PO SCH ×2 (05:42→05:43)
[2019-01-11] MEDS: TORADOL IVP PRN (05:48)
[2019-01-11] MEDS: HYDROCHLOROTHIAZIDE PO SCH (08:14)
[2019-01-11] MEDS: LOTENSIN PO SCH (08:14)
[2019-01-11] MEDS: NORVASC PO SCH (08:14)
[2019-01-11] MEDS: DIABETA PO SCH (08:14)
[2019-01-11] MEDS: ASPIRIN EC PO SCH (08:15)
[2019-01-11] MEDS: COREG PO SCH (08:15)
[2019-01-11] MEDS: K-DUR PO SCH (08:15)
[2019-01-11] MEDS: ESTRADIOL PO SCH (08:16)
[2019-01-11] MEDS: HUMULIN N SUBCUT SCH (08:17)
[2019-01-11] MEDS: HUMULIN R SUBCUT SCH (08:22)
--- NOTE | 2019-01-11 08:26 | DS ---
DATE OF SERVICE: 01/11/19 FINAL DIAGNOSIS: 1. CHEST PAIN WITH POSITIVE STRESS SESTAMIBI FOR REVERSIBLE ISCHEMIA. 2. DIABETES MELLITUS, INSULIN DEPENDENT. 3. DYSLIPIDEMIA. 4. HYPERTENSION 5. MORBID OBESITY DISCHARGE INSTRUCTIONS: The patient is being transferred to [facility] for cardiac catheterization. MEDICATIONS AT DISCHARGE: Enteric-Coated Aspirin 81 mg p.o. daily Amlodipine 2.5 mg daily Lotensin 40 mg p.o. daily HCTZ 12.5 mg daily Glyburide 5 mg p.o. twice a day Crestor 20 mg daily Synthroid 225 mcg p.o. daily Insulin Regular Humulin 22 and 16 units twice a day Humulin N 20 units SubQ b.i.d. Coreg 25 mg twice a day Estradiol 1 mg daily K-Dur 20 mEq twice a day NEW PRESCRIPTIONS: None DISCONTINUED MEDICATIONS: None DIET INSTRUCTIONS: ADA 1800 calorie Heart Healthy ACTIVITY: Ad deonte SMOKING: Former smoker DISEASE SPECIFIC EDUCATION: CAD risk factors Transfer to [facility] for Cardiac Cath LABS: 01/11/19 04:58: Sodium 140.1, Potassium 4.53, Chloride 101.5, Carbon Dioxide 33.0 H, Anion Gap 10.13, BUN 19.3 H, Creatinine 0.84, Estimated GFR (MDRD) 69.00 , BUN/Creatinine Ratio 22.97, Glucose 251.1 H, Calcium 9.11, Total Bilirubin 0.37, AST 48.8 H, ALT 56.2 H, Alkaline Phosphatase 172.7 H, Total Protein 6.27 L , Albumin 3.25 L, Globulin 3.02, Albumin/Globulin Ratio 1.07 01/11/19 04:58: WBC 7.59, RBC 4.77, Hgb 14.7, Hct 43.5, MCV 91.2, MCH 30.8, MCHC 33.8, RDW Coeff of Brianne 12.8, Plt Count 184, Immature Gran % (Auto) 0.3, Neut % (Auto) 40.0, Lymph % (Auto) 44.0, [place] % (Auto) 11.1 H, Eos % (Auto) 3.7 , Baso % (Auto) 0.9, Immature Gran # (Auto) 0.0, Neut # (Auto) 3.0, Lymph # ( Auto) 3.3, [place] # (Auto) 0.8, Eos # (Auto) 0.3, Baso # (Auto) 0.1 HOSPITAL COURSE: This 58 year old WHITE/ F was hospitalized 01/06/19 with chest pain. The patient's EKG and cardiac markers were negative. Stress echo negative for ischemia but Stress Sestamibi was positive for reversible ischemia involving anteroseptal and inferolateral wall. The patient has no symptoms of CHF. Chest pain usually is at rest. The patient is being followed by an janitorial supervisor, Dr. Rey, in [place], [place] for the past one year. During the patient' s stay in the hospital her Lovastatin was discontinued and started on Crestor 20 mg. CAD risk factors were discussed with the patient and how to modify them. She is advised further evaluation with cardiac catheterization to which she agreed. We will transfer to [facility] if accepted. Condition is stable. TIME SPENT: More than 60 minutes. SCRIBED BY: BRI MULLEN Fire Marshal scribed while in presence of service performed by Dr. BRANDON [facility] on 01/11/19 ([id number]) [facility]
--- NOTE | 2019-01-11 08:34 | PCM.PROG ---
Attending Provider: [facility]ENDING PROVID[facility] DATE OF SERVICE: 01/11/19 SUBJECTIVE: This 58 year old WHITE/ F was hospitalized 01/06/19 with chest pain. Stress Sestamibi positive for reversible ischemia for anteroseptal and inferolateral wall. Condition stable. The patient had chest pain twice during stay in hospitalization. It seems atypical for coronary insufficiency. The patient has multiple risk factors for CAD like hypertension, dyslipidemia, morbid obesity and diabetes. REVIEW OF SYSTEMS: CONSTITUTIONAL: No night sweats. No fatigue, malaise, lethargy. No fever or chills. HEENT: Eyes: No visual changes. No eye pain. No eye discharge. ENT: No runny nose. No epistaxis. No sinus pain. No odynophagia. No congestion. RESPIRATORY: No cough, no congestion. No hemoptysis. No shortness of breath. CARDIOVASCULAR: No angina symptoms. No CHF symptoms. No atypical chest pain for CAD. No palpitations. No orthopnea.. GASTROINTESTINAL: No abdominal pain. No nausea or vomiting. No diarrhea or constipation. No hematemesis. No hematochezia. GENITOURINARY: No urgency. No frequency. No dysuria. No hematuria. No obstructive symptoms. No discharge. No pain. No significant abnormal bleeding. MUSCULOSKELETAL: No musculoskeletal pain; no joint swelling. NEUROLOGICAL: Awake, alert, oriented to time, place and person. No headache. No neck pain. No syncope. No seizures. No dizziness. PSYCHIATRIC: Not anxious. No depression. No suicidal thoughts. No homicidal thoughts. SKIN: No rash. No lesions. No wounds. ENDOCRINE: No unexplained weight loss. No weight gain. HEMATOLOGIC/LYMPHATIC: No anemia. No purpura. No petechiae. No prolonged or excessive bleeding. No palpable lymph nodes. PHYSICAL EXAMINATION: GENERAL: The patient is awake, alert and oriented, lying/sitting in bed in no distress. VITAL SIGNS: Temperature 98.1 F, Pulse 72, Respiratory Rate 18, BP 139/79, Pulse Ox 96% HEENT: Head normocephalic, atraumatic. Eyes: Extraocular muscles are intact. Pupils are equal, round and reactive to light and accommodation. Ears: No lesions. Nose appeared normal. Throat: No exudate or erythema. NECK: Supple. No JVD, no carotid bruit. No lymphadenopathy or thyromegaly. LUNGS: Clear to auscultation. Percussion note normal. Chest symmetrical. HEART: S1, S2, no S3. No murmurs. No cyanosis or clubbing. No ascites. Pulses: Dorsalis pedis and posterior tibial pulses +1 to +2 both sides. ABDOMEN: Soft. Non-tender. Bowel sounds active. No CVA tenderness. No mass felt. EXTREMITIES: No edema. Full range of motion of all extremities, equal. NEUROLOGIC: No focal deficit. Cranial nerves II through XII are grossly intact. No headache, no double vision or headache. SKIN: Warm and dry. Intact. Turgor-normal. LYMPHATIC: No palpable lymph nodes/no lymphedema. MUSCULOSKELETAL: Normal joints with no swelling. Muscle tone is normal. LAB REVIEW: 01/11/19 04:58 01/11/19 04:58 01/11/19 04:58: Sodium 140.1, Potassium 4.53, Chloride 101.5, Carbon Dioxide 33.0 H, Anion Gap 10.13, BUN 19.3 H, Creatinine 0.84, Estimated GFR (MDRD) 69.00 , BUN/Creatinine Ratio 22.97, Glucose 251.1 H, Calcium 9.11, Total Bilirubin 0.37, AST 48.8 H, ALT 56.2 H, Alkaline Phosphatase 172.7 H, Total Protein 6.27 L , Albumin 3.25 L, Globulin 3.02, Albumin/Globulin Ratio 1.07 01/11/19 04:58: WBC 7.59, RBC 4.77, Hgb 14.7, Hct 43.5, MCV 91.2, MCH 30.8, MCHC 33.8, RDW Coeff of Brianne 12.8, Plt Count 184, Immature Gran % (Auto) 0.3, Neut % (Auto) 40.0, Lymph % (Auto) 44.0, [place] % (Auto) 11.1 H, Eos % (Auto) 3.7 , Baso % (Auto) 0.9, Immature Gran # (Auto) 0.0, Neut # (Auto) 3.0, Lymph # ( Auto) 3.3, [place] # (Auto) 0.8, Eos # (Auto) 0.3, Baso # (Auto) 0.1 ASSESSMENT: Please see below. 1. Chest pain with positive Stress Sestamibi for reversible ischemia. PLAN: 1. Transfer the patient for possible cardiac catheterization. 2. The patient is being followed by breeding manager in [place]. Plan and coordination of the patient's care discussed in the presence of Child Care Director and nurse. CONDITION: STABLE SCRIBED BY: BRI MULLEN Quality Control Clerk scribed while in presence of service performed by Dr. ROMA [facility] on 01/11/19 ([id number])
--- NOTE | 2019-01-11 09:14 | PN ---
BILLING 01/06/19 ADMISSION DAY LEVEL 5 01/07/19 INTERMEDIATE 01/08/19 INTERMEDIATE 01/09/19 INTERMEDIATE 01/10/19 INTERMEDIATE 01/11/19 TRANSFER TO [facility]
--- NOTE | 2019-01-11 09:15 | CM.DICTOOL ---
ADMISSION: 01/06/19 17:36 DISCHARGE: 01/11/19 DATE OF SERVICE: 01/11/19 FINAL DIAGNOSIS REVERSIBLE ISCHEMIA TO ANTEROSEPTAL AND INFEROLATERAL HEART RIZVI WITH STRESS SESTAMIBI CHEST PAIN / ANGINA THYROID NODULES HYPERTENSION DYSLIPIDEMIA DIABETES MELLITUS (DR. STEPHANIE GÓMEZ, [place]) MORBID OBESITY COPD HYPOTHYROID (DR. STEPHANIE GÓMEZ, TERRANCE) HEPATIC STEATOSIS HX. HEPATITIS B CHOLECYSTECTOMY, 1996 HYSTERECTOMY HEART CATH, 2004 LAST VITALS Temp Pulse Resp BP Pulse Ox 98.1 F 72 18 139/79 96 01/11/19 04:59 01/11/19 04:59 01/11/19 04:59 01/11/19 04:59 01/11/19 04:59 TAKE THESE MEDICATIONS AT HOME Amlodipine Besylate (Norvasc) 2.5 mg PO DAILY [facility] Last Admin: 01/11/19 08:14 Dose: 2.5 mg Aspirin (Aspirin Ec) 81 mg PO DAILYWM [facility] Last Admin: 01/11/19 08:15 Dose: 81 mg Benazepril HCl (Lotensin) 40 mg PO DAILY [facility] Last Admin: 01/11/19 08:14 Dose: 40 mg Carvedilol (Coreg) 25 mg PO BIDWM [facility] Last Admin: 01/11/19 08:15 Dose: 25 mg Estradiol (Estradiol) 1 mg PO DAILY [facility] Last Admin: 01/11/19 08:16 Dose: 1 mg Glyburide 5mg PO BID Last Admin: 01/11/19 0815 Dose: 5mg Hydrochlorothiazide (Hydrochlorothiazide) 12.5 mg PO DAILY [facility] Last Admin: 01/11/19 08:14 Dose: 12.5 mg Insulin Human NPH (Humulin N) 20 unit SUBCUT BID [facility] Last Admin: 01/11/19 08:17 Dose: 20 unit Insulin Human Regular (Humulin R) 22 unit SUBCUT INSULIN EVENING [facility] Last Admin: 01/10/19 17:27 Dose: 22 unit Insulin Human Regular (Humulin R) 16 unit SUBCUT 0800,1200 [facility] Last Admin: 01/11/19 08:22 Dose: 16 unit Ketorolac Tromethamine (Toradol) 30 mg IVP Q8H PRN PRN Reason: MODERATE PAIN Last Admin: 01/11/19 05:48 Dose: 30 mg Levothyroxine Sodium (Synthroid) 225 mcg PO DAILY@0630 [facility] Last Admin: 01/11/19 05:42 Dose: 25 mcg Potassium Chloride (K-Dur) 20 meq PO BIDWM [facility] Stop: 01/13/19 08:29 Last Admin: 01/11/19 08:15 Dose: 20 meq Rosuvastatin Calcium (Crestor) 20 mg PO BEDTIME [facility] Last Admin: 01/10/19 20:50 Dose: 20 mg ALLERGIES atorvastatin [From Lipitor] Adverse Reaction (Intermediate, Verified 01/08/19 14 :27) latex Adverse Reaction (Verified 01/06/19 14:28) DISCONTINUED MEDICATIONS Lovastatin NEW PRESCRIPTIONS: NONE SMOKING: FORMER SMOKER DISEASE SPECIFIC EDUCATION: CHEST PAIN CORONARY ARTERY DISEASE DIABETES MELLITUS HEART HEALTHY AND DIABETIC DIET FOLLOW-UP APPOINTMENTS LAB REVIEW: 01/11/19 04:58 01/11/19 04:58 01/11/19 04:58: Sodium 140.1, Potassium 4.53, Chloride 101.5, Carbon Dioxide 33.0 H, Anion Gap 10.13, BUN 19.3 H, Creatinine 0.84, Estimated GFR (MDRD) 69.00 , BUN/Creatinine Ratio 22.97, Glucose 251.1 H, Calcium 9.11, Total Bilirubin 0.37, AST 48.8 H, ALT 56.2 H, Alkaline Phosphatase 172.7 H, Total Protein 6.27 L , Albumin 3.25 L, Globulin 3.02, Albumin/Globulin Ratio 1.07 01/11/19 04:58: WBC 7.59, RBC 4.77, Hgb 14.7, Hct 43.5, MCV 91.2, MCH 30.8, MCHC 33.8, RDW Coeff of Brianne 12.8, Plt Count 184, Immature Gran % (Auto) 0.3, Neut % (Auto) 40.0, Lymph % (Auto) 44.0, [place] % (Auto) 11.1 H, Eos % (Auto) 3.7 , Baso % (Auto) 0.9, Immature Gran # (Auto) 0.0, Neut # (Auto) 3.0, Lymph # ( Auto) 3.3, [place] # (Auto) 0.8, Eos # (Auto) 0.3, Baso # (Auto) 0.1 PLAN: TRANSFER TO [facility] TODAY, 01/11/19. ACCEPTING MD: DR. SALES ROOM TO BE ASSIGNED UPON ARRIVAL PER TRANSFER CENTER NURSE. DIET: ADA 1800 GAB HEART HEALTHY DIET ACTIVITY: UP AD LEVI FOLLOW-UP APPOINTMENT: FOLLOW-UP WITH DR. SALES AND DR. CULVER WITHIN ONE WEEK OF DISCHARGE FROM [facility]. FOLLOW-UP WITH DR. BROWN (UI SOFTWARE ENGINEER - [place], [place]) 01/20/19 SCHEDULED. CODE STATUS: FULL CODE MRS. SOUZA IS AWAKE, ALERT AND ORIENTED SITTING UP IN CHAIR THIS MORNING, WITH LEGS DEPENDENT. PT DENIES THE PRESENCE OF ANY PAIN. 1+ EDEMA PRESENT TO BLE, PT REQUIRES FREQUENT REMINDERS AND TEACHING TO KEEP BLE ELEVATED. DISCUSSED PLAN TO TRANSFER TO [facility] FOR POSSIBLE HEART CATH DUE TO POSITIVE NUCLEAR MEDICINE STRESS TEST SHOWING IRREVERSIBLE ISCHEMIA TO ANTEROSEPTAL AND INFEROLATERAL HEART RIZVI. PT HAS MULTIPLE RISK FACTORS FOR CORONARY ARTERY DISEASE SUCH MORBID OBESITY, DIABETES MELLITUS, HYPERTENSION, AND DYSLIPIDEMIA. PT AGREEABLE TO THIS PLAN. PT STATES SHE DOES NOT HAVE A CURRENT GLASS PRESSER WITH [facility]. PT STATES SHE DOES CURRENTLY SEE AN UI SOFTWARE ENGINEER IN [place], [place], DR. BROWN - NEXT SCHEDULED FOLLOW UP IS . BLOOD GLUCOSE LEVELS CONTINUE TO RANGE FROM 180-400, PT CONTINUES TO REQUEST ADDITIONAL SNACKS. LUNG SOUNDS CLEAR, PT IS ON ROOM AIR. BOWEL SOUNDS ACTIVE, ABDOMEN SOFT AND NON-TENDER. LAST BM 01/09/19. PT EXPERIENCES URINARY STRESS INCONTINENCE AT TIMES. INDEPENDENT WITH ADLS, SKIN WARM DRY AND INTACT. MD FRAN WANG, CHEMICAL ETCH OPERATOR
--- NOTE | 2019-01-12 10:34 | PN ---
DATE OF SERVICE: 01/09/19 SUBJECTIVE: 58 year old white female hospitalized with chest pain. The patient's stress sestamibi was positive for reversible ischemia. The patient doesn't have any chest pain for past 48 hours. She is asymptomatic for coronary insufficiency. No symptoms of CHF. All the reports discussed with the patient including echocardiogram report which practically has not been changed. REVIEW OF SYSTEMS: CONSTITUTIONAL: No night sweats. No fatigue, malaise, lethargy. No fever or chills. HEENT: Eyes: No visual changes. No eye pain. No eye discharge. ENT: No runny nose. No epistaxis. No sinus pain. No sore throat. No odynophagia. No congestion. RESPIRATORY: No cough, no congestion. No hemoptysis. No shortness of breath. CARDIOVASCULAR: No angina symptoms. No CHF symptoms. No atypical chest pain for CAD. No palpitations. No PND. No orthopnea. GASTROINTESTINAL: No abdominal pain. No nausea or vomiting. No diarrhea or constipation. No hematemesis. No hematochezia. GENITOURINARY: No urgency. No frequency. No dysuria. No hematuria. No obstructive symptoms. No discharge. No pain. No significant abnormal bleeding. MUSCULOSKELETAL: No musculoskeletal pain; no joint swelling. NEUROLOGICAL: No headache. No neck pain. No syncope. No seizures. No dizziness. PSYCHIATRIC: Not anxious. No depression. No suicidal thoughts. No homicidal thoughts. SKIN: No rash. No lesions. No wounds. ENDOCRINE: No unexplained weight loss. No weight gain. HEMATOLOGIC/LYMPHATIC: No anemia. No purpura. No petechiae. No prolonged or excessive bleeding. No palpable lymph nodes. PHYSICAL EXAMINATION: VITAL SIGNS: Temperature 97.8, pulse 68, respiratory rate 16, blood pressure 160/82 and pulse ox 92%. HEENT: Head normocephalic, atraumatic. Eyes: Extraocular muscles are intact. Pupils are equal, round and reactive to light and accommodation. Ears: No lesions. Nose appeared normal. Throat: No exudate or erythema. NECK: Supple. No JVD, no carotid bruit. No lymphadenopathy or thyromegaly. LUNGS: Decreased breath sounds but clear to auscultation. Percussion note normal. Chest symmetrical. HEART: S1, S2, no S3. No murmurs. No cyanosis or clubbing. No ascites. Pulses: Dorsalis pedis and posterior tibial pulses +1 to +2 bilaterally. ABDOMEN: Soft. Nontender. Bowel sounds active. No CVA tenderness. No mass felt. EXTREMITIES: No edema. Full range of motion of all extremities, equal. NEUROLOGIC: No focal deficit. Cranial nerves II through XII are grossly intact. No headache, no double vision or headache. SKIN: Not dry. Intact. Turgor - normal. LYMPHATIC: No palpable lymph nodes/no lymphedema. MUSCULOSKELETAL: Normal joints with no swelling. Muscle tone is normal. LABS: Hgb 14.9, hct 43, WBC 8,400 normal differential, creatinine 0.6, BUN 17, Estimated GFR 98cc per minute. ASSESSMENT: 1. Positive stress sestamibi with reversible ischemia with history of chest pain with multiple coronary artery disease risk factors. PLAN: 1. Continue Imdur 2. Alpha Beta Keyla 3. Itz inhibitor 4. CAD risk factors discussed and how to modify them. 5. The patient needs cardiac catheterization TIME SPENT: More than 30 minutes. Plan and coordination of the patient's care discussed in the presence of nurse. HOLDEN
--- NOTE | 2019-01-12 10:55 | PN ---
DATE OF SERVICE: 01/10/19 SUBJECTIVE: The patient was seen and examined today. 58 year old white female hospitalized with chest pain. The patient underwent stress sestamibi which was positive for reservable ischemia, anteroseptal and inferolateral wall. The patient is asymptomatic. Yesterday she had chest pain going through to the back more like esophageal spasm. There was no ST-T wave change. The patient's is in the room. REVIEW OF SYSTEMS: CONSTITUTIONAL: No night sweats. No fatigue, malaise, lethargy. No fever or chills. HEENT: Eyes: No visual changes. No eye pain. No eye discharge. ENT: No runny nose. No epistaxis. No sinus pain. No sore throat. No odynophagia. No congestion. RESPIRATORY: No cough, no congestion. No hemoptysis. No shortness of breath. CARDIOVASCULAR: No angina symptoms. No CHF symptoms. No atypical chest pain for CAD. No palpitations. No PND. No orthopnea. GASTROINTESTINAL: No abdominal pain. No nausea or vomiting. No diarrhea or constipation. No hematemesis. No hematochezia. GENITOURINARY: No urgency. No frequency. No dysuria. No hematuria. No obstructive symptoms. No discharge. No pain. No significant abnormal bleeding. MUSCULOSKELETAL: No musculoskeletal pain; no joint swelling. NEUROLOGICAL: No headache. No neck pain. No syncope. No seizures. No dizziness. PSYCHIATRIC: Not anxious. No depression. No suicidal thoughts. No homicidal thoughts. SKIN: No rash. No lesions. No wounds. ENDOCRINE: No unexplained weight loss. No weight gain. HEMATOLOGIC/LYMPHATIC: No anemia. No purpura. No petechiae. No prolonged or excessive bleeding. No palpable lymph nodes. PHYSICAL EXAMINATION: VITAL SIGNS: Temperature 97.6, pulse 60, respiratory rate 20, blood pressure 137/70 and pulse ox 95%. HEENT: Head normocephalic, atraumatic. Eyes: Extraocular muscles are intact. Pupils are equal, round and reactive to light and accommodation. Ears: No lesions. Nose appeared normal. Throat: No exudate or erythema. NECK: Supple. No JVD, no carotid bruit. No lymphadenopathy or thyromegaly. LUNGS:Decreased breath sounds but clear to auscultation. Percussion note normal. Chest symmetrical. HEART: S1, S2, no S3. No murmurs. No cyanosis or clubbing. No ascites. Pulses: Dorsalis pedis and posterior tibial pulses +1 to +2 bilaterally. ABDOMEN: Soft. Nontender. Bowel sounds active. No CVA tenderness. No mass felt. EXTREMITIES: No edema. Full range of motion of all extremities, equal. NEUROLOGIC: No focal deficit. Cranial nerves II through XII are grossly intact. No headache, no double vision or headache. SKIN: Not dry. Intact. Turgor - normal. LYMPHATIC: No palpable lymph nodes/no lymphedema. MUSCULOSKELETAL: Normal joints with no swelling. Muscle tone is normal. ASSESSMENT: 1. Chest pain with positive stress sestamibi for reversible ischemia 2. Diabetes mellitus 3. Hypertension 4. Dyslipidemia 5. Morbid obesity PLAN: 1. Education carried out about the coronary artery disease, risk factors and advised the patient to under go cardiac catheterization to which she has agreed. 2. The patient has been put on Crestor 20mg. CONDITION: Stable. TIME SPENT: More than 30 minutes. Plan and coordination of the patient's care discussed in the presence of nurse. HOLDEN
== END 2019-01-11 10:50 | disposition home or self-care (01) | DRG 303 ==
LOC: ED 14:23 → MEDSURG B 17:36
PROVIDERS: ADMIT Internal Medicine; ATTEND Internal Medicine
DX: I99.8 Other disorder of circulatory system (principal); I10 Essential (primary) hypertension; E78.5 Hyperlipidemia, unspecified; E11.8 Type 2 diabetes mellitus with unspecified complications; E66.01 Morbid (severe) obesity due to excess calories; R53.81 Other malaise; R05 Cough; R06.02 Shortness of breath; M54.9 Dorsalgia, unspecified; Z79.4 Long term (current) use of insulin
CPT/HCPCS: 36415; 80053; 82550; 82962; 84484; 85025; 85379; 85610; 85730; 93005; 93010; 99284

== ENCOUNTER 2021-06-11 13:51 | Inpatient (IN) ==
[2021-06-11] MEDS ORDERED: VENTOLIN HFA (PER PUFF-WITH SPACER) IH ONE (14:14)
[2021-06-11] MEDS ORDERED: ATROVENT HFA INHALER (PER PUFF-WITH SPACER) IH ONE (14:14)
[2021-06-11] MEDS ORDERED: SOLU-MEDROL 125 MG IVP ONE (14:14)
[2021-06-11 14:24] LABS: ABG O2 HGB 84.1 % (95-100); ABG PH 7.43 (7.35-7.45); BEecf 6.9 (-2.0-3.0); COHb 1.8 (0.5-1.5); HCO3 31.2 (21-28); MetHb 0.8 (0-1.5); TCO2 32.6 (19-24); sO2 83.9 % (94-98); tHb 14.9 g/dl (11.7-17.4)
[2021-06-11] MEDS ORDERED: MUCINEX PO ONE (14:33)
[2021-06-11 14:40] LABS: BASOPHILS % (AUTO) 0.2 % (0.0-3.0); EOSINOPHILS % (AUTO) 0.2 % (0.0-7.0); HEMATOCRIT 44.7 % (37.0-47.0); IMMATURE GRANULOCYTE % (AUTO) 0.4 % (0.0-5.0); LYMPHOCYTES # (AUTO) 1.4 K/uL (0.60-3.4); LYMPHOCYTES % (AUTO) 26.9 (10.0-50.0); MEAN CORPUSCULAR HEMOGLOBIN 31.1 pg (27.0-31.0); MEAN CORPUSCULAR HGB CONC 33.6 (31.8-35.4); MEAN CORPUSCULAR VOLUME 92.5 fl (81.0-99.0); MONOCYTES # (AUTO) 0.7 K/uL (0.4-2.0); MONOCYTES % (AUTO) 13.5 (0-10); NEUTROPHILS # (AUTO) 3.1 K/ul (2.0-6.9); NEUTROPHILS % (AUTO) 58.8 % (42.2-75.2); PLATELET COUNT 170 10^3/uL (140-440); RDW COEFFICIENT OF VARIATION 12.7 % (11.6-14.8); RED BLOOD COUNT 4.83 10^6/ul (4.20-5.40)
[2021-06-11] MEDS ORDERED: MUCINEX ONE (14:47)
[2021-06-11 14:51] LABS: ALBUMIN 3.68 g/dL (3.5-5.0); ALKALINE PHOSPHATASE 96.1 U/L (53-141); BILIRUBIN,TOTAL 0.68 mg/dL (0.2-1.3); CALCIUM 8.82 mg/dL (8.4-10.2); CARBON DIOXIDE 33.6 mmol/L (22-30.0); CHLORIDE 98.8 mmol/L (98-107); CREATININE 0.66 mg/dL (0.60-1.30); GLUCOSE 348.2 mg/dL (74-106); POTASSIUM 3.81 mmol/L (3.5-5.1); SODIUM 135.7 mmol/L (134.5-145)
[2021-06-11 15:05] LABS: MOLECULAR FLU A NEGATIVE BY NAAT (NEGATIVE); MOLECULAR FLU B NEGATIVE BY NAAT (NEGATIVE)
[2021-06-11 15:07] LABS: TROPONIN I < 0.012 ng/ml (0.0000-0.120)
--- NOTE | 2021-06-11 16:28 | CT ---
EXAM: CT chest without contrast. HISTORY: Hypoxia. COMPARISON: CT 07/14/2019. TECHNIQUE: Multiple axial images of the chest were obtained without intravenous contrast. Images we re reformatted in the sagittal and coronal planes. FINDINGS: Goiter is partially imaged. Multiple prominent mediastinal lymph nodes. Limited assessment for lymphadenopathy without contrast. Heart enlarged. Aortic and coronary artery calcifications present. Small pericardial effusion. Nodular ground-glass opacities and areas of consolidation in both lungs. No pleural effusion or pneu mothorax. Calcified granulomatous changes noted. The limited images of the upper abdomen demonstrate cirrhotic liver morphology. There is no acute osseous abnormality. IMPRESSION: 1. Bilateral pneumonia. 2. Cardiomegaly, atherosclerosis and small pericardial effusion. All CT scans are performed using dose optimization techniques as appropriate to the performed exam an d include at least one of the following: Automated exposure control, adjustment of the mA and/or kV according t o size, and the use of iterative reconstruction technique.
[2021-06-11] MEDS ORDERED: TYLENOL PO PRN ×2 (17:24→17:42)
--- NOTE | 2021-06-11 17:28 | PCM ---
Chief Complaint Chief Complaint: SOA, COVID, Pneumonia. History of Present Illness History of Present Illness: 60-year-old female presented to the emergency room today with worsening shortness of breath. I was contacted right around 5:00 this evening b shannon Sam noting patient had arrived 1355 and c/o SOA. Temperature was 99.3, pulse 104 respirations 26 blood pressure 183/65. Patient met SIRS criteria and had a pulse ox of 82%. Symptoms present for 3 to 4 days still present worsening constant moderate, dyspnea at rest dyspnea on exertion unable to lie flat on the back due to history of COPD. Cough wheezing chest pain labored breathing rep orted. Symptoms are worse with activity. Differential included CHF COPD pneumonia SARS bronchitis bronchospasm upper respiratory. Empiric antibiotic azithromycin was given in the emergency room Rocephin was not given in the emergency room. Review of systems suggested fatigue weakness shortness of breath wheezing. Former smoker tobacco greater than 10 years. Patient is high school graduate. Surgical history reviewed gallbladder removal and hysterectomy. Significant hyperglycemia noted. No D-dimer was collected. No ferritin was collected. Labs in the emergency room showed white blood cell count 5.20, hemoglobin 15, hematocrit 44.7, platelets 170,000. Coags not done, ABG pH 7.43, PCO2 was 47, PO2 47, HCO3 31.2 total CO2 32.6. Indepdent evaluate suggests that this is a mixeed respiratory acidosis/metabolic alkalosis. Metabolic panel showed sodium 135.7, potassium 3.1, BUN 18, creatinine 0.66, glucose 348.2 with a A1c within the last 30 days of 8.17. Calcium 8.82, AST 61, ALT 65, NT proBNP of 441 troponin less than 0.012 vitamin D was significantly low back in May 04, 2019 0.6. Lactic acid today 1.78. COVID was positive today flu was negative. Medicine reconciliation was completed by me. We will continue her benazepril as ITZ inhibitor's have been shown to improve outcomes. We will continue carvedilol 25 mg twice daily we will continue the Norvasc but we will increase this to 10 mg daily, we will hold the fenofibrate, we will continue the gabapentin, we will hold the ibuprofen as outcomes have been worse with NSAIDs I will continue the Prilosec for GI prophylaxis she is using this twice daily. We will continue her Tresiba insulin at 160 units I will hold her Apidra we will continue the levothyroxine [address] chest without contrast bilateral pneumonia cardiomegaly atherosclerosis and small pericardial effusion. Patient's body mass index is greater than 50 and we will provide Lovenox 40 mg subcutaneous twice daily. There was no ferritin no D-dimer no CRP, no INR. I have added labs and I will follow-up with the patient. Repeat vitals at 1724 heart rate 80 markedly improved from the 104 at 1415, respiratory rate 18 improved from 26, O2 94% on 4 L oxygen, blood pressure 181/91. I will provide a clonidine 0.1x1 and change the Norvasc as noted. I reviewed the adult intake patient began having symptoms last Friday with vomiting fever diarrhea cough shortness of air today became extremely short of air. Vitals blood pressure 183/65, pulse 104, respiratory rate 26, temp 99.3 and O2 saturation 82% on room air. Pain 0. 5 foot 2 280 pounds body mass index of greater than 50. No recent travel contact with COVID individual. Patient has had fever 100 or greater cough difficulty breathing sore throat. COVID testing was positive as noted above. Patient does meet systemic inflammatory response to SIRS. Evidence of pneumonia. She has been started on azithromycin 500 we will do 3 days and Rocephin 1 g we will do 5 days. Complicating factors include hypertension, diabetes thyroid disease and COPD. We will check a TSH in the morning. Past family social history and surgical history were reviewed. Patient was seen in June 07, 2021 by Alba Mcclure APRN, I reviewed that note today. Televisit fever 100.7 diarrhea went away after a day cough congestion runny nose sore throat and sneezing. Denies any loss of taste or smell headache or body aches. It appears the symptoms started on June 05, 2021. Temperature elevation 100.7, sore throat and has underlying history of COPD and bronchitis. No history of pneumonia vaccine has had da silva vaccine but not the booster. Has not had the flu vaccine and never gets these. Cough reported as nonproductive. Was not using anything for cough and congestion. No known exposures. 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 had not been at work last week due to illness. Body aches all the time. Does not typically use inhalers. COVID and flu testing were recommended and ordered on June 07. REVIEW OF SYMPTOMS: (Positives bolded) General: weight loss,fever, chills,night sweats, fatigue, appetite loss, Loss of taste/smell HEENT: blurry vision, eye pain, eye discharge, dry eyes, decreased vision, sore throat tinnitus, bloody nose, hearing loss,sinus pain/pressure,ear pain/pressure. Respiratory: shortness of breath, cough,hemoptysis,wheezing,pleurisy, Cardiovascular:chest pain, PND, palpitation, edema,orthopnea,syncope, swelling of extremities Gastro: Nausea, vomiting,diarrhea, hematemesis, abdominal pain, constipation Genito:hematuria, dysuria, glycosuria, hesitancy, frequency, incontinence Musckelo:Arthralgia, myalgia, muscle weakness, joint swelling, NSAID use Skin:rash, pruritis, sores, nail changes, skin thickening, change in wart/mole, itching, Neuro: Migraine, numbness, ataxia, tremor, vertigo,weakness,memory loss, Irritability,dizziness Endocrine:excessive thirst, polyuria, cold intolerance, heat intolerance, goiter, +DM Psychiatric:depression,anxiety,alcohol abuse, drug abuse, insomnia,change in sleep patternand mood changes Heme/lymph:easy bruising, bleeding gums, blood clots, swollen glands, lymphedema, Allergic/immune:allergic rhinitis, hay fever, asthma, hives, +COPD Vital Signs - 24 hr 06/11/21 14:15 06/11/21 17:24 Temperature 99.3 F Pulse Rate 104 H 80 Respiratory Rate 26 H 18 Blood Pressure 183/65 H 181/91 H O2 Sat by Pulse Oximetry 82 L 94 L Constitutional:Appearance-Moderate respiratory distress, tachypneic, fragmented sentences, Consistent with stated age.Orientation- Oriented x 3, alertBuild and Nutrition-[Class 3 Obesity, extreme BMI >60]General- Patient is pleasant and cooperative with the interview and exam. Scared, rapid breathing/tachypnea, shallow inspiration. Desaturation with leaning forward/movement. Integumentary: General-No rashes, ulcers or lesions.Palpation- Dry skin worse distal to knees. Lymphedematous changes. Skin is warm to touch, appropriate. Capillary refill is normal bilateral Upper and lower extremity. Head/Neck:Head- normocephalic and atraumatic.Neck- without visible/palpable lumps or pulsations.Palpation- No bony tenderness about head/neck along frontal, occipital, temporal, parietal, mastoid, jawline, zygoma, orbit or any other location. NO temporal artery tenderness. No TMJ tenderness. Neck Supple.Thyroid-No thyromegaly, no nodules. +Nasal Canula. O2 improved from 82 to 94. . Eye:Bilaterally PERRLA, EOMI. No discharge. Upper and lower eyelids are normal. Sclera/conjunctiva normal without discharge. Cornea is normal and clear. Lens is normal. Eyeball appears normal. No ciliary flushing, no conjunctival injection. ENMT:Pinna- normal without tenderness or erythema.External auditory canal Left-normal without erythema or discharge, no excessive cerumen.External auditory canal Right-normal without erythema or discharge, no excessive cerumen.TM left- Gagnon/pearly, normal light reflex and anatomyTM Right- Gagnon/pearly, normal light reflex and anatomyHearing Assessment-normal to conversational speech.Nose and sinus- No sinus tenderness along frontal/maxillary region. External appearance normal and midline.Nares- bilateral quiet airflow, no discharge.Nasal mucosa- No bleeding noted and no ulcerations observed. [place], moist. Turbinates non boggy.Lips-normal color, moist without cracks/lesionsOral Cavity/Palate- hard/soft palate intact without lesions, oral mucosa pink and moist. Tongue normal midline.Oropharynx- no pharyngeal erythema, Uvula midline. No post nasal drip. No exudate.Salivary glands- Non tender to palpation CHEST/LUNG:Inspection- Large/barrel chest, symmetrical. NO chest wall deform ity. Increased effort, distress moderate, use of accessory muscles w/ abdominal breathing.Palpation- nontender sternum, ribline. No abnormal pulsations. Auscultation- Breath sounds diminished throughout all lung auguste. tracheal sounds, bronchial sounds overlying sternum, Bronchovessicular sounds between scapulae posteriorly, vessicular breath sounds heard throughout periphery. Lungs scattered rhonchi, distant rales, pectoriloquy + bilaterally and along lower lobes ?consolidation c/w imaging noted.Adventitious sounds- wheezes, rales, rhonchi present, poor aeration. CARDIOVASCULAR:Carotid artery-normal, no bruits or abnormal pulsations. Jugular vein- no pulsations.Palpation/Percussion- Normal PMI, no palpable thrillAuscultation- Regular rate and rhythm. No murmur noted in sitting, supine positions.Extremities- no digital clubbing, cyanosis, edema, increased warmth. ABDOMEN:Inspection- normal and no visible pulsations. Normal contour. Auscultation- Bowel sounds normal, no abdominal bruits.Palpation/Percussion- soft, non-tender, no rebound tenderness, no rigidity (guarding), no jar tenderness, no masses.Liver-no hepatomegaly,Spleen no splenomegaly,Hernias - none.Rectalnot examined. Peripheral Vascular:Upper extremityLeft- Normal temperature with pink nailbeds and no ulcerations.Upper extremity Right-Normal temperature with pink nailbeds and no ulcerations.Lower extremity- Normal temperature with pink nailbeds and no ulcerations. DP pulses 2+ bilaterally. Pedal hair reduced. Lymphedematous changes bilateral LE. Thickened skin, 2+ pedal edema, dependent. Thickened coarse skin. "This is not new for me." Musculoskeletal:Generalized-No generalized swelling or edema of extremities, no digital clubbing or cyanosis, neurovascularly intact all four extremities. Upper extremity- Symmetrical posture. No visible deformity. Normal sensation along medial and lateral upper extremity proximally and distally. NO tenderness overlying shoulder, lateral/medial epicondyle. Cofounder 5/5 and strength 5/5 bilateral UE. Elbow palpated, no tenderness overlying olecranon. Normal supination, pronation to active/passive ROM and to resisted rotation. Bicep insertion/tricep insertion appear normal without obvious pathology. Rotator cuff evaluated and intact. Normal wrist ROM bilaterally. Normal hand movement, intrinsic muscles of hands normal. No tenderness to palpation of hands/ wrists/elbows. Lower extremity- Hip: Not tender to palpation, no pain, no swelling, edema or erythema of surrounding tissue, normal strength and tone. Normal appearing hip ROM bilaterally without pain. Knee: Knee ROM normal. No tenderness overlying trochanters, no tenderness about patella, quad tendon, patellar tendon. No tenderness at tibial tuberosity. Ankle: normal ROM not tender to palpation along medial/lateral malleolus. Spine/Ribs- No deformities, masses or tenderness, no known fractures, normal strength, Normal ROM. Normal stability No tenderness along C/T/L spine. Normal appearing ROM about spine. Neurological:General- Moves all 4 extremities symmetrically. Symmetrical face and body posture.Cranial nerves- individually evaluated II-XII and intact. PERRLA, Normal EOMI, visual/special senses appear intact, Face is symmetrical and normal sensation/movement, normal tongue, normal strength/posture of neck musculature.Reflexes- intact with DTR 2+ patellar, Achilles, bicep, brachial, tricep. Ankle clonus normal with 2 beats.Strength-5/5 bilateral UE and LE. Soft touch- intact bilateral UE and LE.Temperature sensation-intact bilateral UE and LE Neuropsych:Oriented- Person, place, time. (AAOx3),Mood/affect- normal and congruent. Able to articulate well.Speech-Normal speech, normal rate, normal tone, normal use of language, volume and coherence.Thought content- normal with ability to perform basic computations and apply abstract thought/reason. Associations- intact, no SI/HI, no hallucinations, delusions, obsessions. Judgment/insight- Appropriate.Memory-Recall intact, remote and recent memory intact.Knowledge- Age appropriate fund of knowledge, concentration and attention span normal. Lymphatic: Head/Neck- normal size and non tender to palpation.Axillary- normal size and non tender to palpation.Femoral and Inguinal- normal size and non tender to palpation. Allergies Allergies Allergy/AdvReac Type Severity Reaction Status Date / Time atorvastatin [From Lipitor] AdvReac Intermediate Unknown Verified 06/07/21 13:23 latex AdvReac Unknown Verified 06/07/21 13:23 metformin AdvReac Diarrhea Verified 06/07/21 13:23 [facility] Medical History Colonoscopy refused COPD (chronic obstructive pulmonary disease) Diabetes mellitus Fatigue Hyperlipidemia Hypertension Hypothyroidism Vitamin D deficiency Surgical History History of surgery Status post cholecystectomy Status post hysterectomy Family History FATHER Lung cancer Liver cancer Mother Ovarian cancer Heart attack Diabetes Social History Smoking and tobacco status: Former smoker Tobacco: How many years used: 10 Second hand smoke exposure: Yes Alcohol intake: never Substance use type: does not use Counseling given: No Renetta/bahai: sikh Special renetta needs: No Agree to transfusion: No Adopted: No Household members: spouse Marital status: M Lives independently: No Highest education level completed: high school graduate Financial difficulty paying for basics: not applicable service: No Current occupational status: employed Current occupation: [employer] Current occupational exposures/hazards: Yes Pets and animals: Yes Leisure activites: games and other History of recent travel: No Do you think of yourself as: straight/heterosexual Current gender identity: female Seatbelt use: always Helmet use: No Drives intoxicated or rides with intoxicated armored car driver: No Water heater temperature set < 120 degrees: Yes Working smoke detector in home: Yes Fire extinguisher in home: Yes Carbon monoxide detector in home: Yes Firearms in home: Yes Firearms unloaded and locked: Yes Medications Medications: Medications Generic Name Dose Route Start Last Admin Trade Name Freq PRN Reason Stop Dose Admin Sodium Chloride 1 syr 06/11/21 14:14 06/11/21 14:38 0.9% Sodium Chloride 10 Ml Disp.Syrin IVF 1 syr PRN PRN Administration To flush IV Body Composition Body Mass Index (BMI): 51.2 Lab/Tests/Diagnostic Imaging Lab/Tests/Diagnostic Imaging: Lab Review 06/11/21 06/11/21 06/11/21 14:15 14:20 14:20 WBC 5.20 RBC 4.83 Hgb 15.0 Hct 44.7 MCV 92.5 MCH 31.1 H MCHC 33.6 RDW Coeff of Brianne 12.7 Plt Count 170 Immature Gran % (Auto) 0.4 Neut % (Auto) 58.8 Lymph % (Auto) 26.9 [place] % (Auto) 13.5 H Eos % (Auto) 0.2 Baso % (Auto) 0.2 Neut # (Auto) 3.1 Lymph # (Auto) 1.4 [place] # (Auto) 0.7 Eos # (Auto) 0.0 Baso # (Auto) 0.0 Immature Gran # (Auto) 0.0 Puncture Site Base Excess O2 Saturation ABG pH ABG pCO2 ABG pO2 ABG HCO3 ABG Total CO2 Froilan Test Hemoglobin Oxyhemoglobin Carboxyhemoglobin Total Hemoglobin FiO2 % Sodium 135.7 Potassium 3.81 Chloride 98.8 Carbon Dioxide 33.6 H Anion Gap 7.11 BUN 18.0 H Creatinine 0.66 Estimated GFR (MDRD) 91.00 BUN/Creatinine Ratio 27.27 Glucose 348.2 H Lactic Acid Calcium 8.82 Total Bilirubin 0.68 AST 61.0 H ALT 65.0 H Alkaline Phosphatase 96.1 Troponin I < 0.012 NT-Pro-B Natriuret Pep 441.000 H Total Protein 7.00 Albumin 3.68 Globulin 3.32 Albumin/Globulin Ratio 1.10 Influ A Molecular Assay Influ B Molecular Assay SARS CoV-2 RNA Rapid JAVIER Positive H 06/11/21 06/11/21 06/11/21 14:21 14:30 14:40 WBC RBC Hgb Hct MCV MCH MCHC RDW Coeff of Brianne Plt Count Immature Gran % (Auto) Neut % (Auto) Lymph % (Auto) [place] % (Auto) Eos % (Auto) Baso % (Auto) Neut # (Auto) Lymph # (Auto) [place] # (Auto) Eos # (Auto) Baso # (Auto) Immature Gran # (Auto) Puncture Site R rad Base Excess 6.9 H O2 Saturation 83.9 L ABG pH 7.43 ABG pCO2 47.0 H ABG pO2 47.0 L* ABG HCO3 31.2 H ABG Total CO2 32.6 H Froilan Test Yes Hemoglobin 0.8 Oxyhemoglobin 84.1 L Carboxyhemoglobin 1.8 H Total Hemoglobin 14.9 FiO2 % 21.0 Sodium Potassium Chloride Carbon Dioxide Anion Gap BUN Creatinine Estimated GFR (MDRD) BUN/Creatinine Ratio Glucose Lactic Acid 1.78 Calcium Total Bilirubin AST ALT Alkaline Phosphatase Troponin I NT-Pro-B Natriuret Pep Total Protein Albumin Globulin Albumin/Globulin Ratio Influ A Molecular Assay Negative by naat Influ B Molecular Assay Negative by naat SARS CoV-2 RNA Rapid JAVIER Orders Category Date Time Status ABG DRAW REQUEST Stat CARDIO 06/11/21 14:15 Completed EKG-(ED ONLY) Stat CARDIO 06/11/21 14:14 Completed METERED DOSE INHALATION Routine CARDIO 06/11/21 14:14 Completed Saline Lock [ED IV/MEDIPORT/POWERPORT] .ONCE EMERGENCY 06/11/21 14:14 Active ABG COOX Stat LAB 06/11/21 14:21 Completed CBC W/ AUTO DIFF Stat LAB 06/11/21 14:20 Completed COMPREHENSIVE METABOLIC PANEL Stat LAB 06/11/21 14:20 Completed FLU A/B MOLECULAR Stat LAB 06/11/21 14:40 Completed LACTIC ACID Stat LAB 06/11/21 14:30 Completed MOLECULAR GROUP A STREP Stat LAB 06/11/21 14:40 Completed NT-PROBNP Stat LAB 06/11/21 14:20 Completed TROPONIN I Stat LAB 06/11/21 14:20 Completed 0.9 % Sodium Chloride [Saline Flush] MEDS 06/11/21 14:14 Active 1 syr IVF PRN PRN Albuterol Inhaler(with Spacer) [Ventolin Hfa (Per Puff- MEDS 06/11/21 14:14 Discontinued with Spacer)] 4 puff IH ONCE ONE Guaifenesin [Mucinex] MEDS 06/11/21 14:47 Discontinued 600 mg .ROUTE .STK-MED ONE Guaifenesin [Mucinex] MEDS 06/11/21 14:33 Discontinued 600 mg PO ONCE ONE Ipratropium Inhaler(Spacer) [Atrovent Hfa Inhaler (Per MEDS 06/11/21 14:14 Discontinued Puff-with Spacer)] 4 puff IH ONCE ONE Methylprednisolone Sod Succ/Pf [Solu-Medrol 125 mg] MEDS 06/11/21 14:14 Discontinued [address] CHEST W/O CONTRAST Stat RADS 06/11/21 14:14 Completed Medications Generic Name Dose Route Start Last Admin Trade Name Freq PRN Reason Stop Dose Admin Sodium Chloride 1 syr 06/11/21 14:14 06/11/21 14:38 0.9% Sodium Chloride 10 Ml Disp.Syrin IVF 1 syr PRN PRN Administration To flush IV Discontinued Medications Generic Name Dose Route Start Last Admin Trade Name Freq PRN Reason Stop Dose Admin Albuterol Sulfate 4 puff 06/11/21 14:14 06/11/21 14:53 Albuterol Sulfate (Ventolin Hfa) 18 Gm 1 Puff With Spacer IH 06/11/21 14:15 4 puff ONCE ONE Administration Guaifenesin 600 mg 06/11/21 14:33 06/11/21 14:38 Guaifenesin 600 Mg Tablet.Er PO 06/11/21 14:34 600 mg ONCE ONE Administration Ipratropium Blackey 4 puff 06/11/21 14:14 06/11/21 14:54 Ipratropium Blackey 12.9 Gm Hfa Inhaler Per Puff With Spacer IH 06/11/21 14:15 4 puff ONCE ONE Administration Methylprednisolone Sodium Succinate 125 mg 06/11/21 14:14 06/11/21 14:38 Methylprednisolone Sod Succ/Pf 125 Mg/2 Ml Vial IVP 06/11/21 14:15 125 mg ONCE ONE Administration Imaging: IMPRESSION: 1. Bilateral pneumonia. 2. Cardiomegaly, atherosclerosis and small pericardial effusion. ABG Interpretation: Mixed pattern. Plan Plan: COVID+/Pneumonia/SIRS/Hypoxia: 60-year-old female admitted to the hospital 06/11/2021 with acute COVID hypoxia. CT showed bilateral pneumonia. She required O2 via nasal cannula but did not require high flow oxygen. Lactate level was negative. Blood cultures were collected as well as sputum culture per ER. The patient was given a dose of azithromycin in the emergency room and Rocephin was ordered but not given until she reached the floor. Patient was significantly hypoxic. She was put on oxygen and this improved. Her port score was 92 points based on age respiratory rate greater than 30 glucose significantly elevated greater than 250 and partial pressure of oxygen less than 60 on ABG. Her risk class of 4 provided a mortality benefit of 8.2 to 9.3% and hospitalization inpatient was recommended. The patient has had 2 vaccines but not boosted. We discussed the risk benefits and alternatives to remdesivir, dexamethasone and oxygen. The patient is a diabetic who is not controlled and we will likely have some issues with sugar control while in the hospital. However steroids are needed. My goal will be to have a blood glucose of less than 120 while in the hospital however if I can keep this less than 180-200 I will be happy. We have reviewed the patient's health, we have reviewed the patient's medications and medicine reconciliation has been completed. Significant risk factors include diabetes that is poorly controlled, underlying COPD morbid obesity hypertension hyperlipidemia history of angina vitamin D deficiency. Please see orders below. We discussed at length COVID and the need for oxygen. We will get her set up for oxygen at home if needed. For now she is doing just fine on nasal cannula with low-flow oxygen. Despite this the risks and benefits of dexamethasone and remdesivir are less then the risks of not using them. I have encouraged her to use these. She is full code. We reviewed this together today. - Admit inpatient Status: Dr. Alfred. - daily labs: CBC/CMP/Ferritin/INR/CRP/abg - O2 titrate >89%. - Remdesivir day 0/5 (will start am 06/13/21) - Dexamethasone 6mg IV day 1 - Azithromycin 500mg IV day 1 - Rocephin 1000mg IV day 1 Zofran 4mg IV PRN q 6 hours - Tylenol for pain/fever - No NSAIDS - Continue home meds (held estradiol as stroke risk/SD risk/clot risk is elevated) - Blood culture pending - Sputum culture pending Today: - Add Ddimer - A1C - TSH Diabetes: A1C 05/04/21 was 8.17. Is 7.95 here. Will start with the 160 units of tresiba, sliding scale to continue. I will likely increase to 180 units in next 1-2 days and ease the burden of the SSI. The patient is on high dose insulin. She did not receive any of this on June 11 and we will make sure we give this to her in the hospital. I may need to change to every 2 hour Accu-Cheks and correct due to severe hyperglycemia from steroids. We will monitor overnight. HTN: Chronic process. Resumed home meds to include the Itz-I. Goal <140 SBP. Increased norvasc to 10mg daily. Clonidine 0.1mg added for now. Monitor overnight. HLD: Continue statin. Statin use ideally would be changed to crestor. Allergy to lipitor. Lovostatin is not ideal for this patient. Consider change to crestor as outpatient as high potency statin likely beneficial. Hypovitaminosis D: Continue home treatment dosing regimen of weekly 50,000 units. Last levels 19.6 on 05/04/21. Hypothyroid: Last TSH was 2.910 on 12/06/20. Goal TSH 1-3. Continue Levothyroxine home dose 274mcg daily. Goal status unknown. TSH ordered. DVT Prophy: 40mg subcutaneous BID lovenox Class 3 obesity. Class 3 Obesity: Discussed the federal guidelines suggest a healthy goal BMI of 18.5-24.9 for people 18 65 and 23-30 for people age 65 and older. Overweight is considered BMI 25-30, Obesity 30-40 and Morbid obesity is defined as >100 lb overweight or BMI >40. With a BMI above goal, it is recommended to utilize a diet/exercise program to get back into the appropriate range. Consider referral to speech pathology teacher. For BMI >40 consider referral to bariatrics. If not already monitoring intake. I would recommend at least to keep a food diary. Document everything that is consumed into a food diary. Studies have shown that patients can lose up to 2x the weight by keeping track of foods. Offered handout on weight loss techniques. Apps that may be of benefit include [employer] Pal, Lose it. Regular exercise encouraged. Start with walking 5-10 minutes at a pace that is difficult to carry a conversation. If chest pain/SOA stop and f/u in office Diet: ADA 2000 calories GI prophy: Continue PPI. Established/Chronic problem. 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 Disposition: 60 yr old CF HD 1 admitted 06/11/21 with COVID pneumonia and numerous risk factors. We will admit the patient to the SCU we will set her up on telemetry. We will complete azithromycin 500 mg 3 days. She has received 1 dose in the ER we will continue this for another 2 days. Rocephin was not given in the emergency room but we will set this up for her to be received while in the hospital. We will start remdesivir 200 mg day 1 but this must be started in the morning tomorrow due to lack of pharmacy support at this hour. We did discuss the risk benefits and alternatives to the remdesivir. She will receive a total of 5 days of this. We will start dexamethasone 6 mg IV. We will monitor hyperglycemia and we will treat accordingly. Discussed case with ER provider, reviewed previous OV, reviewed labs, reviewed ABG, reviewed imaging. Admission time 74 minutes.
[2021-06-11] MEDS ORDERED: VEKLURY 200 MG in SODIUM CHLORIDE 250 ML IV ONE (17:29)
[2021-06-11] MEDS ORDERED: ZITHROMAX PO SCH (17:30)
[2021-06-11] MEDS ORDERED: ZOFRAN 4 MG/2 ML IVP PRN (17:43)
[2021-06-11] MEDS ORDERED: [UNRECOGNIZED DRUG - OTHER] SUBCUT SCH (17:45)
[2021-06-11] MEDS ORDERED: INSULIN DEGLUDEC 100 UNIT/ML SUBCUT SCH (17:45)
[2021-06-11] MEDS ORDERED: CATAPRES PO ONE (17:48)
[2021-06-11 17:56] LABS: PROTHROMBIN TIME 9.9 SEC (9.3-11.0)
[2021-06-11] MEDS ORDERED: DECADRON IVP SCH (18:00)
[2021-06-11] MEDS ORDERED: DECADRON IM SCH (18:00)
[2021-06-11] MEDS ORDERED: DRISDOL PO SCH (18:00)
[2021-06-11] MEDS: ATROVENT HFA INHALER (PER PUFF-WITH SPACER) IH SCH (19:50)
[2021-06-11] MEDS: VENTOLIN HFA (PER PUFF-WITH SPACER) IH PRN (19:50)
[2021-06-11 19:51] VITALS: BMI 59.3
[2021-06-11] MEDS ORDERED: VENTOLIN HFA (PER PUFF-WITH SPACER) IH SCH (20:00)
[2021-06-11] MEDS ORDERED: ROCEPHIN 1 GM/50 ML D5W 1 GM/50 ML BAG IV ONE (20:12)
[2021-06-11] MEDS ORDERED: HUMALOG SUBCUT ONE (20:13)
[2021-06-11] MEDS ORDERED: CATAPRES ONE (20:26)
[2021-06-11] MEDS: LOVENOX SUBCUT SCH (20:37)
[2021-06-11] MEDS: DECADRON IV SCH (20:38)
[2021-06-11] MEDS: MEVACOR PO SCH (20:46)
[2021-06-11] MEDS: NORVASC PO SCH (20:46)
[2021-06-11] MEDS: LOTENSIN PO SCH (20:46)
[2021-06-11] MEDS: NEURONTIN PO SCH (20:46)
[2021-06-11] MEDS ORDERED: PRILOSEC PO SCH (21:00)
[2021-06-11] MEDS ORDERED: NEURONTIN PO SCH (21:00)
[2021-06-11] MEDS ORDERED: COREG PO SCH (21:00)
[2021-06-11] MEDS: HUMALOG SUBCUT PRN (23:01)
--- NOTE | 2021-06-11 23:58 | ED.PDOC ---
General ED Provider: Dr. MARYANN SINGLETARY MD Chief Complaint: Shortness of Air Stated Complaint: increasing SOB x 3 days. Time Seen by Provider: 06/11/21 13:55 Mode of Arrival: Wheelchair Information Source: Patient Exam Limitations: No limitations Primary Care Provider: KADEN PUGH APRN Nursing and Triage Documentation Reviewed and Agree: Yes Does patient meet sepsis criteria?: No If yes, has appropriate treatment been initiated?: No System Inflammatory Response Syndrome: Not Applicable Sepsis Protocol: For patient's 13 years and over: Temp is 96.8 and below OR 101 and greater Pulse >90 BPM Resp >20/minute Acutely Altered Mental Status Are patient's symptoms suggestive of a new infection, such as: -Pneumonia -Skin, Soft Tissue -Endocarditis -UTI -Bone, Joint Infection -Implantable Device -Acute Abdominal Infection -Wound Infection -Meningitis -Blood Stream Catheter Infection -Unknown Respiratory Complaint Exam Shortness of Air Complaint/Exam Onset/Duration: 4 days Symptoms Are: Still present Timing: Constant Initial Severity: Mild Current Severity: Moderate Character: Reports Dyspnea at rest and Dyspnea on exertion Aggravating: Reports None Alleviating: Reports None Associated Signs and Symptoms: Reports Cough, Wheezing, Chest pain and Labored breathing Related History: Reports Similar episode History of Healthcare-Acquired Pneumonia: No Pulmonary Embolism Risk Factors: Reports Smoking Cardiac Risk Factors: Reports Smoking, Diabetes and Hypertension Home Oxygen Use: No Recent Stress Test: No Recent Echo/LV Function: No Respiratory Distress: Mild Stridor Present: No Tracheal Deviation: No Subcutaneous Emphysema: No Accessory Muscle Use: Yes Retractions: Intercostal Diminished Breath Sounds: No Unable to Speak Full Sentences: No Fatigue: No Leg Swelling: No Sarah's Sign Present: No Grunting Respirations: No Kussmaul Respirations: No Differential Diagnoses: CHF, COPD Exacerbation, Pneumonia, SARS, Bronchitis, Bronchospasm and URI Quality Indicators For Pneumonia/CAP: SpO2 assessed and Empiric Antibiotic Rx Review of Systems Review Of Systems Constitutional: Reports Malaise and Weakness Eyes: Reports No symptoms Ears, Nose, Mouth, Throat: Reports No symptoms Respiratory: Reports Short of air and Wheezing GI: Reports Nausea : Reports No symptoms Musculoskeletal: Reports No symptoms Skin: Reports No symptoms Neurological: Reports No symptoms Endocrine: Reports No symptoms Hematologic/Lymphatic: Reports No symptoms All Other Systems: Reviewed and Negative [facility] Medical History Colonoscopy refused COPD (chronic obstructive pulmonary disease) Diabetes mellitus Fatigue Hyperlipidemia Hypertension Hypothyroidism Vitamin D deficiency Family History FATHER Lung cancer Liver cancer Mother Ovarian cancer Heart attack Diabetes Social History Smoking and tobacco status: Former smoker Tobacco: How many years used: 10 Second hand smoke exposure: Yes Alcohol intake: never Substance use type: does not use Counseling given: No Renetta/synagogue: jain Special renetta needs: No Agree to transfusion: No Adopted: No Household members: spouse Marital status: M Lives independently: No Highest education level completed: high school graduate Financial difficulty paying for basics: not applicable service: No Current occupational status: employed Current occupation: [employer] Current occupational exposures/hazards: Yes Pets and animals: Yes Leisure activites: games and other History of recent travel: No Do you think of yourself as: straight/heterosexual Current gender identity: female Seatbelt use: always Helmet use: No Drives intoxicated or rides with intoxicated lifter/driver: No Water heater temperature set < 120 degrees: Yes Working smoke detector in home: Yes Fire extinguisher in home: Yes Carbon monoxide detector in home: Yes Firearms in home: Yes Firearms unloaded and locked: Yes Surgical History History of surgery Status post cholecystectomy Status post hysterectomy Female Reproductive History Menstrual Hx Hysterectomy: Yes Hx Tubal Ligation: No Physical Exam Physical Exam Appearance: Reports Ill-appearing, No pain distress and Obese Ill-appearing: Mild Pain Distress: None Eyes: Reports YURI, EOMI and Conjunctiva clear ENT: Reports Ears normal, Nose normal and Erythema (oropharynx) Neck: Supple Respiratory: Reports Airway patent, Crackles, Rhonchi, Wheezes and Retractions Cardiovascular: Reports Pulses normal, No rub and No murmur GI/: Reports Soft, Nontender, No masses and Bowel sounds normal Musculoskeletal: Reports Normal strength, ROM intact, No edema and No calf tenderness Skin: Reports Warm, Dry and Normal color Neurological: Reports Sensation intact, Motor intact, Reflexes intact, Cranial nerves intact and Alert Psychiatric: Reports Anxious Interpretation Radiology Interpretation Xray Comments: see the report. Radio Division Captain Rate: Normal Rhythm: Sinus EKG Interpretation Rate: Normal Rhythm: Sinus [place]: NL ST Segment: Normal Re-Evaluation Re-Evaluation Time of Re-Evaluation: 14:51 Status: Improved Vital Signs Stable: Yes Pain Level: 0 Appearance: NAD Lungs: Other (mild generalized wheezes, rhonchiand post crackles.) Skin: Warm and Dry Neuro: Alert and Oriented X3 CV: RRR Critical Care Note Critical Care Note Total Critical Care Time (mins): 0 Course Course Hematology/Chemistry: 06/11/21 14:20 06/11/21 14:20 Orders, Labs, Meds: Lab Review 06/11/21 06/11/21 06/11/21 14:15 14:20 14:20 WBC 5.20 RBC 4.83 Hgb 15.0 Hct 44.7 MCV 92.5 MCH 31.1 H MCHC 33.6 RDW Coeff of Brianne 12.7 Plt Count 170 Immature Gran % (Auto) 0.4 Neut % (Auto) 58.8 Lymph % (Auto) 26.9 Mineral % (Auto) 13.5 H Eos % (Auto) 0.2 Baso % (Auto) 0.2 Neut # (Auto) 3.1 Lymph # (Auto) 1.4 Mineral # (Auto) 0.7 Eos # (Auto) 0.0 Baso # (Auto) 0.0 Immature Gran # (Auto) 0.0 PT INR Puncture Site Base Excess O2 Saturation ABG pH ABG pCO2 ABG pO2 ABG HCO3 ABG Total CO2 Froilan Test Hemoglobin Oxyhemoglobin Carboxyhemoglobin Total Hemoglobin FiO2 % Sodium 135.7 Potassium 3.81 Chloride 98.8 Carbon Dioxide 33.6 H Anion Gap 7.11 BUN 18.0 H Creatinine 0.66 Estimated GFR (MDRD) 91.00 BUN/Creatinine Ratio 27.27 Glucose 348.2 H Hemoglobin A1c Lactic Acid Calcium 8.82 Ferritin Total Bilirubin 0.68 AST 61.0 H ALT 65.0 H Alkaline Phosphatase 96.1 Troponin I < 0.012 NT-Pro-B Natriuret Pep 441.000 H Total Protein 7.00 Albumin 3.68 Globulin 3.32 Albumin/Globulin Ratio 1.10 D-Dimer Influ A Molecular Assay Influ B Molecular Assay SARS CoV-2 RNA Rapid JAVIER Positive H 06/11/21 06/11/21 06/11/21 14:20 14:20 14:20 WBC RBC Hgb Hct MCV MCH MCHC RDW Coeff of Brianne Plt Count Immature Gran % (Auto) Neut % (Auto) Lymph % (Auto) Mineral % (Auto) Eos % (Auto) Baso % (Auto) Neut # (Auto) Lymph # (Auto) Mineral # (Auto) Eos # (Auto) Baso # (Auto) Immature Gran # (Auto) PT 9.9 INR 0.95 Puncture Site Base Excess O2 Saturation ABG pH ABG pCO2 ABG pO2 ABG HCO3 ABG Total CO2 Froilan Test Hemoglobin Oxyhemoglobin Carboxyhemoglobin Total Hemoglobin FiO2 % Sodium Potassium Chloride Carbon Dioxide Anion Gap BUN Creatinine Estimated GFR (MDRD) BUN/Creatinine Ratio Glucose Hemoglobin A1c 7.95 H Lactic Acid Calcium Ferritin Total Bilirubin AST ALT Alkaline Phosphatase Troponin I NT-Pro-B Natriuret Pep Total Protein Albumin Globulin Albumin/Globulin Ratio D-Dimer 1578.71 H Influ A Molecular Assay Influ B Molecular Assay SARS CoV-2 RNA Rapid JAVIER 06/11/21 06/11/21 06/11/21 14:20 14:21 14:30 WBC RBC Hgb Hct MCV MCH MCHC RDW Coeff of Brianne Plt Count Immature Gran % (Auto) Neut % (Auto) Lymph % (Auto) Mineral % (Auto) Eos % (Auto) Baso % (Auto) Neut # (Auto) Lymph # (Auto) Mineral # (Auto) Eos # (Auto) Baso # (Auto) Immature Gran # (Auto) PT INR Puncture Site R rad Base Excess 6.9 H O2 Saturation 83.9 L ABG pH 7.43 ABG pCO2 47.0 H ABG pO2 47.0 L* ABG HCO3 31.2 H ABG Total CO2 32.6 H Froilan Test Yes Hemoglobin 0.8 Oxyhemoglobin 84.1 L Carboxyhemoglobin 1.8 H Total Hemoglobin 14.9 FiO2 % 21.0 Sodium Potassium Chloride Carbon Dioxide Anion Gap BUN Creatinine Estimated GFR (MDRD) BUN/Creatinine Ratio Glucose Hemoglobin A1c Lactic Acid 1.78 Calcium Ferritin 478.00 H Total Bilirubin AST ALT Alkaline Phosphatase Troponin I NT-Pro-B Natriuret Pep Total Protein Albumin Globulin Albumin/Globulin Ratio D-Dimer Influ A Molecular Assay Influ B Molecular Assay SARS CoV-2 RNA Rapid JAVIER 06/11/21 14:40 WBC RBC Hgb Hct MCV MCH MCHC RDW Coeff of Brianne Plt Count Immature Gran % (Auto) Neut % (Auto) Lymph % (Auto) Mineral % (Auto) Eos % (Auto) Baso % (Auto) Neut # (Auto) Lymph # (Auto) Mineral # (Auto) Eos # (Auto) Baso # (Auto) Immature Gran # (Auto) PT INR Puncture Site Base Excess O2 Saturation ABG pH ABG pCO2 ABG pO2 ABG HCO3 ABG Total CO2 Froilan Test Hemoglobin Oxyhemoglobin Carboxyhemoglobin Total Hemoglobin FiO2 % Sodium Potassium Chloride Carbon Dioxide Anion Gap BUN Creatinine Estimated GFR (MDRD) BUN/Creatinine Ratio Glucose Hemoglobin A1c Lactic Acid Calcium Ferritin Total Bilirubin AST ALT Alkaline Phosphatase Troponin I NT-Pro-B Natriuret Pep Total Protein Albumin Globulin Albumin/Globulin Ratio D-Dimer Influ A Molecular Assay Negative by naat Influ B Molecular Assay Negative by naat SARS CoV-2 RNA Rapid JAVIER Orders Category Date Time Status ABG DRAW REQUEST Stat CARDIO 06/11/21 14:15 Completed EKG-(ED ONLY) Stat CARDIO 06/11/21 14:14 Completed METERED DOSE INHALATION Routine CARDIO 06/11/21 14:14 Completed Saline Lock [ED IV/MEDIPORT/POWERPORT] .ONCE EMERGENCY 06/11/21 14:14 Active ABG COOX Stat LAB 06/11/21 14:21 Completed CBC W/ AUTO DIFF Stat LAB 06/11/21 14:20 Completed COMPREHENSIVE METABOLIC PANEL Stat LAB 06/11/21 14:20 Completed FLU A/B MOLECULAR Stat LAB 06/11/21 14:40 Completed LACTIC ACID Stat LAB 06/11/21 14:30 Completed MOLECULAR GROUP A STREP Stat LAB 06/11/21 14:40 Completed NT-PROBNP Stat LAB 06/11/21 14:20 Completed TROPONIN I Stat LAB 06/11/21 14:20 Completed 0.9 % Sodium Chloride [Saline Flush] MEDS 06/11/21 14:14 Discontinued 1 syr IVF PRN PRN Albuterol Inhaler(with Spacer) [Ventolin Hfa (Per Puff- MEDS 06/11/21 14:14 Discontinued with Spacer)] 4 puff IH ONCE ONE Guaifenesin [Mucinex] MEDS 06/11/21 14:47 Discontinued 600 mg .ROUTE .STK-MED ONE Guaifenesin [Mucinex] MEDS 06/11/21 14:33 Discontinued 600 mg PO ONCE ONE Ipratropium Inhaler(Spacer) [Atrovent Hfa Inhaler (Per MEDS 06/11/21 14:14 Discontinued Puff-with Spacer)] 4 puff IH ONCE ONE Methylprednisolone Sod Succ/Pf [Solu-Medrol 125 mg] MEDS 06/11/21 14:14 Discontinued [address] CHEST W/O CONTRAST Stat RADS 06/11/21 14:14 Completed Medications Generic Name Dose Route Start Last Admin Trade Name Freq PRN Reason Stop Dose Admin Acetaminophen 500 mg 06/11/21 17:42 Acetaminophen 500 Mg Tablet PO Q6H PRN pain/fever Albuterol Sulfate 2 puff 06/11/21 17:33 06/11/21 19:50 Albuterol Sulfate (Ventolin Hfa) 18 Gm 1 Puff With Spacer IH 2 puff Q4-6H PRN Administration shortness of breath/wheeze Amlodipine Besylate 10 mg 06/11/21 18:00 06/11/21 20:46 Amlodipine Besylate 5 Mg Tablet PO 10 mg DAILY JODY Administration Benazepril HCl 10 mg 06/11/21 18:00 06/11/21 20:46 Benazepril Hcl 10 Mg Tablet PO 10 mg DAILY JODY Administration Carvedilol 25 mg 06/11/21 21:00 06/11/21 20:46 Carvedilol 12.5 Mg Tablet PO 25 mg BID JODY Administration Dexamethasone Sodium Phosphate 6 mg 06/11/21 18:30 06/11/21 20:38 Dexamethasone Sod Phos 10 Mg/Ml Inj IV 06/21/21 17:31 6 mg DAILY JODY Administration Enoxaparin Sodium 40 mg 06/11/21 21:00 06/11/21 20:37 Enoxaparin Sodium 40 Mg/0.4 Ml Syr SUBCUT 40 mg Q12HR JODY Administration Ergocalciferol 50,000 unit 06/16/21 18:00 Ergocalciferol (Vitamin D2) 50,000 Unit Capsule PO Q7D [facility] Gabapentin 300 mg 06/11/21 21:00 06/11/21 20:46 Gabapentin 300 Mg Capsule PO 300 mg BEDTIME JODY Administration Gabapentin 100 mg 06/12/21 09:00 Gabapentin 100 Mg Capsule PO 0900,1300,1700 [facility] REMDESIVIR SOLUTION 100 mg/ 270 mls @ 270 mls/hr 06/12/21 09:00 Sodium Chloride IV 06/15/21 23:59 DAILY [facility] Azithromycin 500 mg/ Sodium 250 mls @ 125 mls/hr 06/12/21 14:00 Chloride IV 06/13/21 15:00 DAILY [facility] Ceftriaxone Sodium 1 gm/ 100 mls @ 150 mls/hr 06/12/21 14:00 Sodium Chloride IV 06/15/21 13:59 DAILY [facility] Insulin Human Lispro 0 unit 06/11/21 17:37 06/11/21 23:01 Insulin Lispro 100 Unit/Ml (3 Ml) Vial SUBCUT 10 unit PRN PRN Administration hyperglycemia Protocol Ipratropium [place] 4 puff 06/11/21 20:00 06/11/21 19:50 Ipratropium [place] 12.9 Gm Hfa Inhaler Per Puff With Spacer IH 4 puff RTQID [facility] Administration Levothyroxine Sodium 224 mcg 06/12/21 06:30 Levothyroxine Sodium 112 Mcg Tablet PO QDAC [facility] Levothyroxine Sodium 50 mcg 06/12/21 06:30 Levothyroxine Sodium 50 Mcg Tablet PO QDAC [facility] Lovastatin 20 mg 06/11/21 18:00 06/11/21 20:46 Lovastatin 20 Mg Tablet PO 20 mg QPM [facility] Administration Omeprazole 20 mg 06/11/21 21:00 06/11/21 20:47 Omeprazole 20 Mg Capsule.Dr PO 20 mg BID [facility] Administration Ondansetron HCl 4 mg 06/11/21 17:43 Ondansetron Hcl/Pf 4 Mg/2 Ml Sdv IVP Q6H PRN nausea/vomiting Sodium Chloride 1 syr 06/12/21 05:00 0.9% Sodium Chloride 10 Ml Disp.Syrin IVF Q8HR [facility] Discontinued Medications Generic Name Dose Route Start Last Admin Trade Name Freq PRN Reason Stop Dose Admin Albuterol Sulfate 4 puff 06/11/21 14:14 06/11/21 14:53 Albuterol Sulfate (Ventolin Hfa) 18 Gm 1 Puff With Spacer IH 06/11/21 14:15 4 puff ONCE ONE Administration Azithromycin 500 mg 06/11/21 17:30 06/11/21 17:46 Azithromycin 250 Mg Tablet PO 06/14/21 17:29 500 mg DAILY [facility] Administration Clonidine 0.1 mg 06/11/21 17:48 06/11/21 20:44 Clonidine Hcl 0.1 Mg Tablet PO 06/11/21 17:49 0.1 mg ONCE ONE Administration Dexamethasone Sodium Phosphate 6 mg 06/11/21 18:00 06/11/21 20:57 Dexamethasone Sod Phos 10 Mg/Ml Inj IM 06/21/21 17:31 Not Given DAILY [facility] Ergocalciferol 50,000 unit 06/11/21 18:00 06/11/21 20:15 Ergocalciferol (Vitamin D2) 50,000 Unit Capsule PO Not Given Q7D JODY Gabapentin 100 mg 06/11/21 21:00 Gabapentin 100 Mg Capsule PO TID JODY Guaifenesin 600 mg 06/11/21 14:33 06/11/21 14:38 Guaifenesin 600 Mg Tablet.Er PO 06/11/21 14:34 600 mg ONCE ONE Administration REMDESIVIR SOLUTION 200 mg/ 290 mls @ 145 mls/hr 06/11/21 17:29 06/11/21 21:44 Sodium Chloride IV 06/11/21 19:28 Not Given ONCE ONE CEFTRIAXONE/D5W 1 GM PREMIX 1 gm in 50 mls @ 75 mls/hr 06/11/21 20:12 06/11/21 20:35 Rocephin 1 Gm/50 Ml D5w IV 06/11/21 20:51 75 mls/hr ONCE ONE Administration Insulin Human Lispro 10 unit 06/11/21 20:13 06/11/21 20:39 Insulin Lispro 100 Unit/Ml (3 Ml) Vial SUBCUT 06/11/21 20:14 10 unit ONCE ONE Administration Ipratropium [place] 4 puff 06/11/21 14:14 06/11/21 14:54 Ipratropium [place] 12.9 Gm Hfa Inhaler Per Puff With Spacer IH 06/11/21 14:15 4 puff ONCE ONE Administration Methylprednisolone Sodium Succinate 125 mg 06/11/21 14:14 06/11/21 14:38 Methylprednisolone Sod Succ/Pf 125 Mg/2 Ml Vial IVP 06/11/21 14:15 125 mg ONCE ONE Administration Sodium Chloride 1 syr 06/11/21 14:14 06/11/21 20:38 0.9% Sodium Chloride 10 Ml Disp.Syrin IVF 1 syr PRN PRN Administration To flush IV Vital Signs: Temp Pulse Resp BP Pulse Ox 06/11/21 14:15 99.3 F 104 H 26 H 183/65 H 82 L Discharge Plan Discharge Patient Disposition: ADMITTED INPATIENT Discharge Problem: Pneumonia due to COVID-19 virus ED Provider: MARYANN SINGLETARY Condition: Stable Physician Progress Note: []Pt was d/w Dr Alfred and admitted to inpatient care. See the orders.
[2021-06-12] MEDS: HUMALOG SUBCUT PRN ×10 (01:02→23:18)
[2021-06-12] MEDS: VENTOLIN HFA (PER PUFF-WITH SPACER) IH PRN ×4 (05:00→19:35)
[2021-06-12] MEDS: ATROVENT HFA INHALER (PER PUFF-WITH SPACER) IH SCH ×4 (05:00→19:35)
[2021-06-12 05:12] LABS: ABG O2 HGB 90.9 % (95-100); ABG PH 7.35 (7.35-7.45); BEecf 6.4 (-2.0-3.0); MetHb 0.3 (0-1.5); TCO2 33.8 (19-24); sO2 90.9 % (94-98); tHb 14.4 g/dl (11.7-17.4)
[2021-06-12 05:31] LABS: HEMATOCRIT 44.1 % (37.0-47.0); HEMOGLOBIN 14.5 g/dl (12.0-16.0); IMMATURE GRANULOCYTE % (AUTO) 0.3 % (0.0-5.0); LYMPHOCYTES # (AUTO) 0.8 K/uL (0.60-3.4); LYMPHOCYTES % (AUTO) 23.4 (10.0-50.0); MEAN CORPUSCULAR HEMOGLOBIN 30.5 pg (27.0-31.0); MEAN CORPUSCULAR HGB CONC 32.9 (31.8-35.4); MEAN CORPUSCULAR VOLUME 92.6 fl (81.0-99.0); MONOCYTES # (AUTO) 0.3 K/uL (0.4-2.0); MONOCYTES % (AUTO) 8.3 (0-10); NEUTROPHILS # (AUTO) 2.2 K/ul (2.0-6.9); PLATELET COUNT 163 10^3/uL (140-440); RDW COEFFICIENT OF VARIATION 12.4 % (11.6-14.8); RED BLOOD COUNT 4.76 10^6/ul (4.20-5.40); WHITE BLOOD COUNT 3.25 K/ul (4.6-10.2)
[2021-06-12 05:46] LABS: ALBUMIN 3.36 g/dL (3.5-5.0); ALKALINE PHOSPHATASE 77.7 U/L (53-141); ASPARTATE AMINO TRANSFERASE 53.8 U/L (14-36); BILIRUBIN,TOTAL 0.38 mg/dL (0.2-1.3); BLOOD UREA NITROGEN 29.3 mg/dL (7-17); CALCIUM 8.66 mg/dL (8.4-10.2); CHLORIDE 99.4 mmol/L (98-107); CREATININE 0.74 mg/dL (0.60-1.30); GLUCOSE 391.1 mg/dL (74-106); POTASSIUM 4.47 mmol/L (3.5-5.1); SODIUM 135.5 mmol/L (134.5-145)
[2021-06-12 05:58] LABS: PROTHROMBIN TIME 10.4 SEC (9.3-11.0)
[2021-06-12 06:00] LABS: TROPONIN I < 0.012 ng/ml (0.0000-0.120)
[2021-06-12] MEDS: SYNTHROID PO SCH ×2 (06:04→06:05)
--- NOTE | 2021-06-12 07:20 | PCM.PROG ---
Date Seen by Provider: 06/12/21 Time Seen by Provider: 07:17 Subjective: 60-year-old female hospital day #2 admitted on 06/12/21 with COVID- pneumonia, diabetes insulin-dependent with hyperglycemia uncontrolled, hypertension uncontrolled, morbid obesity class III body mass index just at 60, COVID vaccinated but not boosted, mixed pattern ABG, history of COPD, diabetic neuropathy, lymphedema bilateral lower extremities. Today is azithromycin 500mg day 2/, Rocephin 1 gram day 07/07, Remdesivir day 06/06, dexamethasone day 2. Overnight vitals showed patient to be afebrile with T-max of 99.3. Pulse rate was 104 in the emergency room and has been 67-89 since then. Blood pressure is better this morning. She 183/65 and this morning 144/66. Goal blood pressure less than 140/90. I did increase her Norvasc to 10 mg daily. We will continue to monitor. She does not have IV fluids running at this time. Respiratory rate has improved she was 26 in the emergency room and she has been 18-21 since. The patient's O2 has been 92 to 95% since admission on 3 to 4 L of nasal cannula. Telemetry data reviewed since admission sinus rhythm QRS intervals 0.06 and IN interval of point 160.18. No evidence of heart block. Input and output data was reviewed 5 voids since admission 3 already this morning. Blood sugar checks remain greater than 350. With steroid effect I suspect hyperglycemia. I will change Accu-Cheks to every 2 hours and we correct insulin q 2 hours. I contacted nursing this am. She did not get her lantus last night. At this time I do not know how best to adjust insulin as many of the orders I placed were d/c. This am lantus 170 units to be given. Labs this morning showed white blood cell count has dropped to 3.25, hemoglobin stable 14.5, platelets 163. . INR 1.0. Blood gas pH 7.35 PCO2 58 HCO3 32 total CO2 33.8. Froilan's test positive. This was on 4 L nasal cannula. Metabolic panel showed 135 for the sodium, potassium 4.47, chloride 99.4 all normal for electrolytes. Calcium 8.66. Ferritin 5.89. Mild elevation of AST and ALT at 53.8 and 63. I ordered a CK fo r yesterday evening and it returned as 58 and okay. Troponin daily today was normal. TSH within normal limits 0.809. D-dimer returned as 1578.[address] PE protocol chest this morning. Ferritin has increased from 4 78-5 89. Remdesivir will start today. ABG today now shows primary compensated respiratory acidosis. Overnight nursing notes reviewed. I was contacted at 2017 blood sugar 428. 10 units Humalog recheck in 2 hours. Please start Rocephin tonight. Patient has declined pneumonia and influenza vaccine. I was contacted at 2256 last night with Accu-Chek of 497 10 more units check in 2 hours recommended. I was called at 1 AM Accu-Chek 484 recommended 16 units recheck in 1 hour 8 more units given at 242 due to blood sugar of 400. Contacted nursing this morning and patient has declined remdesivir. Per nursing they were afraid that I would not treat her if she declined this. Nursing reassured patient that this is not the case. O2 seems to be stable breathing seems to be stable the biggest issue seems to be the patient's extreme hyperglycemia. She did not get her Lantus yesterday. I will resume that this morning increase by 10 units to a total of 170 units to be given now. We will watch sugars today. If the patient does not want remdesivir, we can try to set her up with home oxygen and we can change her to a azithromycin p.o. plus cefdinir to cover for pneumonia. She can have the option to go home if not requiring IV remdesivir. I will discussed with patient this morning. At time of admission we discussed proning, discussed oxygen, discussed remdesivir discussed the next appropriate steps. Questions were answered to her satisfactory state. She did not express any issues at that time. And she has had some now. I understand her concerns and we will continue to work with her wishes to best help her. REVIEW OF SYMPTOMS: (Positives bolded) General: weight loss,fever, chills,night sweats, fatigue, appetite loss,Loss of taste/smell HEENT: blurry vision, eye pain, eye discharge, dry eyes, decreased vision, sore throat tinnitus, bloody nose, hearing loss,sinus pain/pressure,ear pain/pressure. Respiratory: shortness of breath, cough,hemoptysis,wheezing,pleurisy, Cardiovascular:chest pain, PND, palpitation, edema,orthopnea,syncope, swelling of extremities Gastro: Nausea, vomiting,diarrhea, hematemesis, abdominal pain, constipation Genito:hematuria, dysuria, glycosuria, hesitancy, frequency, incontinence Musckelo:Arthralgia, myalgia,muscle weakness, joint swelling, NSAID use Skin:rash, pruritis, sores, nail changes, skin thickening, change in wart/mole, itching, Neuro: Migraine, numbness, ataxia, tremor, vertigo,weakness,memory loss, Irritability,dizziness Endocrine:excessive thirst, polyuria, cold intolerance, heat intolerance, goiter,+DM Psychiatric:depression,anxiety,alcohol abuse, drug abuse, insomnia,change in sleep patternand mood changes Heme/lymph:easy bruising, bleeding gums, blood clots, swollen glands, lymphedema, Allergic/immune:allergic rhinitis, hay fever, asthma, hives,+COPD Objective: Vital Signs - 24 hr 06/11/21 14:15 06/11/21 17:24 06/11/21 17:28 Temperature 99.3 F 99.3 F Pulse Rate 104 H 80 104 H Respiratory Rate 26 H 18 26 H Blood Pressure 183/65 H 181/91 H 183/65 H O2 Sat by Pulse Oximetry 82 L 94 L 82 L 06/11/21 18:45 06/11/21 19:56 06/11/21 21:19 Temperature 97.9 F 98.0 F Pulse Rate 89 81 Respiratory Rate 21 18 Blood Pressure 160/78 H O2 Sat by Pulse Oximetry 96 94 L 95 06/12/21 01:18 06/12/21 05:50 06/12/21 06:00 Temperature 98.3 F Pulse Rate 67 Respiratory Rate 20 Blood Pressure 144/66 H O2 Sat by Pulse Oximetry 95 93 L 92 L 06/12/21 07:00 Temperature Pulse Rate Respiratory Rate Blood Pressure O2 Sat by Pulse Oximetry 94 L Constitutional:Appearance-No respiratory distress, Consistent with stated age.Orientation- Oriented x 3, alertBuild and Nutrition-[Class 3 Obesity, extreme BMI 59]General- Patient is pleasant and cooperative with the interview and exam. Scared, rapid breathing/tachypnea, shallow inspiration. Desaturation with leaning forward/movement. Integumentary: General-No rashes, ulcers or lesions.Palpation- Dry skin moisture worse bilateral LE distal to knees. Skin is warm to touch, appropriate. Capillary refill is normal bilateral Upper and lower extremity. Reduced pedal hair. ENMT:Nose and sinus- No sinus tenderness along frontal/maxillary region. External appearance normal and midline.Nares- bilateral quiet airflow, no discharge.Nasal mucosa- No bleeding noted and no ulcerations observed. [place], moist. Turbinates non boggy.Lips-normal color, moist without cracks/lesions Oral Cavity/Palate- hard/soft palate intact without lesions, oral mucosa pink and moist. Tongue normal midline.Oropharynx- no pharyngeal erythema, Uvula midline. No post nasal drip. No exudate.Salivary glands- Non tender to palpation CHEST/LUNG:Inspection- Large/barrel chest, symmetrical. NO chest wall deformity. Increased effort, distress none today. No use of accessory muscles nor abdominal breathing.Palpation- nontender sternum, ribline. No abnormal pulsations.Auscultation- Breath sounds diminished throughout all lung augutse. tracheal sounds, bronchial sounds overlying sternum, Bronchovessicular sounds between scapulae posteriorly, vessicular breath sounds heard throughout periphery. Lungs scattered rhonchi, distant rales, pectoriloquy + bilaterally and along lower lobes, rales, crackles bilaterally lower lobes. Adventitious sounds- wheezes, rales, rhonchi present, poor aeration. CARDIOVASCULAR:Carotid artery-normal, no bruits or abnormal pulsations. Jugular vein- no pulsations.Palpation/Percussion- Normal PMI, no palpable thrillAuscultation- Regular rate and rhythm. No murmur noted in sitting, supine positions.Extremities- no digital clubbing, cyanosis, edema, increased warmth. ABDOMEN:Inspection- normal and no visible pulsations. Normal contour. Auscultation- Bowel sounds normal, no abdominal bruits.Palpation/Percussion- soft, non-tender, no rebound tenderness, no rigidity (guarding), no jar tenderness, no masses.Liver-no hepatomegaly,Spleen no splenomegaly, Peripheral Vascular:Upper extremityLeft- Normal temperature with pink nailbeds and no ulcerations.Upper extremity Right-Normal temperature with pink nailbeds and no ulcerations.Lower extremity- Normal temperature with pink nailbeds and no ulcerations. DP pulses 2+ bilaterally. Pedal hair reduced. Lymphedematous changes bilateral LE. Thickened skin, 2+ pedal edema, dependent. Thickened coarse skin. Musculoskeletal:Generalized-No generalized swelling or edema of extremities, no digital clubbing or cyanosis, neurovascularly intact all four extremities. Neurological:General- Moves all 4 extremities symmetrically. Symmetrical face and body posture.Cranial nerves- individually evaluated II-XII and intact. PERRLA, Normal EOMI, visual/special senses appear intact, Face is symmetrical and normal sensation/movement, normal tongue, normal strength/posture of neck musculature. Neuropsych:Oriented- Person, place, time. (AAOx3),Mood/affect- normal and congruent. Able to articulate well.Speech-Normal speech, normal rate, normal to ne, normal use of language, volume and coherence.Thought content- normal with ability to perform basic computations and apply abstract thought/reason. Associations- intact, no SI/HI, no hallucinations, delusions, obsessions. Judgment/insight- Appropriate.Memory-Recall intact, remote and recent memory intact.Knowledge- Age appropriate fund of knowledge, concentration and attention span normal. Lymphatic: Head/Neck- normal size and non tender to palpation. Laboratory Last Values WBC 3.25 K/ul (4.6-10.2) L 06/12/21 05:20 RBC 4.76 10^6/ul (4.20-5.40) 06/12/21 05:20 Hgb 14.5 g/dl (12.0-16.0) 06/12/21 05:20 Hct 44.1 % (37.0-47.0) 06/12/21 05:20 MCV 92.6 fl (81.0-99.0) 06/12/21 05:20 MCH 30.5 pg (27.0-31.0) 06/12/21 05:20 MCHC 32.9 (31.8-35.4) 06/12/21 05:20 RDW Coeff of Brianne 12.4 % (11.6-14.8) 06/12/21 05:20 Plt Count 163 10^3/uL (140-440) 06/12/21 05:20 Immature Gran % (Auto) 0.3 % (0.0-5.0) 06/12/21 05:20 Neut % (Auto) 68.0 % (42.2-75.2) 06/12/21 05:20 Lymph % (Auto) 23.4 (10.0-50.0) 06/12/21 05:20 [place] % (Auto) 8.3 (0-10) 06/12/21 05:20 Eos % (Auto) 0.0 % (0.0-7.0) 06/12/21 05:20 Baso % (Auto) 0.0 % (0.0-3.0) 06/12/21 05:20 Neut # (Auto) 2.2 K/ul (2.0-6.9) 06/12/21 05:20 Lymph # (Auto) 0.8 K/uL (0.60-3.4) 06/12/21 05:20 Meriwether # (Auto) 0.3 K/uL (0.4-2.0) L 06/12/21 05:20 Eos # (Auto) 0.0 K/ul (0.0-0.7) 06/12/21 05:20 Baso # (Auto) 0.0 K/uL (0-0.2) 06/12/21 05:20 Immature Gran # (Auto) 0.0 (0.0-1.0) 06/12/21 05:20 PT 10.4 SEC (9.3-11.0) 06/12/21 05:20 INR 1.00 SI (0.0-3.9) 06/12/21 05:20 Puncture Site Rrad 06/12/21 05:00 Base Excess 6.4 (-2.0-3.0) H 06/12/21 05:00 O2 Saturation 90.9 % (94-98) L 06/12/21 05:00 ABG pH 7.35 (7.35-7.45) 06/12/21 05:00 ABG pCO2 58.0 mmHg (35-45) H 06/12/21 05:00 ABG pO2 64.0 mmHg (85-100) L 06/12/21 05:00 ABG HCO3 32.0 (21-28) H 06/12/21 05:00 ABG Total CO2 33.8 (19-24) H 06/12/21 05:00 Froilan Test Pos 06/12/21 05:00 Hemoglobin 0.3 (0-1.5) 06/12/21 05:00 Oxyhemoglobin 90.9 % (95-100) L 06/12/21 05:00 Carboxyhemoglobin 2.0 (0.5-1.5) H 06/12/21 05:00 Total Hemoglobin 14.4 g/dl (11.7-17.4) 06/12/21 05:00 O2 Delivery Device Cannula 06/12/21 05:00 Oxygen Liter Flow 4.00 06/12/21 05:00 FiO2 % 21.0 % 06/11/21 14:21 Sodium 135.5 mmol/L (134.5-145) 06/12/21 05:20 Potassium 4.47 mmol/L (3.5-5.1) 06/12/21 05:20 Chloride 99.4 mmol/L (98-107) 06/12/21 05:20 Carbon Dioxide 34.0 mmol/L (22-30.0) H 06/12/21 05:20 Anion Gap 6.57 06/12/21 05:20 BUN 29.3 mg/dL (7-17) H 06/12/21 05:20 Creatinine 0.74 mg/dL (0.60-1.30) 06/12/21 05:20 Estimated GFR (MDRD) 80.00 mL/min 06/12/21 05:20 BUN/Creatinine Ratio 39.59 06/12/21 05:20 Glucose 391.1 mg/dL (74-106) H 06/12/21 05:20 Hemoglobin A1c 7.95 (4.0-6.0) H 06/11/21 14:20 Lactic Acid 1.78 mmol/L (0.7-2.1) 06/11/21 14:30 Calcium 8.66 mg/dL (8.4-10.2) 06/12/21 05:20 Ferritin 589.00 ng/mL (11.1-264.0) H 06/12/21 05:20 Total Bilirubin 0.38 mg/dL (0.2-1.3) 06/12/21 05:20 AST 53.8 U/L (14-36) H 06/12/21 05:20 ALT 63.0 U/L (0-35) H 06/12/21 05:20 Alkaline Phosphatase 77.7 U/L (53-141) 06/12/21 05:20 Total Creatine Kinase 58.0 U/L (30-135) 06/11/21 17:54 Troponin I < 0.012 ng/ml (0.0000-0.120) 06/12/21 05:20 NT-Pro-B Natriuret Pep 441.000 pg/mL (0-124) H 06/11/21 14:20 Total Protein 6.50 g/dL (6.3-8.2) 06/12/21 05:20 Albumin 3.36 g/dL (3.5-5.0) L 06/12/21 05:20 Globulin 3.14 06/12/21 05:20 Albumin/Globulin Ratio 1.07 06/12/21 05:20 TSH 0.809 uIU/L (0.465-4.68) 06/11/21 17:54 D-Dimer 1578.71 ng/mL (<500) H 06/11/21 14:20 Influ A Molecular Assay Negative by naat (NEGATIVE) 06/11/21 14:40 Influ B Molecular Assay Negative by naat (NEGATIVE) 06/11/21 14:40 SARS CoV-2 RNA Rapid JAVIER Positive (NEGATIVE) H 06/11/21 14:15 CT PE protocol: IMPRESSION: 1. Negative for pulmonary embolus. 2. Stable multifocal pneumonia. 3. Atherosclerosis. 4. Hepatic steatosis Plan: COVID+/Pneumonia/SIRS/Hypoxia: 60-year-old female admitted to the hospital 06/11/2021 with acute COVID hypoxia. Today is HD #2. Azithromycin day 2/3, Rocephin day 2/3, declined remdesivir. Sats maintained >89% on 4L NC. Labs reviewed, patient is stable overall. Sugars are elevated, seems to be chronic problem that we will need to address as Outpatient. Since she has declined remdesivir, we discussed possibility of going home on o2. She is on dexamethasone, sugars to be addressed today. CT PE protocol ordered/returned today and negative. We will continue to monitor today, if still doing well, plan for d/c in am tomorrow. Goal 3/3 days of azithromycin and rocephin, monitor symptoms and if stable >89% on NC 3-4L plan home o2 and d/c home. She agreed w/ plan. Full code. Daily labs to continue as listed below. Vitals no longer meet SIRS criteria. WBC <12, RR stable, o2 stable. - Admit inpatient Status: Dr. Alfred. - daily labs: CBC/CMP/Ferritin/INR/CRP/abg - O2 titrate >89%. - Remdesivir declined. - Dexamethasone 6mg IV day 2/5 - Azithromycin 500mg IV day 2/5 - Rocephin 1000mg IV day 2/5 Zofran 4mg IV PRN q 6 hours - Tylenol for pain/fever - No NSAIDS - Continue home meds (held estradiol as stroke risk/NM risk/clot risk is elevated) - Blood culture pending - Sputum culture pending Diabetes: A1C 7.95 here. After further discussion she was only using apidra 100 TID and none of the long acting insulin. We will monitor for hyperglycemica with the steroid. Will start with the 170 units of lantus, sliding scale to continue. I will likely increase to 180-200 units (10-20% increase) in next 1-2 days and ease the burden of the SSI. The patient is supposed to be on high dose insulin, not taking this though. I may need to change to every 2 hour Accu- Cheks and correct due to severe hyperglycemia from steroids. We will monitor overnight. Consider insulin drip as well. (DECLINED DRIP BY PATIENT) HTN:Chronic process. Resumed home meds to include the Itz-I and BB. Goal <140 SBP. Increased norvasc to 10mg daily. Will continue this while in hospital and likely d/c home with patient. Clonidine 0.1mg added PRN. Monitor overnight. HLD:Continue statin. Statin use ideally would be changed to crestor. Allergy to lipitor. Lovostatin is not ideal for this patient. Consider change to crestor as outpatient as high potency statin likely beneficial. - Discuss with patient as outpatient consider change to crestor. Hypovitaminosis D:Continue home treatment dosing regimen of weekly 50,000 units. Last levels 19.6 on 05/04/21. Hypothyroid:TSH was .810. Goal TSH 1-3.Despite slightly low value, recommended to continue Levothyroxine home dose 274mcg daily. DVT Prophy:40mg subcutaneous BID lovenox Class 3 obesity. Class 3 Obesity:F/U as OP. Diet:ADA 2000 calories GI prophy:Continue PPI. Established/Chronic problem. Issue" Ortho We reviewed latest news regarding bone loss, regarding risks for Cdiff, NM risks, Bacterial peritonitis, interstitial nephritis, Pneumonia risks due to watermaster use of PPI. Disposition: 60 yr old CF HD 2 admitted 06/11/21 with COVID pneumonia and numerous risk factors. We will consider d/c tomorrow if she continues to remain stable. CT PE protocol was negative. Labs to continue to be monitored. Telemetry to be monitored. We will complete azithromycin 500 mg 3 days. Dose #2 rocephin today. Declined remdesivir. We will need to monitor glucose closely. Plan to d/c in am tomorrow. We will continue dexamethasone 6 mg IV and will use this for total of 10 days> Again, plan to monitor hyperglycemia and we will treat accordingly. Discussed case with ER provider, reviewed previous OV, reviewed labs, reviewed ABG, reviewed imaging. Rounding time 36 minutes.
[2021-06-12] MEDS ORDERED: LANTUS SUBCUT SCH ×2 (07:30→21:00)
[2021-06-12] MEDS: PRILOSEC PO SCH ×2 (08:43→17:35)
[2021-06-12] MEDS: LOTENSIN PO SCH (08:44)
[2021-06-12] MEDS: COREG PO SCH ×2 (08:44→17:35)
[2021-06-12] MEDS: NORVASC PO SCH (08:45)
[2021-06-12] MEDS: DECADRON IV SCH (08:45)
[2021-06-12] MEDS: LOVENOX SUBCUT SCH ×2 (08:52→20:25)
[2021-06-12] MEDS ORDERED: ROCEPHIN 1 GM/50 ML D5W 1 GM/50 ML BAG IV SCH (09:00)
[2021-06-12] MEDS: NEURONTIN PO SCH ×4 (09:13→20:24)
[2021-06-12] MEDS ORDERED: LANTUS SUBCUT STA ×2 (11:43→21:50)
--- NOTE | 2021-06-12 13:22 | CT ---
EXAM: CTA of the pulmonary arteries with contrast TECHNIQUE: CTA of the pulmonary arteries was performed with contrast. 2-D and 3-D reconstructions we re performed. HISTORY: Elevated D-dimer. Pneumonia. COMPARISON: Chest CT 06/11/2021. FINDINGS: Pulmonary arteries: No pulmonary embolus detected. Lungs/pleura: Redemonstrated bilateral multifocal patchy ground-glass and consolidative opacities. No pleural effusion. Mediastinum: Calcified mediastinal lymph nodes consistent with granuloma formation. Cardiovascular: No pericardial effusion. Atherosclerosis of the aorta and branch vessels. Coronary ar awilda calcifications. Chest wall/axillae/thoracic inlet: Thyroid gland appears enlarged. Imaged upper abdomen: Multiple calcified granulomas in the spleen. Post cholecystectomy. Diffuse hy poattenuation of the liver. Bones: No aggressive osseous lesion identified. IMPRESSION: 1. Negative for pulmonary embolus. 2. Stable multifocal pneumonia. 3. Atherosclerosis. 4. Hepatic steatosis All CT scans are performed using dose optimization techniques as appropriate to the performed exam an d include at least one of the following: Automated exposure control, adjustment of the mA and/or kV according t o size, and the use of iterative reconstruction technique.
[2021-06-12] MEDS: ROCEPHIN 1 GM VIAL 1 GM in SODIUM CHLORIDE 100ML 100 ML IV SCH (13:38)
[2021-06-12] MEDS: ZITHROMAX 500 MG in SODIUM CHLORIDE 250 ML IV SCH (14:29)
[2021-06-12] MEDS: MEVACOR PO SCH (17:35)
[2021-06-13] MEDS: HUMALOG SUBCUT PRN ×2 (00:29→01:04)
[2021-06-13 05:03] VITALS: BP 116/91; TEMP 98.1
[2021-06-13] MEDS: ATROVENT HFA INHALER (PER PUFF-WITH SPACER) IH SCH ×2 (05:10→10:11)
[2021-06-13] MEDS: VENTOLIN HFA (PER PUFF-WITH SPACER) IH PRN ×2 (05:10→10:13)
[2021-06-13 05:25] LABS: ABG O2 HGB 89.6 % (95-100); ABG PH 7.35 (7.35-7.45); BEecf 8.1 (-2.0-3.0); COHb 1.8 (0.5-1.5); HCO3 33.7 (21-28); MetHb 0.8 (0-1.5); TCO2 35.6 (19-24); sO2 88.7 % (94-98); tHb 14.8 g/dl (11.7-17.4)
[2021-06-13 05:34] LABS: BASOPHILS % (AUTO) 0.1 % (0.0-3.0); HEMATOCRIT 46.7 % (37.0-47.0); HEMOGLOBIN 15.3 g/dl (12.0-16.0); IMMATURE GRANULOCYTE # (AUTO) 0.1 (0.0-1.0); IMMATURE GRANULOCYTE % (AUTO) 0.4 % (0.0-5.0); LYMPHOCYTES # (AUTO) 1.4 K/uL (0.60-3.4); LYMPHOCYTES % (AUTO) 10.6 (10.0-50.0); MEAN CORPUSCULAR HEMOGLOBIN 30.5 pg (27.0-31.0); MEAN CORPUSCULAR HGB CONC 32.8 (31.8-35.4); MONOCYTES # (AUTO) 1.2 K/uL (0.4-2.0); MONOCYTES % (AUTO) 8.6 (0-10); NEUTROPHILS # (AUTO) 10.9 K/ul (2.0-6.9); NEUTROPHILS % (AUTO) 80.3 % (42.2-75.2); PLATELET COUNT 243 10^3/uL (140-440); RDW COEFFICIENT OF VARIATION 12.6 % (11.6-14.8); RED BLOOD COUNT 5.02 10^6/ul (4.20-5.40); WHITE BLOOD COUNT 13.55 K/ul (4.6-10.2)
[2021-06-13] MEDS: PRILOSEC PO SCH (05:46)
[2021-06-13] MEDS: SYNTHROID PO SCH ×2 (05:46)
[2021-06-13 05:49] LABS: ALBUMIN 3.86 g/dL (3.5-5.0); ALKALINE PHOSPHATASE 108.3 U/L (53-141); ASPARTATE AMINO TRANSFERASE 53.4 U/L (14-36); CALCIUM 9.44 mg/dL (8.4-10.2); CARBON DIOXIDE 35.7 mmol/L (22-30.0); CHLORIDE 102.8 mmol/L (98-107); CREATININE 0.86 mg/dL (0.60-1.30); GLUCOSE 81.7 mg/dL (74-106); POTASSIUM 4.25 mmol/L (3.5-5.1); SODIUM 141.6 mmol/L (134.5-145); TOTAL PROTEIN 7.31 g/dL (6.3-8.2)
[2021-06-13 06:01] LABS: PROTHROMBIN TIME 9.7 SEC (9.3-11.0)
[2021-06-13 06:06] LABS: TROPONIN I < 0.012 ng/ml (0.0000-0.120)
[2021-06-13] MEDS ORDERED: LANTUS SUBCUT SCH ×2 (07:00→09:00)
[2021-06-13] MEDS: ROCEPHIN 1 GM VIAL 1 GM in SODIUM CHLORIDE 100ML 100 ML IV SCH (08:39)
[2021-06-13] MEDS: NORVASC PO SCH (08:40)
[2021-06-13] MEDS: DECADRON IV SCH (08:41)
[2021-06-13] MEDS: NEURONTIN PO SCH (08:41)
[2021-06-13] MEDS: LOTENSIN PO SCH (08:41)
[2021-06-13] MEDS: COREG PO SCH (08:41)
[2021-06-13] MEDS: LOVENOX SUBCUT SCH (08:42)
[2021-06-13] MEDS: ZITHROMAX 500 MG in SODIUM CHLORIDE 250 ML IV SCH (09:33)
--- NOTE | 2021-06-13 10:00 | PCM.DC ---
Final Diagnosis: Covid-19 Pneumonia/SIRS: Declined remdesivir. Azithromycin 500mg 3 doses/3 doses Rocephin 1 gram 3 doses/5 days of treatment Discharge on Cefdinir x 48 hours start 06/14/21. Hypoxia DM Insulin Dependent Hypertension Hyperlipidemia Class 3 Obesity Hypovitaminosis D Hypothyroidism Reason for Hospitalization: COVID Pneumonia, hypoxia. Now oxygen dependent. Hyperglycemia (Insulin Adjusted in hospital) D/C with Lantus 200 units daily until steroids resovled then 170 units daily. Apidra 30 units daily + correctional insulin. Home meds adjusted. Prognosis/Condition at Discharge: Stable/improved on NC 3-4 L. Goal 94-99%. Hyperglycemia am sugars ~90 stable/improved. Medically optimized and desired d/c home. Medications at Discharge: Ambulatory Orders Medication Instructions Recorded levothyroxine 137 mcg tablet 274 mcg PO QDAY tab 09/19/20 estradiol 1 mg tablet See Rx Instructions .ROUTE 11/02/20 .COMPLEX #30 tab fenofibrate micronized 134 mg See Rx Instructions .ROUTE 11/02/20 capsule .COMPLEX #30 cap lovastatin 40 mg tablet See Rx Instructions .ROUTE 11/02/20 .COMPLEX #30 tab benazepril 40 mg tablet See Rx Instructions .ROUTE 01/01/21 .COMPLEX #90 tablet carvedilol 25 mg tablet 25 mg PO BID #60 tab 04/03/21 gabapentin 100 mg capsule 100 mg PO TID #90 cap 05/04/21 gabapentin 300 mg capsule 300 mg PO QHS #30 cap 05/04/21 (Neurontin) omeprazole magnesium 20 mg 20 mg PO BID #20 tab 05/04/21 tablet,delayed release (Prilosec OTC) ergocalciferol (vitamin D2) 1,250 See Rx Instructions .ROUTE 05/09/21 mcg (50,000 unit) capsule (Vitamin .COMPLEX #4 cap D2) albuterol sulfate 90 mcg/actuation 2 puff INHALATION Q4-6H PRN #8.5 g 06/07/21 aerosol inhaler benzonatate 200 mg capsule 200 mg PO TID PRN #30 cap 06/07/21 amlodipine 10 mg tablet (Norvasc) 10 mg PO DAILY #30 tab 06/13/21 cefdinir 300 mg capsule 300 mg PO BID #4 cap 06/13/21 dexamethasone 6 mg tablet 6 mg PO DAILY #7 tab 06/13/21 (Decadron) fluconazole 150 mg tablet 150 mg PO ONCE #1 tab 06/13/21 (Diflucan) guaifenesin 600 mg tablet, 600 mg PO ONCE #60 tab 06/13/21 extended release 12 hr (Mucinex) insulin glargine 100 unit/mL (3 200 unit (2 mL) SUBCUT QAM #45 ml 06/13/21 mL) subcutaneous pen (Lantus Solostar U-100 Insulin) insulin glulisine U-100 100 30 unit (0.3 mL) SUBCUT QDAC #45 ml 06/13/21 unit/mL subcutaneous pen (Apidra SoloStar U-100 Insulin) pen needle, diabetic 32 gauge x #100 ea 06/13/21" (BD Ultra-Fine Melody Pen Needle) Lab/Diagnostics: Laboratory Last Values WBC 13.55 K/ul (4.6-10.2) H D 06/13/21 05:25 RBC 5.02 10^6/ul (4.20-5.40) 06/13/21 05:25 Hgb 15.3 g/dl (12.0-16.0) 06/13/21 05:25 Hct 46.7 % (37.0-47.0) 06/13/21 05:25 MCV 93.0 fl (81.0-99.0) 06/13/21 05:25 MCH 30.5 pg (27.0-31.0) 06/13/21 05:25 MCHC 32.8 (31.8-35.4) 06/13/21 05:25 RDW Coeff of Brianne 12.6 % (11.6-14.8) 06/13/21 05:25 Plt Count 243 10^3/uL (140-440) D 06/13/21 05:25 Immature Gran % (Auto) 0.4 % (0.0-5.0) 06/13/21 05:25 Neut % (Auto) 80.3 % (42.2-75.2) H 06/13/21 05:25 Lymph % (Auto) 10.6 (10.0-50.0) 06/13/21 05:25 [place] % (Auto) 8.6 (0-10) 06/13/21 05:25 Eos % (Auto) 0.0 % (0.0-7.0) 06/13/21 05:25 Baso % (Auto) 0.1 % (0.0-3.0) 06/13/21 05:25 Neut # (Auto) 10.9 K/ul (2.0-6.9) H 06/13/21 05:25 Lymph # (Auto) 1.4 K/uL (0.60-3.4) 06/13/21 05:25 [place] # (Auto) 1.2 K/uL (0.4-2.0) 06/13/21 05:25 Eos # (Auto) 0.0 K/ul (0.0-0.7) 06/13/21 05:25 Baso # (Auto) 0.0 K/uL (0-0.2) 06/13/21 05:25 Immature Gran # (Auto) 0.1 (0.0-1.0) 06/13/21 05:25 PT 9.7 SEC (9.3-11.0) 06/13/21 05:25 INR 0.93 SI (0.0-3.9) 06/13/21 05:25 Puncture Site Rrad 06/13/21 05:15 Base Excess 8.1 (-2.0-3.0) H 06/13/21 05:15 O2 Saturation 88.7 % (94-98) L 06/13/21 05:15 ABG pH 7.35 (7.35-7.45) 06/13/21 05:15 ABG pCO2 61.0 mmHg (35-45) H 06/13/21 05:15 ABG pO2 59.0 mmHg (85-100) L* 06/13/21 05:15 ABG HCO3 33.7 (21-28) H 06/13/21 05:15 ABG Total CO2 35.6 (19-24) H 06/13/21 05:15 [place] Test Pos 06/13/21 05:15 Hemoglobin 0.8 (0-1.5) 06/13/21 05:15 Oxyhemoglobin 89.6 % (95-100) L 06/13/21 05:15 Carboxyhemoglobin 1.8 (0.5-1.5) H 06/13/21 05:15 Total Hemoglobin 14.8 g/dl (11.7-17.4) 06/13/21 05:15 O2 Delivery Device Cannula 06/13/21 05:15 Oxygen Liter Flow 4.00 06/13/21 05:15 FiO2 % 21.0 % 06/11/21 14:21 Sodium 141.6 mmol/L (134.5-145) 06/13/21 05:25 Potassium 4.25 mmol/L (3.5-5.1) 06/13/21 05:25 Chloride 102.8 mmol/L (98-107) 06/13/21 05:25 Carbon Dioxide 35.7 mmol/L (22-30.0) H 06/13/21 05:25 Anion Gap 7.35 06/13/21 05:25 BUN 37.0 mg/dL (7-17) H 06/13/21 05:25 Creatinine 0.86 mg/dL (0.60-1.30) 06/13/21 05:25 Estimated GFR (MDRD) 67.00 mL/min 06/13/21 05:25 BUN/Creatinine Ratio 43.02 06/13/21 05:25 Glucose 81.7 mg/dL (74-106) D 06/13/21 05:25 Hemoglobin A1c 7.95 (4.0-6.0) H 06/11/21 14:20 Lactic Acid 1.78 mmol/L (0.7-2.1) 06/11/21 14:30 Calcium 9.44 mg/dL (8.4-10.2) 06/13/21 05:25 Ferritin 685.00 ng/mL (11.1-264.0) H 06/13/21 05:25 Total Bilirubin 0.40 mg/dL (0.2-1.3) 06/13/21 05:25 AST 53.4 U/L (14-36) H 06/13/21 05:25 ALT 65.0 U/L (0-35) H 06/13/21 05:25 Alkaline Phosphatase 108.3 U/L (53-141) D 06/13/21 05:25 Total Creatine Kinase 58.0 U/L (30-135) 06/11/21 17:54 Troponin I < 0.012 ng/ml (0.0000-0.120) 06/13/21 05:25 C-Reactive Prot, Quant 87 mg/L (0-10) H 06/12/21 05:20 NT-Pro-B Natriuret Pep 441.000 pg/mL (0-124) H 06/11/21 14:20 Total Protein 7.31 g/dL (6.3-8.2) 06/13/21 05:25 Albumin 3.86 g/dL (3.5-5.0) 06/13/21 05:25 Globulin 3.45 06/13/21 05:25 Albumin/Globulin Ratio 1.11 06/13/21 05:25 TSH 0.809 uIU/L (0.465-4.68) 06/11/21 17:54 D-Dimer 1578.71 ng/mL (<500) H 06/11/21 14:20 Influ A Molecular Assay Negative by naat (NEGATIVE) 06/11/21 14:40 Influ B Molecular Assay Negative by naat (NEGATIVE) 06/11/21 14:40 SARS CoV-2 RNA Rapid JAVIER Positive (NEGATIVE) H 06/11/21 14:15 CT in ED 06/11/21. IMPRESSION: 1. Bilateral pneumonia. 2. Cardiomegaly, atherosclerosis and small pericardial effusion. DDIMER noted to be Elevated at 1578.[address] PE Protocol on 06/12/21. IMPRESSION: 1. Negative for pulmonary embolus. 2. Stable multifocal pneumonia. 3. Atherosclerosis. 4. Hepatic steatosis WBC Trends 06/11/21 06/12/21 06/13/21 Range/Units 14:20 05:20 05:25 WBC 5.20 3.25 L 13.55 H D (4.6-10.2) K/ul Date Ferritin Trend: 06/11 478 06/12 589 06/13 685 Education Provided to Patient and Family: 1. COVID 19 2. Hypoxia/Oxygen Use. Pulse ox provided to her through hospital. Monitor for O2 <92% goal 94-99%. 3. Insulin Lantus how to use: 200 units daily while on steroids. Then back to 170 units daily. Insulin Pen and pen tips sent to pharmacy. Apidra how to use: 30 units with each meal: add correction. If 150-200 no additional units. If 201-250 5 additional units If 251-300 10 additional units If 301-350 15 additional units If 351-400 20 additional units. If >79036 additional units. Check blood sugar again in 2 hours and repeat the above correction if sugar is above 250. If <250 wait until next meal. - Check blood sugars before each meal and before bed 4. If Sick and not able to eat do not take the meal insulin. 5. If sick only take 1/2 of the dose of the lantus. 6. Please see IDANIA Solorio next Friday at 11 am. 7. Antibiotic education provided. 8. When to return to ED. d/w patient. Follow-ups: IDANIA Solorio 06/19/21. 11 am. Discharge Disposition: Home Hospital Course: 60-year-old female hospital day #3 admitted on June 11, 2021 with COVID-pneumonia (symptoms may have started ~06/05/21), SIRS criteria were met O2 82%, pulse 104, RR 26), hypoxia requiring O2. She has a history of underlying COPD, morbid obesity class III, diabetes 2 insulin-dependent uncontrolled A1c 7.95 in hospital, hyperglycemia greater than 500 throughout much of June 12, hypovitaminosis D (treated), hyperlipidemia (treated on lovastatin and d/w patient consider crestor change in future as OP), hypothyroidism stable (on levothyroxine TSH 0.809), hypertension with increase of Norvasc in hospital from 5 mg to 10 mg. The patient was started on nasal canula in the emergency room and she improved from the 80s up to the low to mid 90s. She decided on June 12 that she did not want remdesivir and we discussed possibility of discharge home as she felt she wanted to go home on home oxygen. However, her D-dimer ordered by me on June 11 returned elevated and we awaited a CT PE protocol on June 12. This returned negative. She was started on azithromycin 500 mg in the emergency room and received 3 dose equivalents of 500mg daily prior to d/c. IV blew 06/13/21 and final dose given oral. Rocephin dose 1 June 11, dose 2 yesterday. We attempted to get dose 3 today but she declined a repeat stick after IV was no longer functional. We will extend the outpatient cefdinir prescription by 1 day. She will be discharged on 3 more days of cefdinir and will not require any additional days of azithromycin. This should cover for CAP. As noted above she declined the remdesivir. She is maintaining oxygenation in the 90s on low-flow oxygen and she still wishes to go home. We spent much of June 12, 2021 focusing on her hyperglycemia. I have increased her basal insulin to 200 units and we did Accu-Cheks every 1-2 hours with 20 to 30 units humalog per evaluation throughout the night. Ultimately sugars improved back to normal range around midnight last night. She remains afebrile, blood pressure still a little bit elevated but better most recent this morning of 116/91. She was 144-155/66-78 yesterday. O2 on 4 L is 92 through 95%. Remote telemetry still looks normal with normal sinus rhythm, QRS intervals 0.06 and normal, IA intervals normal. Morning labs showed elevated white count of 13.55 hemoglobin of 15.3 and a platelet count of 243. Neutrophilia 80.3. This is likely steroidal effect at this time. She is on antibiotics as noted above. Coags this morning INR 0.93. Blood gas this morning pH remains 7.35 PCO2 of 61 PO2 of 59 HCO3 of 33.7. Morning metabolic panel showed normal sodium 141.6, potassium 4.25, chloride 102.8, glucose this morning 81.7. Ferritin 685 which is up from the 589 from yesterday. AST 53.4 ALT 65 troponin remains negative. Sugars 06/12/21 391.1, 06/12/21 572.6, 06/12/21 611.8, 06/12/21 81.7. The patient lost her IV at around 10:45 today. Plan for D/C around 1200 today. Information d/w nursing. Overnight nursing reviewed. Patient is optimized for medical discharge today. We have discussed insulin, diabetes, what to do if sick, what to do if missing meals etc. She is aware to back down to the 170 units lantus daily the day after her last dose of steroid. If not going to eat meal, do not take meal insulin. If unable to eat at all, only take 1/2 of the Lantus. She liked this plan and was requesting D/c home [facility] today. Patient exam was unchanged/stable. Vitals stable. She declined Remdesivir after d/w her about R/B/A on 06/11/21. Sugars are more stable, plan for d/c relayed to patient and to nursing. Day of Discharge Physical. exam: Vital Signs - 24 hr 06/12/21 13:00 06/12/21 14:00 06/12/21 19:00 Temperature 98.2 F Pulse Rate 86 Respiratory Rate 18 Blood Pressure 155/66 H O2 Sat by Pulse Oximetry 96 95 94 L 06/12/21 20:00 06/12/21 21:06 06/13/21 01:00 Temperature 97.4 F L Pulse Rate 74 Respiratory Rate 22 19 Blood Pressure 145/77 H O2 Sat by Pulse Oximetry 95 92 L 94 L 06/13/21 05:02 06/13/21 05:48 06/13/21 07:00 Temperature 98.1 F Pulse Rate 75 Respiratory Rate 21 Blood Pressure 116/91 H O2 Sat by Pulse Oximetry 92 L 92 L 90 L 06/13/21 10:00 Temperature Pulse Rate Respiratory Rate Blood Pressure O2 Sat by Pulse Oximetry 90 L Constitutional:Appearance-No respiratory distress, Consistent with stated age.Orientation- Oriented x 3, alertBuild and Nutrition-[Class 3 Obesity, extreme BMI 59]General- Patient is pleasant and cooperative with the interview and exam. Breathing calm today. Talks in full sentences. Integumentary: General-No rashes, ulcers or lesions.Palpation- Dry skin moisture worse bilateral LE distal to knees. Skin is warm to touch, appropriate. Capillary refill is normal bilateral Upper and lower extremity. Reduced pedal hair. ENMT:Nose and sinus- No sinus tenderness along frontal/maxillary region. Ext ernal appearance normal and midline.Nares- bilateral quiet airflow, no discharge.Nasal mucosa- No bleeding noted and no ulcerations observed. [place], moist. Turbinates non boggy.Lips-normal color, moist without cracks/lesions Oral Cavity/Palate- hard/soft palate intact without lesions, oral mucosa pink and moist. Tongue normal midline.Oropharynx- no pharyngeal erythema, Uvula midline. No post nasal drip. No exudate.Salivary glands- Non tender to palpation O2 NC in place. CHEST/LUNG:Inspection- Large/barrel chest, symmetrical. NO chest wall deformity. Increased effort, distress none today. No use of accessory muscles nor abdominal breathing.Palpation- nontender sternum, ribline. No abnormal pulsations.Auscultation- Breath sounds diminished throughout all lung auguste. tracheal sounds, bronchial sounds overlying sternum, Bronchovessicular sounds between scapulae posteriorly, vessicular breath sounds heard throughout periphery. Lungs scattered rhonchi, distant rales, Adventitious sounds- wheezes, rales, rhonchi present, poor aeration. CARDIOVASCULAR:Carotid artery-normal, no bruits or abnormal pulsations. Jugular vein- no pulsations.Palpation/Percussion- Normal PMI, no palpable thrillAuscultation- Regular rate and rhythm. No murmur noted in sitting, supine positions.Extremities- no digital clubbing, cyanosis, edema, increased warmth. ABDOMEN:Inspection- normal and no visible pulsations. Normal contour. Auscultation- Bowel sounds normal, no abdominal bruits.Palpation/Percussion- soft, non-tender, no rebound tenderness, no rigidity (guarding), no jar tenderness, no masses.Liver-no hepatomegaly,Spleen no splenomegaly, Peripheral Vascular:Upper extremityLeft- Normal temperature with pink nailbeds and no ulcerations.Upper extremity Right-Normal temperature with pink nailbeds and no ulcerations.Lower extremity- Normal temperature with pink nailbeds and no ulcerations. DP pulses 2+ bilaterally. Pedal hair reduced. L ymphedematous changes bilateral LE. Thickened skin, 2+ pedal edema, dependent. Thickened coarse skin. Musculoskeletal:Generalized-No generalized swelling or edema of extremities, no digital clubbing or cyanosis, neurovascularly intact all four extremities. Neurological:General- Moves all 4 extremities symmetrically. Symmetrical face and body posture.Cranial nerves- individually evaluated II-XII and intact. PERRLA, Normal EOMI, visual/special senses appear intact, Face is symmetrical and normal sensation/movement, normal tongue, normal strength/posture of neck musculature. Neuropsych:Oriented- Person, place, time. (AAOx3),Mood/affect- normal and congruent. Able to articulate well.Speech-Normal speech, normal rate, normal tone, normal use of language, volume and coherence.Thought content- normal with ability to perform basic computations and apply abstract thought/reason. Associations- intact, no SI/HI, no hallucinations, delusions, obsessions. Judgment/insight- Appropriate.Memory-Recall intact, remote and recent memory intact.Knowledge- Age appropriate fund of knowledge, concentration and attention span normal. Lymphatic: Head/Neck- normal size and non tender to palpation. Plan: 1. Discharge today 2. Home Oxygen 4Lpm maintain oxygen >89%. 3. Dexamethasone to continue for total of 10 days. 4. Azithromycin 3/3 days to be completed in hospital for pneumonia 5. Ceftriaxone 3rd day to be completed in hospital for pneumonia (IV failed. 6. Cefdinir to continue for another 3 days outside of hospital to complete course for pneumonia. 7. NEW BP medication dose NORVASC 10mg daily. 8. NEW INSULIN: - LONG ACTING LANTUS: Please take 200units daily in the am with breakfast until the steroid is done then return to 170 units daily. - Apidra: Was taking 100 units 3x daily with meals. I want patient to back down to 30 per meals + correctional as listed below. If 150-200 no additional units. If 201-250 5 additional units If 251-300 10 additional units If 301-350 15 additional units If 351-400 20 additional units. If >400 20 additional units. Check blood sugar again in 2 hours and repeat the above correction if sugar is above 250. If <250 wait until next meal. - Check blood sugars before each meal and before bed. 9. Return to ER if Oxygen remains <89%, worsening shortness of breath, chest pain, worsening symptoms. 10. Monitor BP 2x daily x 1 week. If persistently >140/90, please contact clinic. F/U Appt with [facility] [place] Friday06/19/21 Oxygen: YAYA 99 DX U07.1, J12.82 Oxygen Continuous 3-4L per nasal Canula. Portable with Conserving Device. Discharge Today >30 minutes. Total time spent rounding/completion of 35 minutes.
[2021-06-13] MEDS ORDERED: ZITHROMAX PO ONE (10:46)
[2021-06-13] MEDS ORDERED: VEKLURY 100 MG in SODIUM CHLORIDE 250 ML IV SCH (12:00)
[2021-06-16] MEDS ORDERED: DRISDOL PO SCH (18:00)
== END 2021-06-13 12:18 | disposition home or self-care (01) | DRG 177 ==
LOC: ED 13:51 → SCU 17:02
PROVIDERS: ADMIT Family Medicine; ATTEND Family Medicine